=== PATIENT | male | born 1985 | race Two or more races ===

== ENCOUNTER 2018-03-04 17:28 | Emergency (ER) | payer MEDICAID ==
[~2018-03-04] VITALS: Ht 177.8 cm; Wt 138.4 kg
[2018-03-04] MEDS ORDERED: KETOROLAC 30 MG/1 ML IM ONE (18:00)
[2018-03-04 18:05] LABS: MICROSCOPIC INDICATED
[2018-03-04 18:06] LABS: BASOPHILS # (AUTO) 0.08 x10^3/uL (0-0.1); BASOPHILS % (AUTO) 1 % (0-1); EOSINOPHILS # (AUTO) 0.12 x10^3/uL (0-0.4); EOSINOPHILS % (AUTO) 1 % (1-7); LYMPHOCYTES # (AUTO) 1.66 x10^3/uL (1-3.4); LYMPHOCYTES % (AUTO) 15 % (22-44); MD NO; MEAN CORPUSCULAR HEMOGLOBIN 28.9 pg (27.5-34.5); MEAN CORPUSCULAR HGB CONC 33.9 g/dL (33.2-36.2); MEAN CORPUSCULAR VOLUME 85.1 fL (81-97); MEAN PLATELET VOLUME 7.5 fL (7.4-10.4); MONOCYTES # (AUTO) 0.55 x10^3/uL (0.2-0.8); MONOCYTES % (AUTO) 5 % (2-9); NEUTROPHILS # (AUTO) 8.38 x10^3/uL (1.8-6.8); NEUTROPHILS % (AUTO) 78 % (42-75); PLATELET COUNT 354 x10^3/uL (130-400); RED BLOOD COUNT 4.44 x10^6/uL (4.38-5.82); RED CELL DISTRIBUTION WIDTH 13.8 % (9.4-14.8)
[2018-03-04 18:14] LABS: CULTURE INDICATED? YES
[2018-03-04 18:16] LABS: ALANINE AMINOTRANSFERASE 24 U/L (12-78); ALBUMIN 4.1 g/dL (3.4-5.0); ANION GAP 11 mmol/L (5-15); CALCIUM 8.6 mg/dL (8.5-10.1); CHLORIDE 112 mmol/L (98-107); CREATININE 8.86 mg/dL (0.7-1.3)
[2018-03-04 18:18] LABS: ALKALINE PHOSPHATASE 85 U/L (45-117); BILIRUBIN,TOTAL 0.4 mg/dL (0.2-1.0); TOTAL PROTEIN 8.7 g/dL (6.4-8.2)
[2018-03-04] MEDS ORDERED: KETOROLAC 30 MG/1 ML ONE (18:31)
[2018-03-04 19:14] VITALS: BP 158/101
== END 2018-03-04 19:17 | disposition home or self-care (01) ==
LOC: ED 18:28
DX: Q61.3 Polycystic kidney, unspecified (principal); N18.9 Chronic kidney disease, unspecified
CPT/HCPCS: 36415; 71045; 74176; 80053; 81001; 83690; 85025; 87086; 96372; 99285; J1885

== ENCOUNTER 2018-05-05 01:21 | Inpatient (IN) | payer MEDICAID ==
[~2018-05-05] VITALS: Ht 179.1 cm; Wt 113.5 kg
--- NOTE | 2018-05-05 01:37 | NUR ---
pt presented with c/o lower abd cramping, nausea. provided pt with urine cup, monitor applied, call light within reach, erp at pt's bedside for eval.
[2018-05-05] MEDS ORDERED: KETOROLAC 30 MG/1 ML ONE (01:43)
[2018-05-05] MEDS ORDERED: ONDANSETRON ODT 4 MG ONE (01:44)
[2018-05-05] MEDS ORDERED: HYDROcodone/APAP 5/325 TABLET ONE (01:44)
[2018-05-05 01:50] LABS: BASOPHILS # (AUTO) 0.07 x10^3/uL (0-0.1); BASOPHILS % (AUTO) 0 % (0-1); EOSINOPHILS # (AUTO) 0.17 x10^3/uL (0-0.4); EOSINOPHILS % (AUTO) 1 % (1-7); LYMPHOCYTES # (AUTO) 1.63 x10^3/uL (1-3.4); LYMPHOCYTES % (AUTO) 9 % (22-44); MD NO; MEAN CORPUSCULAR HEMOGLOBIN 28.9 pg (27.5-34.5); MEAN PLATELET VOLUME 7.3 fL (7.4-10.4); MONOCYTES # (AUTO) 0.88 x10^3/uL (0.2-0.8); MONOCYTES % (AUTO) 5 % (2-9); NEUTROPHILS # (AUTO) 15.23 x10^3/uL (1.8-6.8); NEUTROPHILS % (AUTO) 85 % (42-75); PLATELET COUNT 404 x10^3/uL (130-400); RED BLOOD COUNT 4.13 x10^6/uL (4.38-5.82); RED CELL DISTRIBUTION WIDTH 14.4 % (9.4-14.8)
--- NOTE | 2018-05-05 01:54 | NUR ---
pt medicated per jul, awaiting xray and lab result
[2018-05-05] MEDS ORDERED: KETOROLAC 30 MG/1 ML IM ONE (02:00)
[2018-05-05] MEDS ORDERED: ONDANSETRON ODT 4 MG PO ONE (02:00)
[2018-05-05] MEDS ORDERED: HYDROcodone/APAP 5/325 TABLET PO ONE (02:00)
[2018-05-05 02:01] LABS: MICROSCOPIC AUTO
[2018-05-05 02:03] LABS: ALANINE AMINOTRANSFERASE 30 U/L (12-78); ALBUMIN 3.7 g/dL (3.4-5.0); ANION GAP 14 mmol/L (5-15); CALCIUM 8.4 mg/dL (8.5-10.1); CHLORIDE 112 mmol/L (98-107); CREATININE 8.82 mg/dL (0.7-1.3)
[2018-05-05 02:06] LABS: ALKALINE PHOSPHATASE 83 U/L (45-117); BILIRUBIN,TOTAL 0.2 mg/dL (0.2-1.0); TOTAL PROTEIN 8.4 g/dL (6.4-8.2)
[2018-05-05 02:10] LABS: CULTURE INDICATED? NO
--- NOTE | 2018-05-05 02:14 | NUR ---
PT TO XRAY
--- NOTE | 2018-05-05 02:26 | NUR ---
pt to ct
[2018-05-05] MEDS ORDERED: CEFTRIAXONE PMX 1GM/50ML 50 ML IV ONE (03:00)
[2018-05-05] MEDS ORDERED: METRONIDAZOLE PMX 500MG/100ML 100 ML IV ONE (03:00)
[2018-05-05] MEDS ORDERED: SODIUM CHLORIDE FLUSH 10ML SYR IVF ONE (03:00)
[2018-05-05] MEDS ORDERED: MORPHINE SULFATE 4 MG/ML, 1ML IVPush PRN (03:00)
[2018-05-05] MEDS ORDERED: SODIUM CHLORIDE 0.9% 1,000ML IVBOLUS ONE (03:00)
[2018-05-05] MEDS ORDERED: CEFTRIAXONE PMX 1GM/50ML 50 ML ONE (03:03)
[2018-05-05] MEDS ORDERED: METRONIDAZOLE PMX 500MG/100ML 100 ML ONE (03:03)
--- NOTE | 2018-05-05 03:06 | NUR ---
iv site started, iv fluids and abx infusing.
[2018-05-05 03:59] VITALS: BP 175/109
[2018-05-05] MEDS ORDERED: hydrALAzine 20 MG/ML, 1ML IV PRN (04:00)
[2018-05-05 04:13] VITALS: BP 175/109
[2018-05-05] MEDS ORDERED: SODIUM CHLORIDE 0.9% 1,000 ML IV SCH (04:34)
[2018-05-05] MEDS: morphine SULFATE 10 MG/ML, 1ML IVPush PRN ×6 (05:34→22:21)
[2018-05-05] MEDS: SODIUM BICARBONATE 8.4% 150 MEQ in DEXTROSE 5% 1,000 ML IV SCH ×3 (05:34→16:12)
[2018-05-05 07:33] VITALS: BP 161/78
[2018-05-05 08:14] LABS: CHLORIDE,URINE RANDOM 37 mmol/L; POTASSIUM,URINE RANDOM 18 mmol/L; SODIUM,URINE RANDOM 44 mmol/L
[2018-05-05] MEDS: HEPARIN 5,000 UNITS/ML, 1ML SQ SCH ×2 (09:00→19:21)
[2018-05-05 12:27] VITALS: BP 163/107
[2018-05-05] MEDS: METRONIDAZOLE PMX 500MG/100ML 100 ML IV SCH ×2 (12:55→19:18)
[2018-05-05 19:17] VITALS: BP 151/89
[2018-05-06 01:02] VITALS: BP 157/116
[2018-05-06] MEDS: hydrALAzine 20 MG/ML, 1ML IV PRN (01:09)
[2018-05-06] MEDS: morphine SULFATE 10 MG/ML, 1ML IVPush PRN ×6 (01:24→21:40)
[2018-05-06] MEDS: ACETAMINOPHEN 325 MG TABLET PO PRN ×2 (01:29→09:08)
[2018-05-06] MEDS: SODIUM BICARBONATE 8.4% 150 MEQ in DEXTROSE 5% 1,000 ML IV SCH ×2 (01:29→14:20)
[2018-05-06 02:07] VITALS: BP 138/89
[2018-05-06] MEDS: CEFTRIAXONE PMX 1GM/50ML 50 ML IV SCH (02:53)
[2018-05-06] MEDS: METRONIDAZOLE PMX 500MG/100ML 100 ML IV SCH ×3 (03:31→17:47)
[2018-05-06 05:58] LABS: BASOPHILS # (AUTO) 0.01 x10^3/uL (0-0.1); BASOPHILS % (AUTO) 0 % (0-1); EOSINOPHILS # (AUTO) 0.07 x10^3/uL (0-0.4); EOSINOPHILS % (AUTO) 0 % (1-7); LYMPHOCYTES % (AUTO) 6 % (22-44); MD NO; MEAN CORPUSCULAR HGB CONC 34.1 g/dL (33.2-36.2); MEAN CORPUSCULAR VOLUME 85.2 fL (81-97); MEAN PLATELET VOLUME 7.9 fL (7.4-10.4); MONOCYTES # (AUTO) 0.76 x10^3/uL (0.2-0.8); MONOCYTES % (AUTO) 5 % (2-9); NEUTROPHILS # (AUTO) 14.11 x10^3/uL (1.8-6.8); NEUTROPHILS % (AUTO) 89 % (42-75); PLATELET COUNT 260 x10^3/uL (130-400); RED CELL DISTRIBUTION WIDTH 14.1 % (9.4-14.8)
[2018-05-06 06:15] LABS: CHLORIDE 110 mmol/L (98-107)
[2018-05-06 06:22] LABS: ALANINE AMINOTRANSFERASE 17 U/L (12-78); ALBUMIN 2.9 g/dL (3.4-5.0); ALKALINE PHOSPHATASE 66 U/L (45-117); ANION GAP 12 mmol/L (5-15); BILIRUBIN,TOTAL 0.5 mg/dL (0.2-1.0); CALCIUM 7.7 mg/dL (8.5-10.1); CREATININE 9.11 mg/dL (0.7-1.3); TOTAL PROTEIN 6.9 g/dL (6.4-8.2)
[2018-05-06 06:46] VITALS: BP 139/87
[2018-05-06] MEDS: HEPARIN 5,000 UNITS/ML, 1ML SQ SCH ×2 (09:00→21:00)
[2018-05-06 12:31] VITALS: BP 148/99
[2018-05-06] MEDS ORDERED: MORPHINE SULFATE 4 MG/ML, 1ML ONE (14:16)
[2018-05-06 19:20] VITALS: BP 137/85
[2018-05-07] MEDS: morphine SULFATE 10 MG/ML, 1ML IVPush PRN ×7 (01:06→23:19)
[2018-05-07 01:11] VITALS: BP 146/98
[2018-05-07] MEDS: ACETAMINOPHEN 325 MG TABLET PO PRN (01:16)
[2018-05-07] MEDS: METRONIDAZOLE PMX 500MG/100ML 100 ML IV SCH ×3 (03:06→20:00)
[2018-05-07] MEDS: CEFTRIAXONE PMX 1GM/50ML 50 ML IV SCH (04:12)
[2018-05-07] MEDS: SODIUM BICARBONATE 8.4% 150 MEQ in DEXTROSE 5% 1,000 ML IV SCH (04:41)
[2018-05-07 06:59] VITALS: BP 157/92
[2018-05-07] MEDS: HEPARIN 5,000 UNITS/ML, 1ML SQ SCH ×2 (08:01→20:01)
[2018-05-07 08:38] LABS: MEAN CORPUSCULAR HGB CONC 33.1 g/dL (33.2-36.2); MEAN CORPUSCULAR VOLUME 84.6 fL (81-97); MEAN PLATELET VOLUME 7.7 fL (7.4-10.4); PLATELET COUNT 251 x10^3/uL (130-400); RED BLOOD COUNT 3.56 x10^6/uL (4.38-5.82); RED CELL DISTRIBUTION WIDTH 14.3 % (9.4-14.8)
[2018-05-07 08:39] LABS: ALBUMIN 2.8 g/dL (3.4-5.0); ANION GAP 11 mmol/L (5-15); CALCIUM 8.6 mg/dL (8.5-10.1); CHLORIDE 104 mmol/L (98-107); CREATININE 9.59 mg/dL (0.7-1.3)
[2018-05-07 09:25] LABS: BASOPHILS # (AUTO) 0.06 x10^3/uL (0-0.1); BASOPHILS % (AUTO) 0 % (0-1); EOSINOPHILS # (AUTO) 0.04 x10^3/uL (0-0.4); EOSINOPHILS % (AUTO) 0 % (1-7); LYMPHOCYTES # (AUTO) 0.65 x10^3/uL (1-3.4); LYMPHOCYTES % (AUTO) 4 % (22-44); MD SCAN; MONOCYTES # (AUTO) 0.57 x10^3/uL (0.2-0.8); MONOCYTES % (AUTO) 4 % (2-9); NEUTROPHILS # (AUTO) 14.98 x10^3/uL (1.8-6.8); NEUTROPHILS % (AUTO) 92 % (42-75)
[2018-05-07] MEDS: SIMETHICONE 125 MG CHEW TAB PO SCH ×3 (11:00→20:00)
[2018-05-07 12:39] VITALS: BP 152/102
[2018-05-07 16:25] LABS: MICROSCOPIC AUTO
[2018-05-07 16:28] LABS: CULTURE INDICATED? NO
[2018-05-07 18:46] VITALS: BP 140/89
[2018-05-08 00:34] VITALS: BP 150/93
[2018-05-08] MEDS: morphine SULFATE 10 MG/ML, 1ML IVPush PRN ×5 (02:28→22:39)
[2018-05-08] MEDS: METRONIDAZOLE PMX 500MG/100ML 100 ML IV SCH ×3 (03:13→21:10)
[2018-05-08] MEDS: CEFTRIAXONE PMX 1GM/50ML 50 ML IV SCH (04:18)
[2018-05-08 05:47] LABS: BASOPHILS # (AUTO) 0.01 x10^3/uL (0-0.1); BASOPHILS % (AUTO) 0 % (0-1); EOSINOPHILS % (AUTO) 2 % (1-7); LYMPHOCYTES # (AUTO) 1.19 x10^3/uL (1-3.4); LYMPHOCYTES % (AUTO) 9 % (22-44); MD NO; MEAN CORPUSCULAR HEMOGLOBIN 29.8 pg (27.5-34.5); MEAN CORPUSCULAR HGB CONC 34.9 g/dL (33.2-36.2); MEAN CORPUSCULAR VOLUME 85.2 fL (81-97); MEAN PLATELET VOLUME 7.9 fL (7.4-10.4); MONOCYTES # (AUTO) 0.73 x10^3/uL (0.2-0.8); MONOCYTES % (AUTO) 6 % (2-9); NEUTROPHILS % (AUTO) 84 % (42-75); PLATELET COUNT 241 x10^3/uL (130-400); RED BLOOD COUNT 3.26 x10^6/uL (4.38-5.82); RED CELL DISTRIBUTION WIDTH 14.7 % (9.4-14.8)
[2018-05-08 05:51] LABS: CHLORIDE 103 mmol/L (98-107)
[2018-05-08 05:58] LABS: ALANINE AMINOTRANSFERASE 14 U/L (12-78); ALBUMIN 2.8 g/dL (3.4-5.0); ALKALINE PHOSPHATASE 82 U/L (45-117); ANION GAP 14 mmol/L (5-15); BILIRUBIN,TOTAL 0.3 mg/dL (0.2-1.0); CALCIUM 8.8 mg/dL (8.5-10.1); CREATININE 9.47 mg/dL (0.7-1.3); TOTAL PROTEIN 7.4 g/dL (6.4-8.2)
[2018-05-08 07:42] VITALS: BP 144/97
[2018-05-08] MEDS: ACETAMINOPHEN 325 MG TABLET PO PRN (09:13)
[2018-05-08] MEDS: SIMETHICONE 125 MG CHEW TAB PO SCH ×4 (09:13→21:10)
[2018-05-08] MEDS: HEPARIN 5,000 UNITS/ML, 1ML SQ SCH ×2 (09:13→21:10)
[2018-05-08] MEDS ORDERED: MAGNESIUM SULFATE PMX 2GM/50ML 50 ML IV ONE (11:00)
[2018-05-08 12:35] VITALS: BP 164/111
[2018-05-08] MEDS: POTASSIUM CHLORIDE 20 MEQ TAB.ER.PRT PO SCH ×2 (12:48→17:02)
[2018-05-08] MEDS: hydrALAzine 20 MG/ML, 1ML IV PRN (13:12)
[2018-05-08] MEDS: CARVEDILOL 3.125 MG TABLET PO SCH (17:57)
[2018-05-08] MEDS: POLYETHYLENE GLYCOL 17 GM PACKET PO PRN (18:01)
[2018-05-08 18:07] VITALS: BP 142/92
[2018-05-08 19:54] VITALS: BP 146/91
[2018-05-09 01:46] VITALS: BP 146/96
[2018-05-09] MEDS: morphine SULFATE 10 MG/ML, 1ML IVPush PRN ×6 (02:49→22:55)
[2018-05-09] MEDS: CEFTRIAXONE PMX 1GM/50ML 50 ML IV SCH (04:06)
[2018-05-09] MEDS: CARVEDILOL 3.125 MG TABLET PO SCH ×2 (05:21→17:00)
[2018-05-09] MEDS: METRONIDAZOLE PMX 500MG/100ML 100 ML IV SCH ×3 (05:21→20:36)
[2018-05-09] MEDS: ACETAMINOPHEN 325 MG TABLET PO PRN (05:24)
[2018-05-09 06:17] LABS: BASOPHILS # (AUTO) 0.03 x10^3/uL (0-0.1); BASOPHILS % (AUTO) 0 % (0-1); EOSINOPHILS % (AUTO) 3 % (1-7); LYMPHOCYTES # (AUTO) 1.19 x10^3/uL (1-3.4); LYMPHOCYTES % (AUTO) 12 % (22-44); MD NO; MEAN CORPUSCULAR HEMOGLOBIN 28.5 pg (27.5-34.5); MEAN CORPUSCULAR HGB CONC 33.4 g/dL (33.2-36.2); MEAN CORPUSCULAR VOLUME 85.4 fL (81-97); MEAN PLATELET VOLUME 7.6 fL (7.4-10.4); MONOCYTES # (AUTO) 0.64 x10^3/uL (0.2-0.8); MONOCYTES % (AUTO) 7 % (2-9); NEUTROPHILS # (AUTO) 7.64 x10^3/uL (1.8-6.8); NEUTROPHILS % (AUTO) 78 % (42-75); PLATELET COUNT 318 x10^3/uL (130-400); RED BLOOD COUNT 3.43 x10^6/uL (4.38-5.82); RED CELL DISTRIBUTION WIDTH 14.3 % (9.4-14.8)
[2018-05-09 06:29] LABS: % IRON SATURATION 20 % (20-55); ANION GAP 12 mmol/L (5-15); CALCIUM 8.9 mg/dL (8.5-10.1); CHLORIDE 104 mmol/L (98-107); CREATININE 9.11 mg/dL (0.7-1.3); IRON LEVEL 28 mcg/dL (65-175); TOTAL IRON BINDING CAPACITY 139 mcg/dL (250-450)
[2018-05-09 06:52] VITALS: BP 149/99
[2018-05-09] MEDS: POTASSIUM CHLORIDE 20 MEQ TAB.ER.PRT PO SCH (08:36)
[2018-05-09] MEDS: SIMETHICONE 125 MG CHEW TAB PO SCH ×5 (08:37→21:00)
[2018-05-09] MEDS: HEPARIN 5,000 UNITS/ML, 1ML SQ SCH ×2 (08:37→20:36)
[2018-05-09] MEDS: ONDANSETRON ODT 4 MG PO PRN (08:46)
[2018-05-09 12:50] VITALS: BP 165/119
[2018-05-09] MEDS ORDERED: DARBEPOETIN 40 MCG/ML SQ SCH (14:30)
[2018-05-09 16:53] VITALS: BP 167/98
[2018-05-09 20:00] VITALS: BP 144/85
[2018-05-09] MEDS ORDERED: PINK BISMUTH 87.33 MG/5 ML ORAL SUSP PO SCH (20:30)
[2018-05-10 01:57] VITALS: BP 152/89
[2018-05-10] MEDS: ACETAMINOPHEN 325 MG TABLET PO PRN ×2 (02:12→22:11)
[2018-05-10] MEDS: morphine SULFATE 10 MG/ML, 1ML IVPush PRN ×4 (02:15→21:52)
[2018-05-10] MEDS: CEFTRIAXONE PMX 1GM/50ML 50 ML IV SCH (02:16)
[2018-05-10 05:10] VITALS: BP 151/92
[2018-05-10] MEDS: METRONIDAZOLE PMX 500MG/100ML 100 ML IV SCH ×3 (05:11→21:51)
[2018-05-10] MEDS: CARVEDILOL 3.125 MG TABLET PO SCH ×2 (05:11→17:14)
[2018-05-10 05:25] LABS: BASOPHILS # (AUTO) 0.01 x10^3/uL (0-0.1); BASOPHILS % (AUTO) 0 % (0-1); EOSINOPHILS % (AUTO) 2 % (1-7); LYMPHOCYTES # (AUTO) 1.15 x10^3/uL (1-3.4); LYMPHOCYTES % (AUTO) 9 % (22-44); MD NO; MEAN CORPUSCULAR HEMOGLOBIN 28.7 pg (27.5-34.5); MEAN CORPUSCULAR HGB CONC 33.5 g/dL (33.2-36.2); MEAN CORPUSCULAR VOLUME 85.6 fL (81-97); MEAN PLATELET VOLUME 7.6 fL (7.4-10.4); MONOCYTES # (AUTO) 1.05 x10^3/uL (0.2-0.8); MONOCYTES % (AUTO) 8 % (2-9); NEUTROPHILS # (AUTO) 11.16 x10^3/uL (1.8-6.8); NEUTROPHILS % (AUTO) 82 % (42-75); PLATELET COUNT 296 x10^3/uL (130-400); RED BLOOD COUNT 3.47 x10^6/uL (4.38-5.82)
[2018-05-10 05:33] LABS: INTERNATIONAL NORMALIZED RATIO 1.09 (0.93-1.1); PROTHROMBIN TIME 11.5 Seconds (9.6-11.5)
[2018-05-10 05:40] LABS: ALBUMIN 2.8 g/dL (3.4-5.0); ANION GAP 12 mmol/L (5-15); CALCIUM 8.7 mg/dL (8.5-10.1); CHLORIDE 104 mmol/L (98-107)
[2018-05-10] MEDS: SIMETHICONE 125 MG CHEW TAB PO SCH ×4 (07:00→21:51)
[2018-05-10] MEDS: ONDANSETRON 2MG/ML, 2ML IVPush PRN (07:49)
[2018-05-10] MEDS ORDERED: POTASSIUM CHLORIDE 20 MEQ TAB.ER.PRT PO SCH (08:00)
[2018-05-10 08:02] VITALS: BP 148/93
[2018-05-10] MEDS: HEPARIN 5,000 UNITS/ML, 1ML SQ SCH ×2 (09:00→21:52)
[2018-05-10] MEDS ORDERED: LIDOCAINE/PF 1%, 30ML ONE (12:27)
[2018-05-10] MEDS ORDERED: FENTANYL PF 100 MCG/2ML ONE (12:45)
[2018-05-10] MEDS ORDERED: FLUMAZENIL 0.1 MG/1 ML, 5ML ONE (12:46)
[2018-05-10] MEDS ORDERED: NALOXONE 1 MG/ML, 2ML ONE (12:46)
[2018-05-10] MEDS ORDERED: MIDAZOLAM 1 MG/ML, 5ML ONE (12:46)
[2018-05-10 14:10] VITALS: BP 138/87
[2018-05-10] MEDS: FERROUS SULFATE 325 MG TABLET PO SCH (15:43)
[2018-05-10] MEDS: MULTIVITS,STRESS FORMULA 1 TABLET PO SCH (15:43)
[2018-05-10] MEDS: ERGOCALCIFEROL 50,000 UNIT CAPSULE PO SCH (15:44)
[2018-05-10] MEDS: CALCITRIOL 0.25 MCG CAPSULE PO SCH (15:44)
[2018-05-10 21:52] VITALS: BP 135/96
[2018-05-10] MEDS: LISINOPRIL 10 MG TABLET PO SCH (21:52)
[2018-05-10 22:57] VITALS: BP 133/78
[2018-05-11] VITALS (7 sets, daily range): BP systolic 111–126; BP diastolic 66–85
[2018-05-11] MEDS: morphine SULFATE 10 MG/ML, 1ML IVPush PRN ×5 (03:24→21:52)
[2018-05-11] MEDS: CEFTRIAXONE PMX 1GM/50ML 50 ML IV SCH (04:54)
[2018-05-11 05:09] LABS: BASOPHILS # (AUTO) 0.03 x10^3/uL (0-0.1); BASOPHILS % (AUTO) 0 % (0-1); EOSINOPHILS # (AUTO) 0.27 x10^3/uL (0-0.4); EOSINOPHILS % (AUTO) 2 % (1-7); LYMPHOCYTES # (AUTO) 1.15 x10^3/uL (1-3.4); LYMPHOCYTES % (AUTO) 9 % (22-44); MD NO; MEAN CORPUSCULAR HEMOGLOBIN 28.4 pg (27.5-34.5); MEAN CORPUSCULAR HGB CONC 33.3 g/dL (33.2-36.2); MEAN CORPUSCULAR VOLUME 85.1 fL (81-97); MEAN PLATELET VOLUME 7.6 fL (7.4-10.4); MONOCYTES % (AUTO) 9 % (2-9); NEUTROPHILS # (AUTO) 10.63 x10^3/uL (1.8-6.8); NEUTROPHILS % (AUTO) 80 % (42-75); PLATELET COUNT 301 x10^3/uL (130-400); RED BLOOD COUNT 3.44 x10^6/uL (4.38-5.82); RED CELL DISTRIBUTION WIDTH 14.1 % (9.4-14.8)
[2018-05-11 05:20] LABS: ALBUMIN 2.8 g/dL (3.4-5.0); ANION GAP 13 mmol/L (5-15); CALCIUM 8.4 mg/dL (8.5-10.1); CHLORIDE 102 mmol/L (98-107); CREATININE 8.06 mg/dL (0.7-1.3)
[2018-05-11] MEDS: CARVEDILOL 3.125 MG TABLET PO SCH ×2 (06:00→16:28)
[2018-05-11] MEDS: METRONIDAZOLE PMX 500MG/100ML 100 ML IV SCH ×3 (06:00→21:51)
[2018-05-11] MEDS: CALCITRIOL 0.25 MCG CAPSULE PO SCH (07:49)
[2018-05-11] MEDS: MULTIVITS,STRESS FORMULA 1 TABLET PO SCH (07:49)
[2018-05-11] MEDS: LISINOPRIL 10 MG TABLET PO SCH ×2 (07:49→21:53)
[2018-05-11] MEDS: FERROUS SULFATE 325 MG TABLET PO SCH (07:49)
[2018-05-11] MEDS: SIMETHICONE 125 MG CHEW TAB PO SCH ×4 (07:49→21:52)
[2018-05-11] MEDS: PANTOPROZOLE 40MG TABLET PO SCH (09:18)
[2018-05-11] MEDS: POTASSIUM CHLORIDE 20 MEQ TAB.ER.PRT PO SCH ×2 (09:18→16:28)
[2018-05-11] MEDS: HEPARIN 5,000 UNITS/ML, 1ML SQ SCH ×2 (12:20→21:52)
[2018-05-12 02:43] VITALS: BP 138/81
[2018-05-12] MEDS: ACETAMINOPHEN 325 MG TABLET PO PRN ×2 (02:47→12:07)
[2018-05-12] MEDS: ONDANSETRON 2MG/ML, 2ML IVPush PRN (02:47)
[2018-05-12] MEDS: POLYETHYLENE GLYCOL 17 GM PACKET PO PRN (02:54)
[2018-05-12] MEDS: morphine SULFATE 10 MG/ML, 1ML IVPush PRN ×2 (03:01→12:54)
[2018-05-12] MEDS: CEFTRIAXONE PMX 1GM/50ML 50 ML IV SCH (03:03)
[2018-05-12] MEDS: METRONIDAZOLE PMX 500MG/100ML 100 ML IV SCH ×2 (05:19→13:18)
[2018-05-12] MEDS: CARVEDILOL 3.125 MG TABLET PO SCH ×2 (05:19→17:15)
[2018-05-12 05:23] VITALS: BP 107/74
[2018-05-12 05:25] LABS: CHLORIDE 101 mmol/L (98-107)
[2018-05-12 05:30] LABS: ALBUMIN 2.7 g/dL (3.4-5.0); ANION GAP 11 mmol/L (5-15); CALCIUM 8.8 mg/dL (8.5-10.1); CREATININE 7.45 mg/dL (0.7-1.3)
[2018-05-12 05:32] LABS: BASOPHILS # (AUTO) 0.01 x10^3/uL (0-0.1); BASOPHILS % (AUTO) 0 % (0-1); EOSINOPHILS # (AUTO) 0.15 x10^3/uL (0-0.4); EOSINOPHILS % (AUTO) 1 % (1-7); LYMPHOCYTES # (AUTO) 0.87 x10^3/uL (1-3.4); LYMPHOCYTES % (AUTO) 5 % (22-44); MD NO; MEAN CORPUSCULAR HEMOGLOBIN 28.4 pg (27.5-34.5); MEAN CORPUSCULAR HGB CONC 33.3 g/dL (33.2-36.2); MEAN CORPUSCULAR VOLUME 85.2 fL (81-97); MEAN PLATELET VOLUME 7.6 fL (7.4-10.4); MONOCYTES # (AUTO) 1.05 x10^3/uL (0.2-0.8); MONOCYTES % (AUTO) 7 % (2-9); NEUTROPHILS # (AUTO) 13.91 x10^3/uL (1.8-6.8); NEUTROPHILS % (AUTO) 87 % (42-75); PLATELET COUNT 317 x10^3/uL (130-400); RED BLOOD COUNT 3.58 x10^6/uL (4.38-5.82); RED CELL DISTRIBUTION WIDTH 14.2 % (9.4-14.8)
[2018-05-12 07:40] VITALS: BP 112/78
[2018-05-12] MEDS: ALBUTEROL/IPRATROPIUM 2.5MG/0.5MG, 3 ML NPPB SCH ×2 (07:40→23:00)
[2018-05-12] MEDS: MULTIVITS,STRESS FORMULA 1 TABLET PO SCH (08:36)
[2018-05-12] MEDS: SIMETHICONE 125 MG CHEW TAB PO SCH ×4 (08:37→22:42)
[2018-05-12] MEDS: PANTOPROZOLE 40MG TABLET PO SCH (08:37)
[2018-05-12] MEDS: CALCITRIOL 0.25 MCG CAPSULE PO SCH (08:37)
[2018-05-12] MEDS: LISINOPRIL 10 MG TABLET PO SCH ×2 (08:37→22:42)
[2018-05-12] MEDS: POTASSIUM CHLORIDE 20 MEQ TAB.ER.PRT PO SCH (08:37)
[2018-05-12] MEDS: FERROUS SULFATE 325 MG TABLET PO SCH (08:37)
[2018-05-12] MEDS: HEPARIN 5,000 UNITS/ML, 1ML SQ SCH ×2 (12:00→22:42)
[2018-05-12] MEDS ORDERED: BISACODYL 10 MG SUPP ONE (13:16)
[2018-05-12] MEDS: LORazepam 0.5MG TABLET PO PRN (13:19)
[2018-05-12 13:20] VITALS: BP 91/61
[2018-05-12] MEDS ORDERED: BISACODYL 10 MG SUPP PR ONE (13:30)
[2018-05-12 14:54] VITALS: BP 117/77
[2018-05-12] MEDS ORDERED: HYDROmorphone 2 MG/ML, 1ML ONE ×2 (15:54→16:39)
[2018-05-12] MEDS: HYDROmorphone 1 MG/ML, 1ML IV PRN ×2 (16:07→16:45)
[2018-05-12] MEDS: PIPERACILLIN/TAZO/PMX 2.25GM 50 ML IV SCH (17:09)
[2018-05-12 17:20] VITALS: BP 136/71
[2018-05-12] MEDS ORDERED: FENTANYL PF 250 MCG/5ML ONE (18:16)
[2018-05-12] MEDS ORDERED: PROPOFOL 10 MG/ML, 50ML ONE (18:27)
[2018-05-12] MEDS ORDERED: ROCURONIUM 10 MG/ML,10ML ONE (18:27)
[2018-05-12] MEDS ORDERED: EPINEPHRINE 1 MG/ML, 1ML ONE (18:27)
[2018-05-12] MEDS ORDERED: CEFAZOLIN 1,000 MG ONE (18:27)
[2018-05-12] MEDS ORDERED: SUCCINYLCHOLINE 20 MG/ML, 10ML ONE (18:27)
[2018-05-12] MEDS ORDERED: PHENYLEPHRINE 10 MG/ML ONE (18:27)
[2018-05-12] MEDS ORDERED: MIDAZOLAM 1 MG/ML, 2ML ONE ×2 (18:54)
[2018-05-12] MEDS ORDERED: ALBUMIN HUMAN 5% 500 ML ONE (19:41)
[2018-05-12] MEDS ORDERED: PROPOFOL 50 ML ONE (20:21)
[2018-05-12] MEDS: PROPOFOL 100 ML IV PRN (21:10)
[2018-05-12] MEDS ORDERED: PROPOFOL 100 ML IV ONE (21:13)
[2018-05-13] MEDS: PIPERACILLIN/TAZO/PMX 2.25GM 50 ML IV SCH ×3 (01:04→17:11)
[2018-05-13] MEDS: FENTANYL PF 100 MCG/2ML IVPush PRN ×7 (01:15→21:30)
[2018-05-13] MEDS: PROPOFOL 100 ML IV PRN (01:19)
[2018-05-13] MEDS: SODIUM CHLORIDE 0.9% 1,000 ML IV SCH ×3 (01:41→22:19)
[2018-05-13] MEDS: ACETAMINOPHEN 325 MG TABLET PO PRN (01:42)
[2018-05-13] MEDS ORDERED: SODIUM CHLORIDE 0.9%, 500ML IVBOLUS ONE ×2 (02:00→02:30)
[2018-05-13] MEDS: ALBUTEROL/IPRATROPIUM 2.5MG/0.5MG, 3 ML NPPB SCH ×5 (02:33→19:46)
[2018-05-13 04:00] VITALS: BP 102/63
[2018-05-13 04:33] LABS: MEAN CORPUSCULAR HEMOGLOBIN 28.6 pg (27.5-34.5); MEAN CORPUSCULAR HGB CONC 33.5 g/dL (33.2-36.2); MEAN CORPUSCULAR VOLUME 85.4 fL (81-97); MEAN PLATELET VOLUME 7.3 fL (7.4-10.4); PLATELET COUNT 249 x10^3/uL (130-400); RED BLOOD COUNT 3.67 x10^6/uL (4.38-5.82); RED CELL DISTRIBUTION WIDTH 14.6 % (9.4-14.8)
[2018-05-13 04:39] LABS: ALBUMIN 2.1 g/dL (3.4-5.0); ANION GAP 11 mmol/L (5-15); CALCIUM 7.1 mg/dL (8.5-10.1); CHLORIDE 108 mmol/L (98-107); CREATININE 7.29 mg/dL (0.7-1.3)
[2018-05-13 05:10] LABS: MD YES
[2018-05-13 05:12] LABS: BAND#(MANUAL) 2.64 x10^3/uL; BANDS%(MANUAL) 29 % (0-7); LYMPH#(MANUAL) 0.55 x10^3/uL (1-3.4); LYMPHS% (MANUAL) 6 % (22-44); SEG#(MANUAL) 5.92 x10^3/uL (1.8-6.8); SEGS% (MANUAL) 65 % (42-75)
[2018-05-13 05:14] LABS: <PLATELET ESTIMATE> ADEQUATE; ANISOCYTOSIS 1+; LARGE PLATELETS 1+; MICROCYTOSIS 1+; PMNS WITH VACUOLES 1+; TOXIC GRAN 1+
[2018-05-13] MEDS ORDERED: FENTANYL PF 2,500 MCG in SODIUM CHLORIDE 0.9% 200 ML IV PRN (05:30)
[2018-05-13] MEDS: CARVEDILOL 3.125 MG TABLET PO SCH ×2 (06:34→18:30)
[2018-05-13] MEDS: SIMETHICONE 125 MG CHEW TAB PO SCH ×4 (07:00→21:33)
[2018-05-13] MEDS: FERROUS SULFATE 325 MG TABLET PO SCH (08:00)
[2018-05-13] MEDS: PANTOPROZOLE 40MG TABLET PO SCH (09:00)
[2018-05-13] MEDS: CALCITRIOL 0.25 MCG CAPSULE PO SCH (09:00)
[2018-05-13] MEDS: LISINOPRIL 10 MG TABLET PO SCH ×2 (09:00→21:33)
[2018-05-13] MEDS: MULTIVITS,STRESS FORMULA 1 TABLET PO SCH (09:00)
[2018-05-13] MEDS ORDERED: MAGNESIUM SULFATE PMX 2GM/50ML 50 ML IV ONE (09:30)
[2018-05-13] MEDS: HYDROmorphone 2 MG/ML, 1ML IVPush PRN ×4 (09:56→22:36)
[2018-05-13] MEDS: HEPARIN 5,000 UNITS/ML, 1ML SQ SCH ×2 (09:57→21:30)
[2018-05-13] MEDS ORDERED: ALBUMIN HUMAN 25% 100 ML IV PRN (12:30)
[2018-05-14] MEDS: PIPERACILLIN/TAZO/PMX 2.25GM 50 ML IV SCH ×3 (00:13→20:40)
[2018-05-14] MEDS: HYDROmorphone 2 MG/ML, 1ML IVPush PRN ×7 (00:23→23:28)
[2018-05-14] MEDS ORDERED: SODIUM CHLORIDE 0.9%, 500ML IVBOLUS ONE (02:00)
[2018-05-14 04:00] VITALS: BP 95/47
[2018-05-14] MEDS ORDERED: ALBUTEROL SULFATE 2.5 MG/3 ML ONE (04:18)
[2018-05-14] MEDS: ALBUTEROL/IPRATROPIUM 2.5MG/0.5MG, 3 ML NPPB PRN (04:22)
[2018-05-14 04:36] LABS: MEAN CORPUSCULAR HEMOGLOBIN 28.4 pg (27.5-34.5); MEAN CORPUSCULAR HGB CONC 33.4 g/dL (33.2-36.2); MEAN CORPUSCULAR VOLUME 85.2 fL (81-97); MEAN PLATELET VOLUME 7.8 fL (7.4-10.4); PLATELET COUNT 245 x10^3/uL (130-400); RED BLOOD COUNT 3.14 x10^6/uL (4.38-5.82); RED CELL DISTRIBUTION WIDTH 14.4 % (9.4-14.8)
[2018-05-14 04:47] LABS: ALANINE AMINOTRANSFERASE 11 U/L (12-78); ALBUMIN 1.9 g/dL (3.4-5.0); ANION GAP 12 mmol/L (5-15); CALCIUM 8.2 mg/dL (8.5-10.1); CHLORIDE 102 mmol/L (98-107)
[2018-05-14 04:50] LABS: ALKALINE PHOSPHATASE 56 U/L (45-117); BILIRUBIN,TOTAL 0.5 mg/dL (0.2-1.0); TOTAL PROTEIN 5.8 g/dL (6.4-8.2)
[2018-05-14 04:51] LABS: MD YES
[2018-05-14 04:53] LABS: <PLATELET ESTIMATE> ADEQUATE; ANISOCYTOSIS 1+; BAND#(MANUAL) 1.51 x10^3/uL; BANDS%(MANUAL) 14 % (0-7); LYMPH#(MANUAL) 0.32 x10^3/uL (1-3.4); LYMPHS% (MANUAL) 3 % (22-44); MICROCYTOSIS 1+; MONOS#(MANUAL) 0.43 x10^3/uL (0.3-2.7); MONOS% (MANUAL) 4 % (2-9); PMNS WITH VACUOLES 1+; SEG#(MANUAL) 8.53 x10^3/uL (1.8-6.8); SEGS% (MANUAL) 79 % (42-75); TOXIC GRAN 1+
[2018-05-14 04:54] LABS: <PLT MORPHOLOGY> NORMAL PLT MORPH
[2018-05-14] MEDS: CARVEDILOL 3.125 MG TABLET PO SCH ×2 (06:18→17:17)
[2018-05-14] MEDS: ALBUTEROL/IPRATROPIUM 2.5MG/0.5MG, 3 ML NPPB SCH ×4 (07:00→20:00)
[2018-05-14] MEDS: SIMETHICONE 125 MG CHEW TAB PO SCH ×4 (07:00→21:00)
[2018-05-14] MEDS: FERROUS SULFATE 325 MG TABLET PO SCH (08:00)
[2018-05-14] MEDS: MULTIVITS,STRESS FORMULA 1 TABLET PO SCH (09:00)
[2018-05-14] MEDS: CALCITRIOL 0.25 MCG CAPSULE PO SCH (09:00)
[2018-05-14] MEDS: LISINOPRIL 10 MG TABLET PO SCH ×2 (09:00→21:00)
[2018-05-14] MEDS: PANTOPRAZOLE 40 MG IV IVPush SCH (11:56)
[2018-05-14] MEDS: HEPARIN 5,000 UNITS/ML, 1ML SQ SCH ×2 (11:57→20:40)
[2018-05-14] MEDS ORDERED: ALBUMIN HUMAN 25% 100 ML IV SCH (15:30)
[2018-05-14] MEDS: SODIUM CHLORIDE 0.9% 1,000 ML IV SCH (23:43)
[2018-05-15] MEDS: HYDROmorphone 2 MG/ML, 1ML IVPush PRN ×3 (03:10→09:50)
[2018-05-15] MEDS: PIPERACILLIN/TAZO/PMX 2.25GM 50 ML IV SCH ×3 (03:54→21:19)
[2018-05-15 04:00] VITALS: BP 102/52
[2018-05-15] MEDS: CARVEDILOL 3.125 MG TABLET PO SCH ×2 (06:00→15:49)
[2018-05-15] MEDS: SIMETHICONE 125 MG CHEW TAB PO SCH ×4 (07:00→21:20)
[2018-05-15] MEDS: FERROUS SULFATE 325 MG TABLET PO SCH (08:00)
[2018-05-15] MEDS: CALCITRIOL 0.25 MCG CAPSULE PO SCH (08:44)
[2018-05-15] MEDS: LISINOPRIL 10 MG TABLET PO SCH ×2 (08:44→21:20)
[2018-05-15] MEDS: MULTIVITS,STRESS FORMULA 1 TABLET PO SCH (08:45)
[2018-05-15] MEDS: HEPARIN 5,000 UNITS/ML, 1ML SQ SCH ×2 (09:00→21:20)
[2018-05-15] MEDS: PANTOPRAZOLE 40 MG IV IVPush SCH (09:50)
[2018-05-15] MEDS ORDERED: HYDROmorphone 2 MG/ML, 1ML IVPush PRN (10:30)
[2018-05-15] MEDS: ALBUTEROL/IPRATROPIUM 2.5MG/0.5MG, 3 ML NPPB SCH (11:05)
[2018-05-15 14:00] VITALS: BP 132/82
[2018-05-15 20:00] VITALS: BP 154/85
[2018-05-15] MEDS ORDERED: HYDROmorphone 1 MG/ML, 1ML IV PRN (21:00)
[2018-05-15 21:18] VITALS: BP 138/84
[2018-05-15] MEDS ORDERED: HYDROmorphone 2 MG/ML, 1ML ONE (21:32)
[2018-05-16] MEDS: HYDROmorphone 2 MG/ML, 1ML IV PRN ×8 (00:31→21:32)
[2018-05-16 02:00] VITALS: BP 125/74
[2018-05-16] MEDS: ALBUTEROL/IPRATROPIUM 2.5MG/0.5MG, 3 ML NPPB PRN ×2 (02:53→09:40)
[2018-05-16 05:53] LABS: ALBUMIN 2.2 g/dL (3.4-5.0); ANION GAP 15 mmol/L (5-15); CALCIUM 7.9 mg/dL (8.5-10.1); CHLORIDE 100 mmol/L (98-107)
[2018-05-16] MEDS: PIPERACILLIN/TAZO/PMX 2.25GM 50 ML IV SCH ×3 (05:55→21:25)
[2018-05-16] MEDS: CARVEDILOL 3.125 MG TABLET PO SCH ×2 (05:55→18:00)
[2018-05-16 05:56] LABS: ALANINE AMINOTRANSFERASE 14 U/L (12-78); ALKALINE PHOSPHATASE 82 U/L (45-117); BILIRUBIN,TOTAL 0.7 mg/dL (0.2-1.0); CREATININE 8.69 mg/dL (0.7-1.3); TOTAL PROTEIN 6.6 g/dL (6.4-8.2)
[2018-05-16] MEDS: SIMETHICONE 125 MG CHEW TAB PO SCH ×4 (07:00→21:30)
[2018-05-16 08:00] VITALS: BP 166/69
[2018-05-16] MEDS: FERROUS SULFATE 325 MG TABLET PO SCH (08:00)
[2018-05-16] MEDS: PANTOPRAZOLE 40 MG IV IVPush SCH (08:16)
[2018-05-16] MEDS: MULTIVITS,STRESS FORMULA 1 TABLET PO SCH (08:17)
[2018-05-16] MEDS: CALCITRIOL 0.25 MCG CAPSULE PO SCH (08:17)
[2018-05-16] MEDS: LISINOPRIL 10 MG TABLET PO SCH ×2 (08:17→21:32)
[2018-05-16] MEDS: HEPARIN 5,000 UNITS/ML, 1ML SQ SCH ×2 (08:17→21:29)
[2018-05-16 14:00] VITALS: BP 157/96
[2018-05-16] MEDS ORDERED: DARBEPOETIN 40 MCG/ML SQ SCH (14:30)
[2018-05-16] MEDS ORDERED: DARBEPOETIN 60 MCG/ML SQ SCH (15:30)
[2018-05-16 19:30] VITALS: BP 154/88
[2018-05-17] MEDS: HYDROmorphone 2 MG/ML, 1ML IV PRN ×9 (00:07→22:56)
[2018-05-17 01:18] VITALS: BP 144/89
[2018-05-17] MEDS: PIPERACILLIN/TAZO/PMX 2.25GM 50 ML IV SCH ×3 (04:26→19:48)
[2018-05-17] MEDS: CARVEDILOL 3.125 MG TABLET PO SCH ×2 (05:57→20:33)
[2018-05-17 05:59] LABS: CHLORIDE 99 mmol/L (98-107); MEAN CORPUSCULAR HEMOGLOBIN 28.4 pg (27.5-34.5); MEAN CORPUSCULAR HGB CONC 33.4 g/dL (33.2-36.2); MEAN CORPUSCULAR VOLUME 84.8 fL (81-97); MEAN PLATELET VOLUME 7.5 fL (7.4-10.4); PLATELET COUNT 344 x10^3/uL (130-400); RED CELL DISTRIBUTION WIDTH 14.8 % (9.4-14.8)
[2018-05-17 06:22] LABS: ALANINE AMINOTRANSFERASE 15 U/L (12-78); ALBUMIN 2.1 g/dL (3.4-5.0); ALKALINE PHOSPHATASE 105 U/L (45-117); ANION GAP 17 mmol/L (5-15); BILIRUBIN,TOTAL 0.6 mg/dL (0.2-1.0); CALCIUM 7.6 mg/dL (8.5-10.1); TOTAL PROTEIN 6.4 g/dL (6.4-8.2)
[2018-05-17 06:28] LABS: MD YES
[2018-05-17 06:29] LABS: BAND#(MANUAL) 0.46 x10^3/uL; BANDS%(MANUAL) 3 % (0-7); EOS#(MANUAL) 0.15 x10^3/uL (0.0-0.4); EOS% (MANUAL) 1 % (1-7); LYMPH#(MANUAL) 1.23 x10^3/uL (1-3.4); LYMPHS% (MANUAL) 8 % (22-44); MONOS#(MANUAL) 1.69 x10^3/uL (0.3-2.7); MONOS% (MANUAL) 11 % (2-9); SEG#(MANUAL) 11.86 x10^3/uL (1.8-6.8); SEGS% (MANUAL) 77 % (42-75)
[2018-05-17 06:31] LABS: <PLATELET ESTIMATE> ADEQUATE; <PLT MORPHOLOGY> NORMAL PLT MORPH; ANISOCYTOSIS 1+; MICROCYTOSIS 1+; TOXIC GRAN 1+
[2018-05-17] MEDS: SIMETHICONE 125 MG CHEW TAB PO SCH ×4 (06:31→20:33)
[2018-05-17] MEDS: FERROUS SULFATE 325 MG TABLET PO SCH (08:00)
[2018-05-17 08:26] VITALS: BP 135/87
[2018-05-17] MEDS: MULTIVITS,STRESS FORMULA 1 TABLET PO SCH (09:00)
[2018-05-17] MEDS: HEPARIN 5,000 UNITS/ML, 1ML SQ SCH ×2 (09:00→20:34)
[2018-05-17] MEDS: ERGOCALCIFEROL 50,000 UNIT CAPSULE PO SCH (09:00)
[2018-05-17] MEDS: LISINOPRIL 10 MG TABLET PO SCH ×2 (09:00→20:33)
[2018-05-17] MEDS: CALCITRIOL 0.25 MCG CAPSULE PO SCH (09:00)
[2018-05-17] MEDS ORDERED: LIDOCAINE-MPF 1%, 5ML ONE ×2 (09:43→10:31)
[2018-05-17] MEDS ORDERED: FENTANYL PF 100 MCG/2ML ONE (09:49)
[2018-05-17] MEDS ORDERED: MIDAZOLAM 1 MG/ML, 5ML ONE (09:49)
[2018-05-17] MEDS ORDERED: FLUMAZENIL 0.1 MG/1 ML, 5ML ONE (09:49)
[2018-05-17] MEDS ORDERED: NALOXONE 1 MG/ML, 2ML ONE (09:49)
[2018-05-17] MEDS ORDERED: VISIPAQUE 270 MG/ML, 50ML BOTTLE ONE (10:00)
[2018-05-17] MEDS ORDERED: SODIUM CHLORIDE FLUSH 10ML SYR IVF PRN (12:30)
[2018-05-17] MEDS: HEPARIN 5,000 UNITS/ML*10ML IVF SCH (12:30)
[2018-05-17 14:00] VITALS: BP 147/92
[2018-05-17] MEDS ORDERED: CATHFLO-ALTEPLASE 2 MG/2 ML CATHFLUSH ONE ×2 (16:30)
[2018-05-17 20:07] VITALS: BP 154/90
[2018-05-18 00:56] VITALS: BP 124/75
[2018-05-18] MEDS: HYDROmorphone 2 MG/ML, 1ML IV PRN ×10 (01:05→22:37)
[2018-05-18] MEDS: PIPERACILLIN/TAZO/PMX 2.25GM 50 ML IV SCH ×3 (03:36→20:23)
[2018-05-18 05:59] VITALS: BP 136/89
[2018-05-18] MEDS: CARVEDILOL 3.125 MG TABLET PO SCH ×2 (06:04→17:34)
[2018-05-18 06:36] LABS: BASOPHILS % (AUTO) 0 % (0-1); EOSINOPHILS # (AUTO) 0.47 x10^3/uL (0-0.4); EOSINOPHILS % (AUTO) 4 % (1-7); LYMPHOCYTES # (AUTO) 1.01 x10^3/uL (1-3.4); LYMPHOCYTES % (AUTO) 8 % (22-44); MD NO; MEAN CORPUSCULAR HEMOGLOBIN 28.4 pg (27.5-34.5); MEAN CORPUSCULAR HGB CONC 33.3 g/dL (33.2-36.2); MEAN CORPUSCULAR VOLUME 85.3 fL (81-97); MEAN PLATELET VOLUME 7.5 fL (7.4-10.4); MONOCYTES # (AUTO) 1.27 x10^3/uL (0.2-0.8); MONOCYTES % (AUTO) 10 % (2-9); NEUTROPHILS # (AUTO) 10.42 x10^3/uL (1.8-6.8); NEUTROPHILS % (AUTO) 79 % (42-75); PLATELET COUNT 408 x10^3/uL (130-400); RED BLOOD COUNT 2.76 x10^6/uL (4.38-5.82); RED CELL DISTRIBUTION WIDTH 14.5 % (9.4-14.8)
[2018-05-18 06:44] LABS: ANION GAP 16 mmol/L (5-15); CALCIUM 7.9 mg/dL (8.5-10.1); CHLORIDE 96 mmol/L (98-107)
[2018-05-18 06:58] VITALS: BP 117/77
[2018-05-18] MEDS: SIMETHICONE 125 MG CHEW TAB PO SCH ×4 (07:00→20:24)
[2018-05-18] MEDS: FERROUS SULFATE 325 MG TABLET PO SCH (08:00)
[2018-05-18] MEDS: LISINOPRIL 10 MG TABLET PO SCH ×2 (09:00→20:24)
[2018-05-18] MEDS: CALCITRIOL 0.25 MCG CAPSULE PO SCH (09:00)
[2018-05-18] MEDS: MULTIVITS,STRESS FORMULA 1 TABLET PO SCH (09:00)
[2018-05-18] MEDS: HEPARIN 5,000 UNITS/ML, 1ML SQ SCH ×2 (09:13→20:23)
[2018-05-18] MEDS ORDERED: FENTANYL PF 100 MCG/2ML ONE (13:27)
[2018-05-18] MEDS ORDERED: FLUMAZENIL 0.1 MG/1 ML, 5ML ONE (13:27)
[2018-05-18] MEDS ORDERED: MIDAZOLAM 1 MG/ML, 5ML ONE (13:27)
[2018-05-18] MEDS ORDERED: NALOXONE 1 MG/ML, 2ML ONE (13:28)
[2018-05-18] MEDS ORDERED: LIDOCAINE-MPF 1%, 5ML ONE (13:35)
[2018-05-18 14:55] VITALS: BP 134/93
[2018-05-18 19:22] VITALS: BP 123/80
[2018-05-19] MEDS: HYDROmorphone 2 MG/ML, 1ML IV PRN ×9 (00:45→22:45)
[2018-05-19] MEDS: ACETAMINOPHEN 325 MG TABLET PO PRN (00:45)
[2018-05-19 01:37] VITALS: BP 121/79
[2018-05-19] MEDS: PIPERACILLIN/TAZO/PMX 2.25GM 50 ML IV SCH ×3 (04:39→20:28)
[2018-05-19] MEDS: CARVEDILOL 3.125 MG TABLET PO SCH ×2 (04:53→17:33)
[2018-05-19 06:05] LABS: ANION GAP 18 mmol/L (5-15); CALCIUM 7.9 mg/dL (8.5-10.1); CHLORIDE 95 mmol/L (98-107); MEAN CORPUSCULAR HEMOGLOBIN 28.5 pg (27.5-34.5); MEAN CORPUSCULAR HGB CONC 33.7 g/dL (33.2-36.2); MEAN CORPUSCULAR VOLUME 84.6 fL (81-97); MEAN PLATELET VOLUME 7.5 fL (7.4-10.4); PLATELET COUNT 479 x10^3/uL (130-400); RED BLOOD COUNT 2.64 x10^6/uL (4.38-5.82); RED CELL DISTRIBUTION WIDTH 14.1 % (9.4-14.8)
[2018-05-19 06:29] LABS: BASOPHILS # (AUTO) 0.04 x10^3/uL (0-0.1); BASOPHILS % (AUTO) 0 % (0-1); EOSINOPHILS # (AUTO) 0.42 x10^3/uL (0-0.4); EOSINOPHILS % (AUTO) 3 % (1-7); LYMPHOCYTES # (AUTO) 1.02 x10^3/uL (1-3.4); LYMPHOCYTES % (AUTO) 7 % (22-44); MD SCAN; MONOCYTES # (AUTO) 1.34 x10^3/uL (0.2-0.8); MONOCYTES % (AUTO) 10 % (2-9); NEUTROPHILS # (AUTO) 11.15 x10^3/uL (1.8-6.8); NEUTROPHILS % (AUTO) 80 % (42-75)
[2018-05-19] MEDS: SIMETHICONE 125 MG CHEW TAB PO SCH ×4 (07:00→20:28)
[2018-05-19 07:49] VITALS: BP 145/89
[2018-05-19] MEDS ORDERED: OMNIPAQUE 350 MG/ML, 100ML BOTTLE ONE (09:31)
[2018-05-19] MEDS ORDERED: LIDOCAINE-MPF 1%, 5ML ONE (09:49)
[2018-05-19] MEDS ORDERED: MIDAZOLAM 1 MG/ML, 5ML ONE (09:52)
[2018-05-19] MEDS ORDERED: NALOXONE 1 MG/ML, 2ML ONE (09:52)
[2018-05-19] MEDS ORDERED: FLUMAZENIL 0.1 MG/1 ML, 5ML ONE (09:52)
[2018-05-19] MEDS ORDERED: FENTANYL PF 100 MCG/2ML ONE (09:52)
[2018-05-19] MEDS ORDERED: VISIPAQUE 320MG/ML, 50ML BOTTLE ONE (10:16)
[2018-05-19] MEDS: HEPARIN 5,000 UNITS/ML, 1ML SQ SCH ×2 (11:32→20:29)
[2018-05-19] MEDS: MULTIVITS,STRESS FORMULA 1 TABLET PO SCH (11:32)
[2018-05-19] MEDS: FERROUS SULFATE 325 MG TABLET PO SCH (11:32)
[2018-05-19] MEDS: CALCITRIOL 0.25 MCG CAPSULE PO SCH (11:32)
[2018-05-19] MEDS: LISINOPRIL 10 MG TABLET PO SCH ×2 (11:33→20:29)
[2018-05-19] MEDS: ALBUTEROL/IPRATROPIUM 2.5MG/0.5MG, 3 ML NPPB PRN (11:44)
[2018-05-19 20:04] VITALS: BP 139/93
[2018-05-20] MEDS: HYDROmorphone 2 MG/ML, 1ML IV PRN ×9 (01:26→22:39)
[2018-05-20 01:27] VITALS: BP 128/82
[2018-05-20] MEDS: PIPERACILLIN/TAZO/PMX 2.25GM 50 ML IV SCH ×3 (03:58→22:39)
[2018-05-20 05:30] VITALS: BP 145/90
[2018-05-20] MEDS: CARVEDILOL 3.125 MG TABLET PO SCH ×3 (05:33→17:30)
[2018-05-20 05:57] LABS: BASOPHILS # (AUTO) 0.01 x10^3/uL (0-0.1); BASOPHILS % (AUTO) 0 % (0-1); EOSINOPHILS # (AUTO) 0.47 x10^3/uL (0-0.4); EOSINOPHILS % (AUTO) 3 % (1-7); LYMPHOCYTES # (AUTO) 0.94 x10^3/uL (1-3.4); LYMPHOCYTES % (AUTO) 6 % (22-44); MD NO; MEAN CORPUSCULAR HEMOGLOBIN 28.3 pg (27.5-34.5); MEAN CORPUSCULAR HGB CONC 33.9 g/dL (33.2-36.2); MEAN CORPUSCULAR VOLUME 83.5 fL (81-97); MEAN PLATELET VOLUME 7.5 fL (7.4-10.4); MONOCYTES # (AUTO) 1.03 x10^3/uL (0.2-0.8); MONOCYTES % (AUTO) 6 % (2-9); NEUTROPHILS # (AUTO) 13.92 x10^3/uL (1.8-6.8); NEUTROPHILS % (AUTO) 85 % (42-75); PLATELET COUNT 646 x10^3/uL (130-400); RED BLOOD COUNT 2.81 x10^6/uL (4.38-5.82); RED CELL DISTRIBUTION WIDTH 14.3 % (9.4-14.8)
[2018-05-20 06:07] LABS: CHLORIDE 96 mmol/L (98-107)
[2018-05-20 06:31] LABS: ANION GAP 17 mmol/L (5-15); CALCIUM 8.5 mg/dL (8.5-10.1); CREATININE 8.77 mg/dL (0.7-1.3)
[2018-05-20 08:11] VITALS: BP 130/81
[2018-05-20] MEDS: HEPARIN 5,000 UNITS/ML, 1ML SQ SCH ×2 (08:19→22:39)
[2018-05-20] MEDS: CALCITRIOL 0.25 MCG CAPSULE PO SCH (08:19)
[2018-05-20] MEDS: SIMETHICONE 125 MG CHEW TAB PO SCH ×4 (08:19→22:39)
[2018-05-20] MEDS: MULTIVITS,STRESS FORMULA 1 TABLET PO SCH (08:19)
[2018-05-20] MEDS: FERROUS SULFATE 325 MG TABLET PO SCH (08:20)
[2018-05-20] MEDS: LISINOPRIL 10 MG TABLET PO SCH ×2 (08:20→22:40)
[2018-05-20] MEDS: HEPARIN 5,000 UNITS/ML*10ML IVF SCH (12:30)
[2018-05-20 14:40] VITALS: BP 123/79
[2018-05-20] MEDS: LORazepam 0.5MG TABLET PO PRN (18:36)
[2018-05-20 18:59] VITALS: BP 132/83
[2018-05-21 00:29] VITALS: BP 124/83
[2018-05-21] MEDS: HYDROmorphone 2 MG/ML, 1ML IV PRN ×11 (01:10→23:02)
[2018-05-21] MEDS: PIPERACILLIN/TAZO/PMX 2.25GM 50 ML IV SCH ×3 (05:21→23:01)
[2018-05-21] MEDS: CARVEDILOL 3.125 MG TABLET PO SCH ×2 (05:24→18:42)
[2018-05-21 06:22] LABS: MEAN CORPUSCULAR HEMOGLOBIN 27.5 pg (27.5-34.5); MEAN CORPUSCULAR HGB CONC 32.6 g/dL (33.2-36.2); MEAN CORPUSCULAR VOLUME 84.5 fL (81-97); MEAN PLATELET VOLUME 7.5 fL (7.4-10.4); PLATELET COUNT 679 x10^3/uL (130-400); RED BLOOD COUNT 2.79 x10^6/uL (4.38-5.82); RED CELL DISTRIBUTION WIDTH 14.3 % (9.4-14.8)
[2018-05-21 06:32] LABS: CHLORIDE 97 mmol/L (98-107)
[2018-05-21 06:36] LABS: ALBUMIN 2.2 g/dL (3.4-5.0); ANION GAP 14 mmol/L (5-15); CALCIUM 8.7 mg/dL (8.5-10.1); CREATININE 7.47 mg/dL (0.7-1.3)
[2018-05-21 06:44] LABS: BASOPHILS # (AUTO) 0.24 x10^3/uL (0-0.1); BASOPHILS % (AUTO) 1 % (0-1); EOSINOPHILS # (AUTO) 0.09 x10^3/uL (0-0.4); EOSINOPHILS % (AUTO) 1 % (1-7); LYMPHOCYTES # (AUTO) 1.18 x10^3/uL (1-3.4); LYMPHOCYTES % (AUTO) 6 % (22-44); MD SCAN; MONOCYTES # (AUTO) 1.25 x10^3/uL (0.2-0.8); MONOCYTES % (AUTO) 7 % (2-9); NEUTROPHILS # (AUTO) 16.36 x10^3/uL (1.8-6.8); NEUTROPHILS % (AUTO) 86 % (42-75)
[2018-05-21] MEDS: CALCITRIOL 0.25 MCG CAPSULE PO SCH (09:36)
[2018-05-21] MEDS: HEPARIN 5,000 UNITS/ML, 1ML SQ SCH ×2 (09:36→20:54)
[2018-05-21] MEDS: LISINOPRIL 10 MG TABLET PO SCH ×2 (09:36→20:53)
[2018-05-21] MEDS: SIMETHICONE 125 MG CHEW TAB PO SCH ×4 (09:36→20:53)
[2018-05-21] MEDS: MULTIVITS,STRESS FORMULA 1 TABLET PO SCH (09:36)
[2018-05-21] MEDS: FERROUS SULFATE 325 MG TABLET PO SCH (09:36)
[2018-05-21 09:40] VITALS: BP 117/78
[2018-05-21 13:10] VITALS: BP 137/85
[2018-05-21 14:56] LABS: HCT (SEDRATE) 24.4 % (39.2-51.8)
[2018-05-21 15:51] LABS: MICROSCOPIC AUTO
[2018-05-21 16:00] LABS: CULTURE INDICATED? YES
[2018-05-21 18:43] VITALS: BP 132/86
[2018-05-21 19:51] VITALS: BP 137/85
[2018-05-22] MEDS: HYDROmorphone 2 MG/ML, 1ML IV PRN ×8 (01:04→22:03)
[2018-05-22 01:05] VITALS: BP 138/87
[2018-05-22 05:46] LABS: BASOPHILS # (AUTO) 0.01 x10^3/uL (0-0.1); BASOPHILS % (AUTO) 0 % (0-1); EOSINOPHILS # (AUTO) 0.42 x10^3/uL (0-0.4); EOSINOPHILS % (AUTO) 2 % (1-7); LYMPHOCYTES # (AUTO) 0.95 x10^3/uL (1-3.4); LYMPHOCYTES % (AUTO) 5 % (22-44); MD NO; MEAN CORPUSCULAR HEMOGLOBIN 28.5 pg (27.5-34.5); MEAN CORPUSCULAR HGB CONC 33.9 g/dL (33.2-36.2); MEAN CORPUSCULAR VOLUME 84.3 fL (81-97); MEAN PLATELET VOLUME 6.9 fL (7.4-10.4); MONOCYTES # (AUTO) 1.03 x10^3/uL (0.2-0.8); MONOCYTES % (AUTO) 6 % (2-9); NEUTROPHILS # (AUTO) 15.52 x10^3/uL (1.8-6.8); NEUTROPHILS % (AUTO) 87 % (42-75); PLATELET COUNT 728 x10^3/uL (130-400); RED BLOOD COUNT 2.76 x10^6/uL (4.38-5.82); RED CELL DISTRIBUTION WIDTH 14.2 % (9.4-14.8)
[2018-05-22 05:51] LABS: ALBUMIN 2.2 g/dL (3.4-5.0); ANION GAP 17 mmol/L (5-15); CALCIUM 8.6 mg/dL (8.5-10.1); CHLORIDE 97 mmol/L (98-107); CREATININE 9.48 mg/dL (0.7-1.3)
[2018-05-22] MEDS: PIPERACILLIN/TAZO/PMX 2.25GM 50 ML IV SCH ×3 (05:55→19:30)
[2018-05-22] MEDS: CARVEDILOL 3.125 MG TABLET PO SCH ×2 (05:56→18:00)
[2018-05-22 07:38] VITALS: BP 123/75
[2018-05-22] MEDS: CALCITRIOL 0.25 MCG CAPSULE PO SCH (08:03)
[2018-05-22] MEDS: LISINOPRIL 10 MG TABLET PO SCH ×2 (08:04→21:00)
[2018-05-22] MEDS: MULTIVITS,STRESS FORMULA 1 TABLET PO SCH (08:04)
[2018-05-22] MEDS: SIMETHICONE 125 MG CHEW TAB PO SCH ×5 (08:04→22:01)
[2018-05-22] MEDS: FERROUS SULFATE 325 MG TABLET PO SCH (08:06)
[2018-05-22] MEDS: HEPARIN 5,000 UNITS/ML, 1ML SQ SCH ×2 (08:06→21:00)
[2018-05-22] MEDS ORDERED: MIDAZOLAM 1 MG/ML, 2ML ONE (10:09)
[2018-05-22] MEDS ORDERED: FENTANYL PF 250 MCG/5ML ONE ×2 (10:10→11:28)
[2018-05-22] MEDS ORDERED: OXYcodone 5 MG/5 ML ORAL.SOL UDC PO PRN (10:30)
[2018-05-22] MEDS ORDERED: hydrALAzine 20 MG/ML, 1ML IV PRN (10:30)
[2018-05-22] MEDS ORDERED: PROMETHAZINE 25 MG/ML, 1ML IV PRN (10:30)
[2018-05-22] MEDS ORDERED: ALBUTEROL SULFATE 2.5 MG/3 ML NPPB PRN (10:30)
[2018-05-22] MEDS ORDERED: LABETALOL 5MG/ML, 20ML IV PRN (10:30)
[2018-05-22] MEDS ORDERED: HALOPERIDOL 5 MG/ML IV PRN (10:30)
[2018-05-22] MEDS ORDERED: SUCCINYLCHOLINE 20 MG/ML, 10ML ONE (10:31)
[2018-05-22] MEDS ORDERED: PROPOFOL 10 MG/ML, 20ML ONE (10:31)
[2018-05-22] MEDS ORDERED: ONDANSETRON 2MG/ML, 2ML ONE (10:31)
[2018-05-22] MEDS ORDERED: NEOSTIGMINE 1 MG/ML, 10ML ONE (10:31)
[2018-05-22] MEDS ORDERED: GLYCOPYRROLATE 0.2MG/1ML, 5ML ONE (10:31)
[2018-05-22] MEDS ORDERED: ROCURONIUM 10 MG/ML,10ML ONE (10:31)
[2018-05-22] MEDS ORDERED: CEFOTETAN 2 GM ONE (10:31)
[2018-05-22] MEDS ORDERED: FENTANYL PF 100 MCG/2ML ONE ×2 (13:19→13:40)
[2018-05-22] MEDS ORDERED: HYDROmorphone 2 MG/ML, 1ML ONE ×2 (13:27→13:58)
[2018-05-22] MEDS: HYDROmorphone 2 MG/ML, 1ML IVPush PRN ×4 (13:31→14:05)
[2018-05-22] MEDS ORDERED: OXYcodone 5 MG/5 ML ORAL.SOL UDC ONE (13:40)
[2018-05-22] MEDS: FENTANYL PF 100 MCG/2ML IV PRN ×2 (13:46→13:57)
[2018-05-22 14:17] VITALS: BP 117/84
[2018-05-22] MEDS: DARBEPOETIN 60 MCG/ML SQ SCH (17:24)
[2018-05-22] MEDS ORDERED: CATHFLO-ALTEPLASE 2 MG/2 ML CATHFLUSH ONE (19:00)
[2018-05-22 19:32] VITALS: BP 105/71
[2018-05-22] MEDS: LACTATED RINGERS 1,000 ML IV SCH (19:48)
[2018-05-23] MEDS: HYDROmorphone 2 MG/ML, 1ML IV PRN ×6 (00:19→10:53)
[2018-05-23] MEDS: LACTATED RINGERS 1,000 ML IV SCH ×3 (02:08→20:08)
[2018-05-23 02:10] VITALS: BP 95/56
[2018-05-23] MEDS: PIPERACILLIN/TAZO/PMX 2.25GM 50 ML IV SCH ×3 (03:17→20:08)
[2018-05-23 04:37] VITALS: BP 114/83
[2018-05-23] MEDS: CARVEDILOL 3.125 MG TABLET PO SCH ×2 (05:41→17:19)
[2018-05-23 05:49] LABS: ANION GAP 15 mmol/L (5-15); CHLORIDE 101 mmol/L (98-107); CREATININE 8.99 mg/dL (0.7-1.3)
[2018-05-23 06:02] LABS: MEAN CORPUSCULAR HEMOGLOBIN 28.7 pg (27.5-34.5); MEAN CORPUSCULAR HGB CONC 33.8 g/dL (33.2-36.2); MEAN CORPUSCULAR VOLUME 84.9 fL (81-97); MEAN PLATELET VOLUME 6.9 fL (7.4-10.4); PLATELET COUNT 708 x10^3/uL (130-400); RED BLOOD COUNT 2.45 x10^6/uL (4.38-5.82); RED CELL DISTRIBUTION WIDTH 14.2 % (9.4-14.8)
[2018-05-23 06:36] LABS: MD YES
[2018-05-23 06:48] LABS: <PLATELET ESTIMATE> INCREASED; <PLT MORPHOLOGY> NORMAL PLT MORPH; LYMPH#(MANUAL) 0.52 x10^3/uL (1-3.4); LYMPHS% (MANUAL) 2 % (22-44); SEG#(MANUAL) 25.68 x10^3/uL (1.8-6.8); SEGS% (MANUAL) 98 % (42-75)
[2018-05-23 06:49] LABS: MICROCYTOSIS 1+
[2018-05-23 06:54] VITALS: BP 111/73
[2018-05-23] MEDS: CALCITRIOL 0.25 MCG CAPSULE PO SCH (08:43)
[2018-05-23] MEDS: SIMETHICONE 125 MG CHEW TAB PO SCH ×4 (08:43→20:08)
[2018-05-23] MEDS: FERROUS SULFATE 325 MG TABLET PO SCH (08:43)
[2018-05-23] MEDS: SEVELAMER CARBONATE 800MG TAB PO SCH ×3 (08:43→17:18)
[2018-05-23] MEDS: MULTIVITS,STRESS FORMULA 1 TABLET PO SCH (08:43)
[2018-05-23] MEDS: HEPARIN 5,000 UNITS/ML, 1ML SQ SCH ×2 (08:44→20:09)
[2018-05-23] MEDS: LISINOPRIL 10 MG TABLET PO SCH ×2 (09:00→20:09)
[2018-05-23] MEDS: HEPARIN 5,000 UNITS/ML*10ML IVF SCH (12:30)
[2018-05-23] MEDS: HYDROmorphone PCA 30 MG/30 ML IV PRN (12:32)
[2018-05-23 14:55] VITALS: BP 109/56
[2018-05-23] MEDS: PIPERACILLIN/TAZO 0.75 GM in SODIUM CHLORIDE 0.9% 50 ML IV SCH (17:18)
[2018-05-23] MEDS ORDERED: HYDROmorphone 2 MG/ML, 1ML IV PRN (18:30)
[2018-05-23 19:28] VITALS: BP 93/62
[2018-05-23 20:00] VITALS: BP 108/60
[2018-05-24] VITALS (8 sets, daily range): BP systolic 99–132; BP diastolic 64–87
[2018-05-24] MEDS: PIPERACILLIN/TAZO/PMX 2.25GM 50 ML IV SCH ×3 (03:48→19:41)
[2018-05-24] MEDS: LACTATED RINGERS 1,000 ML IV SCH ×2 (03:48→12:08)
[2018-05-24] MEDS: CARVEDILOL 3.125 MG TABLET PO SCH ×2 (04:59→16:42)
[2018-05-24 05:52] LABS: MEAN CORPUSCULAR HEMOGLOBIN 28.7 pg (27.5-34.5); MEAN CORPUSCULAR HGB CONC 33.6 g/dL (33.2-36.2); MEAN CORPUSCULAR VOLUME 85.4 fL (81-97); MEAN PLATELET VOLUME 7.2 fL (7.4-10.4); PLATELET COUNT 561 x10^3/uL (130-400); RED BLOOD COUNT 2.07 x10^6/uL (4.38-5.82); RED CELL DISTRIBUTION WIDTH 14.6 % (9.4-14.8)
[2018-05-24 05:58] LABS: ANION GAP 9 mmol/L (5-15); CALCIUM 7.9 mg/dL (8.5-10.1); CHLORIDE 100 mmol/L (98-107); CREATININE 8.35 mg/dL (0.7-1.3)
[2018-05-24 06:16] LABS: BASOPHILS # (AUTO) 0.02 x10^3/uL (0-0.1); BASOPHILS % (AUTO) 0 % (0-1); EOSINOPHILS # (AUTO) 0.78 x10^3/uL (0-0.4); EOSINOPHILS % (AUTO) 3 % (1-7); LYMPHOCYTES # (AUTO) 1.02 x10^3/uL (1-3.4); LYMPHOCYTES % (AUTO) 4 % (22-44); MD SCAN; MONOCYTES # (AUTO) 1.45 x10^3/uL (0.2-0.8); MONOCYTES % (AUTO) 6 % (2-9); NEUTROPHILS # (AUTO) 21.06 x10^3/uL (1.8-6.8); NEUTROPHILS % (AUTO) 87 % (42-75)
[2018-05-24] MEDS: CALCITRIOL 0.25 MCG CAPSULE PO SCH (07:50)
[2018-05-24] MEDS: FERROUS SULFATE 325 MG TABLET PO SCH (07:50)
[2018-05-24] MEDS: MULTIVITS,STRESS FORMULA 1 TABLET PO SCH (07:50)
[2018-05-24] MEDS: SIMETHICONE 125 MG CHEW TAB PO SCH ×4 (07:50→20:12)
[2018-05-24] MEDS: SEVELAMER CARBONATE 800MG TAB PO SCH ×3 (07:50→16:43)
[2018-05-24] MEDS: LISINOPRIL 10 MG TABLET PO SCH ×2 (07:51→21:27)
[2018-05-24] MEDS: HEPARIN 5,000 UNITS/ML, 1ML SQ SCH ×2 (09:00→20:12)
[2018-05-24] MEDS: PANTOPRAZOLE 40 MG IV IVPush SCH (09:09)
[2018-05-24] MEDS: ERGOCALCIFEROL 50,000 UNIT CAPSULE PO SCH (09:09)
[2018-05-24] MEDS: ACETAMINOPHEN 325 MG TABLET PO PRN (09:21)
[2018-05-25] VITALS (11 sets, daily range): BP systolic 113–130; BP diastolic 77–86
[2018-05-25] MEDS: LACTATED RINGERS 1,000 ML IV SCH ×4 (02:09→23:37)
[2018-05-25] MEDS: PIPERACILLIN/TAZO/PMX 2.25GM 50 ML IV SCH ×3 (03:49→19:55)
[2018-05-25 05:48] LABS: CHLORIDE 101 mmol/L (98-107)
[2018-05-25 05:56] LABS: MEAN CORPUSCULAR HEMOGLOBIN 28.6 pg (27.5-34.5); MEAN CORPUSCULAR HGB CONC 33.4 g/dL (33.2-36.2); MEAN CORPUSCULAR VOLUME 85.5 fL (81-97); MEAN PLATELET VOLUME 7.2 fL (7.4-10.4); PLATELET COUNT 496 x10^3/uL (130-400); RED BLOOD COUNT 2.35 x10^6/uL (4.38-5.82); RED CELL DISTRIBUTION WIDTH 14.7 % (9.4-14.8)
[2018-05-25 05:57] LABS: ALANINE AMINOTRANSFERASE 13 U/L (12-78); ALBUMIN 1.6 g/dL (3.4-5.0); ALKALINE PHOSPHATASE 67 U/L (45-117); ANION GAP 11 mmol/L (5-15); BILIRUBIN,TOTAL 0.4 mg/dL (0.2-1.0); CALCIUM 8.2 mg/dL (8.5-10.1); CREATININE 7.23 mg/dL (0.7-1.3); TOTAL PROTEIN 6.1 g/dL (6.4-8.2)
[2018-05-25 06:15] LABS: BASOPHILS # (AUTO) 0.14 x10^3/uL (0-0.1); BASOPHILS % (AUTO) 1 % (0-1); EOSINOPHILS # (AUTO) 0.17 x10^3/uL (0-0.4); EOSINOPHILS % (AUTO) 1 % (1-7); LYMPHOCYTES # (AUTO) 0.95 x10^3/uL (1-3.4); LYMPHOCYTES % (AUTO) 6 % (22-44); MD SCAN; MONOCYTES # (AUTO) 1.05 x10^3/uL (0.2-0.8); MONOCYTES % (AUTO) 7 % (2-9); NEUTROPHILS # (AUTO) 13.69 x10^3/uL (1.8-6.8); NEUTROPHILS % (AUTO) 86 % (42-75)
[2018-05-25] MEDS: SIMETHICONE 125 MG CHEW TAB PO SCH ×4 (06:24→21:49)
[2018-05-25] MEDS: CARVEDILOL 3.125 MG TABLET PO SCH ×2 (06:24→19:53)
[2018-05-25] MEDS: LISINOPRIL 10 MG TABLET PO SCH ×2 (08:27→21:00)
[2018-05-25] MEDS: MULTIVITS,STRESS FORMULA 1 TABLET PO SCH (08:34)
[2018-05-25] MEDS: PANTOPRAZOLE 40 MG IV IVPush SCH (08:34)
[2018-05-25] MEDS: HEPARIN 5,000 UNITS/ML, 1ML SQ SCH ×2 (08:34→21:49)
[2018-05-25] MEDS: SEVELAMER CARBONATE 800MG TAB PO SCH ×3 (08:35→16:57)
[2018-05-25] MEDS: FERROUS SULFATE 325 MG TABLET PO SCH (08:38)
[2018-05-25] MEDS: CALCITRIOL 0.25 MCG CAPSULE PO SCH (08:38)
[2018-05-25] MEDS: HYDROmorphone PCA 30 MG/30 ML IV PRN (09:43)
[2018-05-25] MEDS ORDERED: OMNIPAQUE 350 MG/ML, 150 ML BOTTLE ONE (12:07)
[2018-05-25] MEDS: LORazepam 0.5MG TABLET PO PRN (21:50)
[2018-05-26] MEDS: PIPERACILLIN/TAZO/PMX 2.25GM 50 ML IV SCH ×3 (03:26→20:03)
[2018-05-26 03:56] VITALS: BP 151/94
[2018-05-26 05:42] LABS: BASOPHILS # (AUTO) 0.02 x10^3/uL (0-0.1); BASOPHILS % (AUTO) 0 % (0-1); EOSINOPHILS # (AUTO) 0.24 x10^3/uL (0-0.4); EOSINOPHILS % (AUTO) 2 % (1-7); LYMPHOCYTES # (AUTO) 0.61 x10^3/uL (1-3.4); LYMPHOCYTES % (AUTO) 5 % (22-44); MD NO; MEAN CORPUSCULAR HEMOGLOBIN 29.4 pg (27.5-34.5); MEAN CORPUSCULAR HGB CONC 33.7 g/dL (33.2-36.2); MEAN CORPUSCULAR VOLUME 87.2 fL (81-97); MEAN PLATELET VOLUME 6.6 fL (7.4-10.4); MONOCYTES # (AUTO) 0.93 x10^3/uL (0.2-0.8); MONOCYTES % (AUTO) 8 % (2-9); NEUTROPHILS # (AUTO) 10.12 x10^3/uL (1.8-6.8); NEUTROPHILS % (AUTO) 85 % (42-75); PLATELET COUNT 528 x10^3/uL (130-400); RED BLOOD COUNT 2.88 x10^6/uL (4.38-5.82); RED CELL DISTRIBUTION WIDTH 14.6 % (9.4-14.8)
[2018-05-26] MEDS: CARVEDILOL 3.125 MG TABLET PO SCH ×2 (05:46→18:02)
[2018-05-26] MEDS: SIMETHICONE 125 MG CHEW TAB PO SCH ×4 (05:46→20:05)
[2018-05-26 05:54] LABS: ALBUMIN 1.7 g/dL (3.4-5.0); ANION GAP 11 mmol/L (5-15); CALCIUM 8.3 mg/dL (8.5-10.1); CHLORIDE 101 mmol/L (98-107)
[2018-05-26 05:56] LABS: CREATININE 5.75 mg/dL (0.7-1.3)
[2018-05-26] MEDS: LACTATED RINGERS 1,000 ML IV SCH ×3 (07:45→20:05)
[2018-05-26 07:50] VITALS: BP 155/100
[2018-05-26] MEDS: FERROUS SULFATE 325 MG TABLET PO SCH (10:18)
[2018-05-26] MEDS: SEVELAMER CARBONATE 800MG TAB PO SCH ×3 (10:19→17:02)
[2018-05-26] MEDS: PANTOPRAZOLE 40 MG IV IVPush SCH (10:19)
[2018-05-26] MEDS: LISINOPRIL 10 MG TABLET PO SCH ×2 (10:19→20:09)
[2018-05-26] MEDS: CALCITRIOL 0.25 MCG CAPSULE PO SCH (10:23)
[2018-05-26] MEDS: MULTIVITS,STRESS FORMULA 1 TABLET PO SCH (10:23)
[2018-05-26] MEDS: HEPARIN 5,000 UNITS/ML, 1ML SQ SCH ×2 (10:23→22:47)
[2018-05-26] MEDS: HEPARIN 5,000 UNITS/ML*10ML IVF SCH (12:30)
[2018-05-26 14:09] VITALS: BP 134/89
[2018-05-26] MEDS ORDERED: FENTANYL PF 100 MCG/2ML ONE (15:32)
[2018-05-26] MEDS ORDERED: NALOXONE 1 MG/ML, 2ML ONE (15:32)
[2018-05-26] MEDS ORDERED: LIDOCAINE-MPF 1%, 5ML ONE (16:04)
[2018-05-26] MEDS: OXYcodone IR 5MG TABLET PO PRN ×2 (17:02→22:47)
[2018-05-26 19:52] VITALS: BP 149/104
[2018-05-27 01:52] VITALS: BP 145/98
[2018-05-27] MEDS: LACTATED RINGERS 1,000 ML IV SCH ×2 (03:21→15:56)
[2018-05-27] MEDS: OXYcodone IR 5MG TABLET PO PRN ×5 (03:24→21:30)
[2018-05-27] MEDS: PIPERACILLIN/TAZO/PMX 2.25GM 50 ML IV SCH ×4 (03:52→23:35)
[2018-05-27 04:59] LABS: MEAN CORPUSCULAR HEMOGLOBIN 30.1 pg (27.5-34.5); MEAN CORPUSCULAR HGB CONC 34.7 g/dL (33.2-36.2); MEAN CORPUSCULAR VOLUME 86.7 fL (81-97); PLATELET COUNT 523 x10^3/uL (130-400); RED BLOOD COUNT 2.72 x10^6/uL (4.38-5.82); RED CELL DISTRIBUTION WIDTH 14.7 % (9.4-14.8)
[2018-05-27 05:04] VITALS: BP 147/94
[2018-05-27] MEDS: CARVEDILOL 3.125 MG TABLET PO SCH ×2 (05:05→17:18)
[2018-05-27 05:19] LABS: ALBUMIN 1.5 g/dL (3.4-5.0); ANION GAP 11 mmol/L (5-15); CALCIUM 8.1 mg/dL (8.5-10.1); CHLORIDE 102 mmol/L (98-107)
[2018-05-27 05:22] LABS: ALANINE AMINOTRANSFERASE 17 U/L (12-78); ALKALINE PHOSPHATASE 70 U/L (45-117); BILIRUBIN,TOTAL 0.5 mg/dL (0.2-1.0); CREATININE 7.86 mg/dL (0.7-1.3); TOTAL PROTEIN 6.3 g/dL (6.4-8.2)
[2018-05-27 05:45] LABS: BASOPHILS # (AUTO) 0.09 x10^3/uL (0-0.1); BASOPHILS % (AUTO) 1 % (0-1); EOSINOPHILS # (AUTO) 0.29 x10^3/uL (0-0.4); EOSINOPHILS % (AUTO) 3 % (1-7); LYMPHOCYTES # (AUTO) 0.92 x10^3/uL (1-3.4); LYMPHOCYTES % (AUTO) 9 % (22-44); MONOCYTES # (AUTO) 0.67 x10^3/uL (0.2-0.8); MONOCYTES % (AUTO) 6 % (2-9); NEUTROPHILS # (AUTO) 8.69 x10^3/uL (1.8-6.8); NEUTROPHILS % (AUTO) 82 % (42-75)
[2018-05-27 05:46] LABS: MD SCAN
[2018-05-27 07:00] VITALS: BP 158/95
[2018-05-27 07:36] VITALS: BP 145/93
[2018-05-27] MEDS: PANTOPRAZOLE 40 MG IV IVPush SCH (08:02)
[2018-05-27] MEDS: FERROUS SULFATE 325 MG TABLET PO SCH (08:02)
[2018-05-27] MEDS: MULTIVITS,STRESS FORMULA 1 TABLET PO SCH (08:02)
[2018-05-27] MEDS: SIMETHICONE 125 MG CHEW TAB PO SCH ×4 (08:02→20:56)
[2018-05-27] MEDS: CALCITRIOL 0.25 MCG CAPSULE PO SCH (08:02)
[2018-05-27] MEDS: HEPARIN 5,000 UNITS/ML, 1ML SQ SCH ×2 (08:02→20:58)
[2018-05-27] MEDS: SEVELAMER CARBONATE 800MG TAB PO SCH ×3 (08:17→17:18)
[2018-05-27] MEDS: LISINOPRIL 10 MG TABLET PO SCH ×2 (13:05→20:58)
[2018-05-27 14:00] VITALS: BP 118/81
[2018-05-27 19:47] VITALS: BP 148/94
[2018-05-28] MEDS: HYDROmorphone PCA 30 MG/30 ML IV PRN (00:18)
[2018-05-28] MEDS: OXYcodone IR 5MG TABLET PO PRN ×6 (01:31→23:17)
[2018-05-28] MEDS: LACTATED RINGERS 1,000 ML IV SCH ×4 (01:32→20:56)
[2018-05-28 01:36] VITALS: BP 154/96
[2018-05-28 05:37] VITALS: BP 148/96
[2018-05-28] MEDS: CARVEDILOL 3.125 MG TABLET PO SCH ×2 (05:38→16:24)
[2018-05-28 06:19] LABS: MEAN CORPUSCULAR HEMOGLOBIN 29.1 pg (27.5-34.5); MEAN CORPUSCULAR HGB CONC 33.4 g/dL (33.2-36.2); MEAN CORPUSCULAR VOLUME 87.2 fL (81-97); MEAN PLATELET VOLUME 7.1 fL (7.4-10.4); PLATELET COUNT 486 x10^3/uL (130-400); RED BLOOD COUNT 2.89 x10^6/uL (4.38-5.82); RED CELL DISTRIBUTION WIDTH 14.6 % (9.4-14.8)
[2018-05-28 06:35] LABS: ALBUMIN 1.7 g/dL (3.4-5.0); CALCIUM 8.2 mg/dL (8.5-10.1); CHLORIDE 100 mmol/L (98-107)
[2018-05-28 06:42] LABS: ALANINE AMINOTRANSFERASE 19 U/L (12-78); ALKALINE PHOSPHATASE 74 U/L (45-117); ANION GAP 11 mmol/L (5-15); BILIRUBIN,TOTAL 0.4 mg/dL (0.2-1.0); CREATININE 6.58 mg/dL (0.7-1.3); TOTAL PROTEIN 6.5 g/dL (6.4-8.2)
[2018-05-28 07:19] LABS: BASOPHILS # (AUTO) 0.04 x10^3/uL (0-0.1); BASOPHILS % (AUTO) 0 % (0-1); EOSINOPHILS # (AUTO) 0.36 x10^3/uL (0-0.4); EOSINOPHILS % (AUTO) 4 % (1-7); LYMPHOCYTES # (AUTO) 0.92 x10^3/uL (1-3.4); LYMPHOCYTES % (AUTO) 9 % (22-44); MD SCAN; MONOCYTES # (AUTO) 0.83 x10^3/uL (0.2-0.8); MONOCYTES % (AUTO) 8 % (2-9); NEUTROPHILS # (AUTO) 7.78 x10^3/uL (1.8-6.8); NEUTROPHILS % (AUTO) 78 % (42-75)
[2018-05-28 07:27] VITALS: BP 144/90
[2018-05-28] MEDS: PIPERACILLIN/TAZO/PMX 2.25GM 50 ML IV SCH ×3 (08:31→23:46)
[2018-05-28] MEDS: HEPARIN 5,000 UNITS/ML, 1ML SQ SCH ×2 (08:49→19:59)
[2018-05-28] MEDS: LISINOPRIL 10 MG TABLET PO SCH ×2 (08:49→19:58)
[2018-05-28] MEDS: FERROUS SULFATE 325 MG TABLET PO SCH (08:50)
[2018-05-28] MEDS: MULTIVITS,STRESS FORMULA 1 TABLET PO SCH (08:50)
[2018-05-28] MEDS: SIMETHICONE 125 MG CHEW TAB PO SCH ×4 (08:50→19:58)
[2018-05-28] MEDS: SEVELAMER CARBONATE 800MG TAB PO SCH ×3 (08:50→16:23)
[2018-05-28] MEDS: PANTOPROZOLE 40MG TABLET PO SCH (08:50)
[2018-05-28] MEDS: CALCITRIOL 0.25 MCG CAPSULE PO SCH (08:50)
[2018-05-28 12:33] VITALS: BP 157/101
[2018-05-28 18:48] VITALS: BP 151/94
[2018-05-29 00:59] VITALS: BP 139/93
[2018-05-29] MEDS: OXYcodone IR 5MG TABLET PO PRN ×5 (03:34→22:02)
[2018-05-29] MEDS: LACTATED RINGERS 1,000 ML IV SCH ×3 (04:02→17:47)
[2018-05-29 06:04] LABS: ANION GAP 11 mmol/L (5-15); CALCIUM 8.6 mg/dL (8.5-10.1); CHLORIDE 100 mmol/L (98-107)
[2018-05-29 06:06] LABS: CREATININE 7.83 mg/dL (0.7-1.3)
[2018-05-29 06:07] LABS: BASOPHILS # (AUTO) 0.05 x10^3/uL (0-0.1); BASOPHILS % (AUTO) 0 % (0-1); EOSINOPHILS # (AUTO) 0.62 x10^3/uL (0-0.4); EOSINOPHILS % (AUTO) 6 % (1-7); LYMPHOCYTES # (AUTO) 0.72 x10^3/uL (1-3.4); LYMPHOCYTES % (AUTO) 7 % (22-44); MD NO; MEAN CORPUSCULAR HGB CONC 34.7 g/dL (33.2-36.2); MEAN CORPUSCULAR VOLUME 86.5 fL (81-97); MEAN PLATELET VOLUME 7.1 fL (7.4-10.4); MONOCYTES # (AUTO) 0.97 x10^3/uL (0.2-0.8); MONOCYTES % (AUTO) 9 % (2-9); NEUTROPHILS # (AUTO) 8.09 x10^3/uL (1.8-6.8); NEUTROPHILS % (AUTO) 78 % (42-75); PLATELET COUNT 438 x10^3/uL (130-400); RED CELL DISTRIBUTION WIDTH 14.6 % (9.4-14.8)
[2018-05-29 06:08] VITALS: BP 146/96
[2018-05-29] MEDS: CARVEDILOL 3.125 MG TABLET PO SCH ×2 (06:09→17:44)
[2018-05-29 07:20] VITALS: BP 156/106
[2018-05-29] MEDS: MULTIVITS,STRESS FORMULA 1 TABLET PO SCH (07:41)
[2018-05-29] MEDS: CALCITRIOL 0.25 MCG CAPSULE PO SCH (07:41)
[2018-05-29] MEDS: PANTOPROZOLE 40MG TABLET PO SCH (07:42)
[2018-05-29] MEDS: FERROUS SULFATE 325 MG TABLET PO SCH (07:42)
[2018-05-29] MEDS: SEVELAMER CARBONATE 800MG TAB PO SCH ×3 (07:42→17:43)
[2018-05-29] MEDS: SIMETHICONE 125 MG CHEW TAB PO SCH ×4 (07:42→20:32)
[2018-05-29] MEDS: HEPARIN 5,000 UNITS/ML, 1ML SQ SCH ×2 (07:42→20:32)
[2018-05-29] MEDS: PIPERACILLIN/TAZO/PMX 2.25GM 50 ML IV SCH ×3 (07:43→23:43)
[2018-05-29] MEDS: HEPARIN 5,000 UNITS/ML*10ML IVF SCH (12:30)
[2018-05-29] MEDS: LISINOPRIL 10 MG TABLET PO SCH ×2 (13:38→20:32)
[2018-05-29 13:52] VITALS: BP 152/98
[2018-05-29] MEDS: DARBEPOETIN 60 MCG/ML SQ SCH (18:28)
[2018-05-29 19:29] VITALS: BP 145/98
[2018-05-30] MEDS: LACTATED RINGERS 1,000 ML IV SCH ×4 (00:26→23:53)
[2018-05-30 01:53] VITALS: BP 155/105
[2018-05-30] MEDS: OXYcodone IR 5MG TABLET PO PRN ×5 (02:05→21:47)
[2018-05-30 06:18] LABS: BASOPHILS # (AUTO) 0.03 x10^3/uL (0-0.1); BASOPHILS % (AUTO) 0 % (0-1); EOSINOPHILS # (AUTO) 0.43 x10^3/uL (0-0.4); EOSINOPHILS % (AUTO) 5 % (1-7); LYMPHOCYTES # (AUTO) 0.89 x10^3/uL (1-3.4); LYMPHOCYTES % (AUTO) 9 % (22-44); MD NO; MEAN CORPUSCULAR HEMOGLOBIN 29.8 pg (27.5-34.5); MEAN CORPUSCULAR HGB CONC 34.3 g/dL (33.2-36.2); MEAN CORPUSCULAR VOLUME 86.8 fL (81-97); MEAN PLATELET VOLUME 6.8 fL (7.4-10.4); MONOCYTES # (AUTO) 0.95 x10^3/uL (0.2-0.8); MONOCYTES % (AUTO) 10 % (2-9); NEUTROPHILS # (AUTO) 7.26 x10^3/uL (1.8-6.8); NEUTROPHILS % (AUTO) 76 % (42-75); PLATELET COUNT 425 x10^3/uL (130-400); RED BLOOD COUNT 2.79 x10^6/uL (4.38-5.82); RED CELL DISTRIBUTION WIDTH 14.3 % (9.4-14.8)
[2018-05-30 06:19] VITALS: BP 154/93
[2018-05-30] MEDS: CARVEDILOL 3.125 MG TABLET PO SCH ×2 (06:22→17:34)
[2018-05-30 06:28] LABS: ANION GAP 10 mmol/L (5-15); CALCIUM 8.4 mg/dL (8.5-10.1); CHLORIDE 101 mmol/L (98-107)
[2018-05-30 06:29] LABS: CREATININE 5.72 mg/dL (0.7-1.3)
[2018-05-30 08:16] VITALS: BP 158/95
[2018-05-30] MEDS: PIPERACILLIN/TAZO/PMX 2.25GM 50 ML IV SCH (08:18)
[2018-05-30] MEDS: SEVELAMER CARBONATE 800MG TAB PO SCH ×3 (08:18→17:33)
[2018-05-30] MEDS: FERROUS SULFATE 325 MG TABLET PO SCH (08:18)
[2018-05-30] MEDS: CALCITRIOL 0.25 MCG CAPSULE PO SCH (08:18)
[2018-05-30] MEDS: SIMETHICONE 125 MG CHEW TAB PO SCH ×4 (08:18→21:47)
[2018-05-30] MEDS: MULTIVITS,STRESS FORMULA 1 TABLET PO SCH (08:18)
[2018-05-30] MEDS: PANTOPROZOLE 40MG TABLET PO SCH (08:18)
[2018-05-30] MEDS: HEPARIN 5,000 UNITS/ML, 1ML SQ SCH ×2 (08:19→21:47)
[2018-05-30] MEDS: LISINOPRIL 10 MG TABLET PO SCH ×2 (08:19→21:48)
[2018-05-30 12:21] VITALS: BP 155/98
[2018-05-30] MEDS ORDERED: PIPERACILLIN/TAZO 2.25 GM in SODIUM CHLORIDE 0.9% 50 ML IV SCH (15:30)
[2018-05-30 20:00] VITALS: BP 158/96
[2018-05-30] MEDS: PIPERACILLIN/TAZO 2.25 GM in DEXTROSE 5% 50 ML IV SCH (23:53)
[2018-05-31 00:31] VITALS: BP 148/96
[2018-05-31] MEDS: OXYcodone IR 5MG TABLET PO PRN ×6 (01:56→23:02)
[2018-05-31] MEDS: CARVEDILOL 3.125 MG TABLET PO SCH ×2 (05:45→18:03)
[2018-05-31] MEDS: LACTATED RINGERS 1,000 ML IV SCH ×3 (06:23→23:02)
[2018-05-31 06:42] LABS: BASOPHILS # (AUTO) 0.05 x10^3/uL (0-0.1); BASOPHILS % (AUTO) 1 % (0-1); EOSINOPHILS # (AUTO) 0.29 x10^3/uL (0-0.4); EOSINOPHILS % (AUTO) 4 % (1-7); LYMPHOCYTES # (AUTO) 0.85 x10^3/uL (1-3.4); LYMPHOCYTES % (AUTO) 10 % (22-44); MD NO; MEAN CORPUSCULAR HEMOGLOBIN 29.1 pg (27.5-34.5); MEAN CORPUSCULAR HGB CONC 33.8 g/dL (33.2-36.2); MEAN CORPUSCULAR VOLUME 86.2 fL (81-97); MEAN PLATELET VOLUME 7.1 fL (7.4-10.4); MONOCYTES # (AUTO) 0.84 x10^3/uL (0.2-0.8); MONOCYTES % (AUTO) 10 % (2-9); NEUTROPHILS # (AUTO) 6.22 x10^3/uL (1.8-6.8); NEUTROPHILS % (AUTO) 75 % (42-75); PLATELET COUNT 376 x10^3/uL (130-400); RED BLOOD COUNT 2.72 x10^6/uL (4.38-5.82); RED CELL DISTRIBUTION WIDTH 14.4 % (9.4-14.8)
[2018-05-31 06:54] VITALS: BP 154/95
[2018-05-31 06:55] LABS: ANION GAP 11 mmol/L (5-15); CALCIUM 8.4 mg/dL (8.5-10.1); CHLORIDE 101 mmol/L (98-107); CREATININE 7.21 mg/dL (0.7-1.3)
[2018-05-31] MEDS: SEVELAMER CARBONATE 800MG TAB PO SCH ×3 (08:42→18:03)
[2018-05-31] MEDS: FERROUS SULFATE 325 MG TABLET PO SCH (08:42)
[2018-05-31] MEDS: SIMETHICONE 125 MG CHEW TAB PO SCH ×4 (08:42→20:34)
[2018-05-31] MEDS: CALCITRIOL 0.25 MCG CAPSULE PO SCH (08:42)
[2018-05-31] MEDS: PANTOPROZOLE 40MG TABLET PO SCH (08:42)
[2018-05-31] MEDS: MULTIVITS,STRESS FORMULA 1 TABLET PO SCH (08:42)
[2018-05-31] MEDS: PIPERACILLIN/TAZO 2.25 GM in DEXTROSE 5% 50 ML IV SCH ×3 (08:42→23:09)
[2018-05-31] MEDS: HEPARIN 5,000 UNITS/ML, 1ML SQ SCH ×2 (08:43→20:35)
[2018-05-31] MEDS: LISINOPRIL 10 MG TABLET PO SCH ×2 (08:44→20:34)
[2018-05-31] MEDS: ERGOCALCIFEROL 50,000 UNIT CAPSULE PO SCH (10:58)
[2018-05-31 13:11] VITALS: BP 158/99
[2018-05-31] MEDS: hydrALAzine 20 MG/ML, 1ML IV PRN (19:31)
[2018-05-31 20:55] VITALS: BP 163/103
[2018-05-31] MEDS: ALBUTEROL SULFATE 2.5 MG/3 ML NPPB SCH (21:00)
[2018-06-01] MEDS: OXYcodone IR 5MG TABLET PO PRN ×5 (03:16→22:08)
[2018-06-01 04:00] VITALS: BP 168/97
[2018-06-01] MEDS: HYDROmorphone PCA 30 MG/30 ML IV PRN (05:35)
[2018-06-01] MEDS: CARVEDILOL 3.125 MG TABLET PO SCH (05:37)
[2018-06-01] MEDS: LACTATED RINGERS 1,000 ML IV SCH ×2 (05:37→13:01)
[2018-06-01 06:58] LABS: BASOPHILS # (AUTO) 0.04 x10^3/uL (0-0.1); BASOPHILS % (AUTO) 1 % (0-1); EOSINOPHILS # (AUTO) 0.37 x10^3/uL (0-0.4); EOSINOPHILS % (AUTO) 5 % (1-7); LYMPHOCYTES # (AUTO) 0.89 x10^3/uL (1-3.4); LYMPHOCYTES % (AUTO) 11 % (22-44); MD NO; MEAN CORPUSCULAR HEMOGLOBIN 29.2 pg (27.5-34.5); MEAN CORPUSCULAR HGB CONC 33.7 g/dL (33.2-36.2); MEAN CORPUSCULAR VOLUME 86.8 fL (81-97); MEAN PLATELET VOLUME 7.1 fL (7.4-10.4); MONOCYTES % (AUTO) 10 % (2-9); NEUTROPHILS # (AUTO) 5.83 x10^3/uL (1.8-6.8); NEUTROPHILS % (AUTO) 74 % (42-75); PLATELET COUNT 351 x10^3/uL (130-400); RED BLOOD COUNT 2.78 x10^6/uL (4.38-5.82); RED CELL DISTRIBUTION WIDTH 14.5 % (9.4-14.8)
[2018-06-01 07:11] LABS: ALBUMIN 1.7 g/dL (3.4-5.0); ANION GAP 10 mmol/L (5-15); CALCIUM 8.6 mg/dL (8.5-10.1); CHLORIDE 103 mmol/L (98-107)
[2018-06-01 07:15] LABS: ALANINE AMINOTRANSFERASE 38 U/L (12-78); ALKALINE PHOSPHATASE 61 U/L (45-117); BILIRUBIN,TOTAL 0.5 mg/dL (0.2-1.0); CREATININE 8.05 mg/dL (0.7-1.3); TOTAL PROTEIN 6.5 g/dL (6.4-8.2)
[2018-06-01] MEDS: MULTIVITS,STRESS FORMULA 1 TABLET PO SCH (07:55)
[2018-06-01] MEDS: SEVELAMER CARBONATE 800MG TAB PO SCH ×3 (07:55→16:34)
[2018-06-01] MEDS: FERROUS SULFATE 325 MG TABLET PO SCH (07:55)
[2018-06-01] MEDS: SIMETHICONE 125 MG CHEW TAB PO SCH ×4 (07:55→22:07)
[2018-06-01] MEDS: LISINOPRIL 10 MG TABLET PO SCH ×2 (07:55→22:10)
[2018-06-01] MEDS: PIPERACILLIN/TAZO 2.25 GM in DEXTROSE 5% 50 ML IV SCH ×2 (07:55→15:53)
[2018-06-01] MEDS: CALCITRIOL 0.25 MCG CAPSULE PO SCH (07:56)
[2018-06-01] MEDS: HEPARIN 5,000 UNITS/ML, 1ML SQ SCH ×2 (07:56→22:07)
[2018-06-01] MEDS: PANTOPROZOLE 40MG TABLET PO SCH (07:56)
[2018-06-01 08:05] VITALS: BP 172/116
[2018-06-01] MEDS: ALBUTEROL SULFATE 2.5 MG/3 ML NPPB SCH ×3 (09:00→19:50)
[2018-06-01] MEDS: HEPARIN 5,000 UNITS/ML*10ML IVF SCH (12:30)
[2018-06-01 13:50] VITALS: BP 166/106
[2018-06-01] MEDS: hydrALAzine 20 MG/ML, 1ML IV PRN (13:51)
[2018-06-01 14:44] VITALS: BP 144/88
[2018-06-01] MEDS: PIPERACILLIN/TAZO 0.75 GM in SODIUM CHLORIDE 0.9% 50 ML IV SCH (16:34)
[2018-06-01] MEDS: CARVEDILOL 6.25 MG TABLET PO SCH (17:07)
[2018-06-01 19:24] VITALS: BP 156/106
[2018-06-02] VITALS (13 sets, daily range): BP systolic 141–174; BP diastolic 91–112
[2018-06-02] MEDS: PIPERACILLIN/TAZO 2.25 GM in DEXTROSE 5% 50 ML IV SCH ×3 (00:32→15:16)
[2018-06-02] MEDS: OXYcodone IR 5MG TABLET PO PRN ×5 (02:43→19:50)
[2018-06-02] MEDS: CARVEDILOL 6.25 MG TABLET PO SCH ×2 (05:37→17:03)
[2018-06-02 06:10] LABS: BASOPHILS # (AUTO) 0.05 x10^3/uL (0-0.1); BASOPHILS % (AUTO) 1 % (0-1); EOSINOPHILS # (AUTO) 0.41 x10^3/uL (0-0.4); EOSINOPHILS % (AUTO) 5 % (1-7); LYMPHOCYTES # (AUTO) 0.92 x10^3/uL (1-3.4); LYMPHOCYTES % (AUTO) 12 % (22-44); MD NO; MEAN CORPUSCULAR HEMOGLOBIN 29.3 pg (27.5-34.5); MEAN CORPUSCULAR HGB CONC 33.9 g/dL (33.2-36.2); MEAN CORPUSCULAR VOLUME 86.5 fL (81-97); MEAN PLATELET VOLUME 6.9 fL (7.4-10.4); MONOCYTES # (AUTO) 0.76 x10^3/uL (0.2-0.8); MONOCYTES % (AUTO) 10 % (2-9); NEUTROPHILS # (AUTO) 5.44 x10^3/uL (1.8-6.8); NEUTROPHILS % (AUTO) 72 % (42-75); PLATELET COUNT 347 x10^3/uL (130-400); RED CELL DISTRIBUTION WIDTH 14.4 % (9.4-14.8)
[2018-06-02 06:19] LABS: CHLORIDE 102 mmol/L (98-107)
[2018-06-02 06:25] LABS: ALANINE AMINOTRANSFERASE 44 U/L (12-78); ALBUMIN 1.9 g/dL (3.4-5.0); ALKALINE PHOSPHATASE 62 U/L (45-117); ANION GAP 8 mmol/L (5-15); BILIRUBIN,TOTAL 0.2 mg/dL (0.2-1.0); CALCIUM 8.5 mg/dL (8.5-10.1); CREATININE 6.27 mg/dL (0.7-1.3); TOTAL PROTEIN 6.9 g/dL (6.4-8.2)
[2018-06-02] MEDS: SIMETHICONE 125 MG CHEW TAB PO SCH ×4 (07:52→19:50)
[2018-06-02] MEDS: CALCITRIOL 0.25 MCG CAPSULE PO SCH (07:52)
[2018-06-02] MEDS: SEVELAMER CARBONATE 800MG TAB PO SCH ×3 (07:52→15:16)
[2018-06-02] MEDS: PANTOPROZOLE 40MG TABLET PO SCH (07:52)
[2018-06-02] MEDS: LISINOPRIL 10 MG TABLET PO SCH ×2 (07:53→19:50)
[2018-06-02] MEDS: FERROUS SULFATE 325 MG TABLET PO SCH (07:53)
[2018-06-02] MEDS: MULTIVITS,STRESS FORMULA 1 TABLET PO SCH (07:53)
[2018-06-02] MEDS: HEPARIN 5,000 UNITS/ML, 1ML SQ SCH ×2 (07:54→19:49)
[2018-06-02] MEDS: ALBUTEROL SULFATE 2.5 MG/3 ML NPPB SCH ×2 (09:00→19:33)
[2018-06-02] MEDS ORDERED: OMNIPAQUE 350 MG/ML, 150 ML BOTTLE ONE (09:43)
[2018-06-02] MEDS: hydrALAzine 20 MG/ML, 1ML IV PRN ×3 (14:04→21:55)
[2018-06-02] MEDS: LORazepam 0.5MG TABLET PO PRN (20:20)
[2018-06-03] MEDS: OXYcodone IR 5MG TABLET PO PRN ×6 (00:14→21:13)
[2018-06-03] MEDS: PIPERACILLIN/TAZO 2.25 GM in DEXTROSE 5% 50 ML IV SCH ×3 (00:15→16:13)
[2018-06-03 01:30] VITALS: BP 137/84
[2018-06-03] MEDS: CARVEDILOL 6.25 MG TABLET PO SCH ×2 (05:42→17:23)
[2018-06-03 06:15] LABS: ALBUMIN 1.9 g/dL (3.4-5.0); ANION GAP 11 mmol/L (5-15); CALCIUM 8.5 mg/dL (8.5-10.1); CHLORIDE 104 mmol/L (98-107)
[2018-06-03 06:18] LABS: ALANINE AMINOTRANSFERASE 49 U/L (12-78); ALKALINE PHOSPHATASE 63 U/L (45-117); BILIRUBIN,TOTAL 0.2 mg/dL (0.2-1.0); CREATININE 7.69 mg/dL (0.7-1.3)
[2018-06-03 06:42] LABS: BASOPHILS # (AUTO) 0.06 x10^3/uL (0-0.1); BASOPHILS % (AUTO) 1 % (0-1); EOSINOPHILS # (AUTO) 0.27 x10^3/uL (0-0.4); EOSINOPHILS % (AUTO) 3 % (1-7); LYMPHOCYTES # (AUTO) 0.94 x10^3/uL (1-3.4); LYMPHOCYTES % (AUTO) 12 % (22-44); MD NO; MEAN CORPUSCULAR HEMOGLOBIN 28.9 pg (27.5-34.5); MEAN CORPUSCULAR HGB CONC 33.8 g/dL (33.2-36.2); MEAN CORPUSCULAR VOLUME 85.3 fL (81-97); MEAN PLATELET VOLUME 5.9 fL (7.4-10.4); MONOCYTES # (AUTO) 0.69 x10^3/uL (0.2-0.8); MONOCYTES % (AUTO) 9 % (2-9); NEUTROPHILS # (AUTO) 6.08 x10^3/uL (1.8-6.8); NEUTROPHILS % (AUTO) 76 % (42-75); PLATELET COUNT 370 x10^3/uL (130-400); RED BLOOD COUNT 2.91 x10^6/uL (4.38-5.82); RED CELL DISTRIBUTION WIDTH 14.4 % (9.4-14.8)
[2018-06-03] MEDS: SIMETHICONE 125 MG CHEW TAB PO SCH ×5 (07:00→21:14)
[2018-06-03 07:40] VITALS: BP 172/105
[2018-06-03] MEDS: ALBUTEROL SULFATE 2.5 MG/3 ML NPPB SCH ×2 (07:56→21:25)
[2018-06-03] MEDS: PANTOPROZOLE 40MG TABLET PO SCH (08:28)
[2018-06-03] MEDS: SEVELAMER CARBONATE 800MG TAB PO SCH ×3 (08:28→17:00)
[2018-06-03] MEDS: CALCITRIOL 0.25 MCG CAPSULE PO SCH (08:28)
[2018-06-03] MEDS: MULTIVITS,STRESS FORMULA 1 TABLET PO SCH (08:29)
[2018-06-03] MEDS: HEPARIN 5,000 UNITS/ML, 1ML SQ SCH ×2 (08:29→21:12)
[2018-06-03] MEDS: LISINOPRIL 10 MG TABLET PO SCH ×2 (08:29→21:00)
[2018-06-03] MEDS: FERROUS SULFATE 325 MG TABLET PO SCH (08:45)
[2018-06-03 16:10] VITALS: BP 166/93
[2018-06-03] MEDS: hydrALAzine 20 MG/ML, 1ML IV PRN (16:12)
[2018-06-03] MEDS ORDERED: CATHFLO-ALTEPLASE 2 MG/2 ML CATHFLUSH ONE (16:30)
[2018-06-03 17:00] VITALS: BP 154/90
[2018-06-03 18:27] VITALS: BP 152/84
[2018-06-03 19:44] VITALS: BP 149/84
[2018-06-03] MEDS: ONDANSETRON 2MG/ML, 2ML IVPush PRN (21:12)
[2018-06-04 00:56] VITALS: BP 129/68
[2018-06-04] MEDS: OXYcodone IR 5MG TABLET PO PRN ×5 (01:04→19:02)
[2018-06-04] MEDS: PIPERACILLIN/TAZO 2.25 GM in DEXTROSE 5% 50 ML IV SCH ×3 (01:04→16:59)
[2018-06-04] MEDS: CARVEDILOL 6.25 MG TABLET PO SCH ×2 (05:44→16:59)
[2018-06-04 05:52] LABS: BASOPHILS # (AUTO) 0.09 x10^3/uL (0-0.1); BASOPHILS % (AUTO) 1 % (0-1); EOSINOPHILS # (AUTO) 0.28 x10^3/uL (0-0.4); EOSINOPHILS % (AUTO) 3 % (1-7); LYMPHOCYTES # (AUTO) 1.17 x10^3/uL (1-3.4); LYMPHOCYTES % (AUTO) 13 % (22-44); MD NO; MEAN CORPUSCULAR HEMOGLOBIN 28.9 pg (27.5-34.5); MEAN CORPUSCULAR HGB CONC 33.4 g/dL (33.2-36.2); MEAN CORPUSCULAR VOLUME 86.4 fL (81-97); MEAN PLATELET VOLUME 6.5 fL (7.4-10.4); MONOCYTES # (AUTO) 0.85 x10^3/uL (0.2-0.8); MONOCYTES % (AUTO) 9 % (2-9); NEUTROPHILS # (AUTO) 6.64 x10^3/uL (1.8-6.8); NEUTROPHILS % (AUTO) 74 % (42-75); PLATELET COUNT 333 x10^3/uL (130-400); RED BLOOD COUNT 2.92 x10^6/uL (4.38-5.82); RED CELL DISTRIBUTION WIDTH 14.1 % (9.4-14.8)
[2018-06-04 06:03] LABS: CHLORIDE 103 mmol/L (98-107)
[2018-06-04 06:10] LABS: ALANINE AMINOTRANSFERASE 49 U/L (12-78); ALKALINE PHOSPHATASE 68 U/L (45-117); ANION GAP 10 mmol/L (5-15); BILIRUBIN,TOTAL 0.3 mg/dL (0.2-1.0); CALCIUM 8.7 mg/dL (8.5-10.1); CREATININE 6.28 mg/dL (0.7-1.3); TOTAL PROTEIN 7.1 g/dL (6.4-8.2)
[2018-06-04 08:03] VITALS: BP 133/90
[2018-06-04] MEDS: PANTOPROZOLE 40MG TABLET PO SCH (08:32)
[2018-06-04] MEDS: FERROUS SULFATE 325 MG TABLET PO SCH (08:32)
[2018-06-04] MEDS: CALCITRIOL 0.25 MCG CAPSULE PO SCH (08:32)
[2018-06-04] MEDS: MULTIVITS,STRESS FORMULA 1 TABLET PO SCH (08:32)
[2018-06-04] MEDS: SEVELAMER CARBONATE 800MG TAB PO SCH ×3 (08:32→16:58)
[2018-06-04] MEDS: SIMETHICONE 125 MG CHEW TAB PO SCH ×4 (08:33→21:45)
[2018-06-04] MEDS: HEPARIN 5,000 UNITS/ML, 1ML SQ SCH ×2 (08:33→21:45)
[2018-06-04] MEDS: LISINOPRIL 10 MG TABLET PO SCH ×2 (08:34→21:00)
[2018-06-04] MEDS: ALBUTEROL SULFATE 2.5 MG/3 ML NPPB SCH ×2 (09:00→20:38)
[2018-06-04] MEDS: HEPARIN 5,000 UNITS/ML*10ML IVF SCH (12:17)
[2018-06-04 14:21] VITALS: BP 130/87
[2018-06-04 14:38] VITALS: BP 126/84
[2018-06-04 18:47] VITALS: BP 134/79
[2018-06-05] MEDS: OXYcodone IR 5MG TABLET PO PRN ×6 (00:19→22:35)
[2018-06-05] MEDS: PIPERACILLIN/TAZO 2.25 GM in DEXTROSE 5% 50 ML IV SCH ×3 (00:19→17:24)
[2018-06-05 01:47] VITALS: BP 127/78
[2018-06-05] MEDS: CARVEDILOL 6.25 MG TABLET PO SCH ×2 (05:17→17:25)
[2018-06-05 05:32] LABS: BASOPHILS # (AUTO) 0.07 x10^3/uL (0-0.1); BASOPHILS % (AUTO) 1 % (0-1); EOSINOPHILS % (AUTO) 6 % (1-7); LYMPHOCYTES # (AUTO) 1.08 x10^3/uL (1-3.4); LYMPHOCYTES % (AUTO) 14 % (22-44); MD NO; MEAN CORPUSCULAR HGB CONC 34.6 g/dL (33.2-36.2); MEAN CORPUSCULAR VOLUME 86.6 fL (81-97); MEAN PLATELET VOLUME 6.9 fL (7.4-10.4); MONOCYTES # (AUTO) 0.66 x10^3/uL (0.2-0.8); MONOCYTES % (AUTO) 9 % (2-9); NEUTROPHILS # (AUTO) 5.47 x10^3/uL (1.8-6.8); NEUTROPHILS % (AUTO) 70 % (42-75); PLATELET COUNT 332 x10^3/uL (130-400); RED CELL DISTRIBUTION WIDTH 14.5 % (9.4-14.8)
[2018-06-05 05:44] LABS: ANION GAP 11 mmol/L (5-15); CHLORIDE 103 mmol/L (98-107)
[2018-06-05 05:47] LABS: ALANINE AMINOTRANSFERASE 49 U/L (12-78); ALKALINE PHOSPHATASE 62 U/L (45-117); BILIRUBIN,TOTAL 0.5 mg/dL (0.2-1.0)
[2018-06-05 07:55] VITALS: BP 123/82
[2018-06-05] MEDS: SEVELAMER CARBONATE 800MG TAB PO SCH ×3 (08:00→17:24)
[2018-06-05] MEDS: LISINOPRIL 10 MG TABLET PO SCH ×2 (09:00→21:00)
[2018-06-05] MEDS: HEPARIN 5,000 UNITS/ML, 1ML SQ SCH ×2 (09:03→22:35)
[2018-06-05] MEDS: MULTIVITS,STRESS FORMULA 1 TABLET PO SCH (09:03)
[2018-06-05] MEDS: FERROUS SULFATE 325 MG TABLET PO SCH (09:04)
[2018-06-05] MEDS: SIMETHICONE 125 MG CHEW TAB PO SCH ×4 (09:04→22:35)
[2018-06-05] MEDS: CALCITRIOL 0.25 MCG CAPSULE PO SCH (09:04)
[2018-06-05] MEDS: PANTOPROZOLE 40MG TABLET PO SCH (09:04)
[2018-06-05] MEDS ORDERED: FENTANYL PF 100 MCG/2ML ONE (12:08)
[2018-06-05] MEDS ORDERED: MIDAZOLAM 1 MG/ML, 5ML ONE (12:53)
[2018-06-05 14:24] VITALS: BP 117/76
[2018-06-05] MEDS ORDERED: ALBUTEROL SULFATE 2.5 MG/3 ML NPPB PRN (15:30)
[2018-06-05] MEDS: PIPERACILLIN/TAZO 0.75 GM in SODIUM CHLORIDE 0.9% 50 ML IV SCH (17:24)
[2018-06-05] MEDS: DARBEPOETIN 60 MCG/ML SQ SCH (18:28)
[2018-06-05] MEDS ORDERED: ARANESP 60 MCG/ML **ESRD SQ ONE ×2 (18:30)
[2018-06-05 20:09] VITALS: BP 93/62
[2018-06-05 22:38] VITALS: BP 110/75
[2018-06-06] VITALS (7 sets, daily range): BP systolic 116–135; BP diastolic 76–92
[2018-06-06] MEDS: PIPERACILLIN/TAZO 2.25 GM in DEXTROSE 5% 50 ML IV SCH ×3 (02:00→17:52)
[2018-06-06] MEDS: OXYcodone IR 5MG TABLET PO PRN ×5 (03:00→22:01)
[2018-06-06 05:51] LABS: BASOPHILS # (AUTO) 0.13 x10^3/uL (0-0.1); BASOPHILS % (AUTO) 2 % (0-1); EOSINOPHILS # (AUTO) 0.51 x10^3/uL (0-0.4); EOSINOPHILS % (AUTO) 6 % (1-7); LYMPHOCYTES # (AUTO) 1.24 x10^3/uL (1-3.4); LYMPHOCYTES % (AUTO) 15 % (22-44); MD NO; MEAN CORPUSCULAR HEMOGLOBIN 29.2 pg (27.5-34.5); MEAN CORPUSCULAR VOLUME 85.7 fL (81-97); MEAN PLATELET VOLUME 6.6 fL (7.4-10.4); MONOCYTES # (AUTO) 0.76 x10^3/uL (0.2-0.8); MONOCYTES % (AUTO) 9 % (2-9); NEUTROPHILS # (AUTO) 5.47 x10^3/uL (1.8-6.8); NEUTROPHILS % (AUTO) 68 % (42-75); PLATELET COUNT 335 x10^3/uL (130-400); RED BLOOD COUNT 2.85 x10^6/uL (4.38-5.82); RED CELL DISTRIBUTION WIDTH 14.5 % (9.4-14.8)
[2018-06-06] MEDS: CARVEDILOL 6.25 MG TABLET PO SCH ×2 (05:53→17:52)
[2018-06-06 06:08] LABS: CHLORIDE 100 mmol/L (98-107)
[2018-06-06 06:26] LABS: CREATININE 6.28 mg/dL (0.7-1.3)
[2018-06-06 07:01] LABS: ANION GAP 9 mmol/L (5-15)
[2018-06-06] MEDS: MULTIVITS,STRESS FORMULA 1 TABLET PO SCH (08:32)
[2018-06-06] MEDS: SIMETHICONE 125 MG CHEW TAB PO SCH ×4 (08:32→21:20)
[2018-06-06] MEDS: FERROUS SULFATE 325 MG TABLET PO SCH (08:32)
[2018-06-06] MEDS: SEVELAMER CARBONATE 800MG TAB PO SCH ×3 (08:32→16:43)
[2018-06-06] MEDS: CALCITRIOL 0.25 MCG CAPSULE PO SCH (08:32)
[2018-06-06] MEDS: PANTOPROZOLE 40MG TABLET PO SCH (08:33)
[2018-06-06] MEDS: HEPARIN 5,000 UNITS/ML, 1ML SQ SCH ×2 (08:33→21:20)
[2018-06-06] MEDS: LISINOPRIL 10 MG TABLET PO SCH ×2 (08:33→21:20)
[2018-06-07] VITALS (7 sets, daily range): BP systolic 115–126; BP diastolic 75–88
[2018-06-07] MEDS: PIPERACILLIN/TAZO 2.25 GM in DEXTROSE 5% 50 ML IV SCH ×3 (01:36→17:54)
[2018-06-07] MEDS: OXYcodone IR 5MG TABLET PO PRN ×5 (02:05→23:17)
[2018-06-07 06:09] LABS: BASOPHILS # (AUTO) 0.12 x10^3/uL (0-0.1); BASOPHILS % (AUTO) 2 % (0-1); EOSINOPHILS # (AUTO) 0.48 x10^3/uL (0-0.4); EOSINOPHILS % (AUTO) 7 % (1-7); LYMPHOCYTES # (AUTO) 0.98 x10^3/uL (1-3.4); LYMPHOCYTES % (AUTO) 15 % (22-44); MD NO; MEAN CORPUSCULAR HEMOGLOBIN 29.4 pg (27.5-34.5); MEAN CORPUSCULAR HGB CONC 34.3 g/dL (33.2-36.2); MEAN CORPUSCULAR VOLUME 85.6 fL (81-97); MEAN PLATELET VOLUME 6.6 fL (7.4-10.4); MONOCYTES # (AUTO) 0.66 x10^3/uL (0.2-0.8); MONOCYTES % (AUTO) 10 % (2-9); NEUTROPHILS # (AUTO) 4.39 x10^3/uL (1.8-6.8); NEUTROPHILS % (AUTO) 66 % (42-75); PLATELET COUNT 328 x10^3/uL (130-400); RED BLOOD COUNT 2.87 x10^6/uL (4.38-5.82); RED CELL DISTRIBUTION WIDTH 14.7 % (9.4-14.8)
[2018-06-07] MEDS: CARVEDILOL 6.25 MG TABLET PO SCH ×2 (06:16→17:54)
[2018-06-07 06:27] LABS: ALANINE AMINOTRANSFERASE 63 U/L (12-78); ALBUMIN 2.2 g/dL (3.4-5.0); ANION GAP 10 mmol/L (5-15); CALCIUM 9.3 mg/dL (8.5-10.1); CHLORIDE 99 mmol/L (98-107); CREATININE 8.32 mg/dL (0.7-1.3)
[2018-06-07 06:49] LABS: ALKALINE PHOSPHATASE 79 U/L (45-117); BILIRUBIN,TOTAL 0.4 mg/dL (0.2-1.0); TOTAL PROTEIN 7.6 g/dL (6.4-8.2)
[2018-06-07] MEDS: CALCITRIOL 0.25 MCG CAPSULE PO SCH (08:12)
[2018-06-07] MEDS: SIMETHICONE 125 MG CHEW TAB PO SCH ×4 (08:13→21:11)
[2018-06-07] MEDS: SEVELAMER CARBONATE 800MG TAB PO SCH ×3 (08:13→16:51)
[2018-06-07] MEDS: HEPARIN 5,000 UNITS/ML, 1ML SQ SCH ×2 (08:13→21:11)
[2018-06-07] MEDS: MULTIVITS,STRESS FORMULA 1 TABLET PO SCH (08:13)
[2018-06-07] MEDS: LISINOPRIL 10 MG TABLET PO SCH ×2 (08:13→21:12)
[2018-06-07] MEDS: FERROUS SULFATE 325 MG TABLET PO SCH (08:13)
[2018-06-07] MEDS: ERGOCALCIFEROL 50,000 UNIT CAPSULE PO SCH (08:13)
[2018-06-07] MEDS: PANTOPROZOLE 40MG TABLET PO SCH (08:13)
[2018-06-07] MEDS: ONDANSETRON 2MG/ML, 2ML IVPush PRN ×2 (09:18→17:53)
[2018-06-07] MEDS: HEPARIN 5,000 UNITS/ML*10ML IVF SCH (14:17)
[2018-06-07] MEDS: POLYETHYLENE GLYCOL 17 GM PACKET PO PRN (16:51)
[2018-06-08] VITALS (7 sets, daily range): BP systolic 96–120; BP diastolic 61–79
[2018-06-08] MEDS: PIPERACILLIN/TAZO 2.25 GM in DEXTROSE 5% 50 ML IV SCH ×3 (01:33→16:54)
[2018-06-08] MEDS: OXYcodone IR 5MG TABLET PO PRN ×5 (03:18→23:22)
[2018-06-08] MEDS: CARVEDILOL 6.25 MG TABLET PO SCH ×2 (05:11→18:30)
[2018-06-08] MEDS: SEVELAMER CARBONATE 800MG TAB PO SCH ×3 (08:28→16:55)
[2018-06-08] MEDS: FERROUS SULFATE 325 MG TABLET PO SCH (08:28)
[2018-06-08] MEDS: PANTOPROZOLE 40MG TABLET PO SCH (08:28)
[2018-06-08] MEDS: SIMETHICONE 125 MG CHEW TAB PO SCH ×4 (08:28→21:37)
[2018-06-08] MEDS: LISINOPRIL 10 MG TABLET PO SCH ×2 (08:28→21:38)
[2018-06-08] MEDS: CALCITRIOL 0.25 MCG CAPSULE PO SCH (08:28)
[2018-06-08] MEDS: MULTIVITS,STRESS FORMULA 1 TABLET PO SCH (08:28)
[2018-06-08] MEDS: HEPARIN 5,000 UNITS/ML, 1ML SQ SCH ×2 (08:28→21:38)
[2018-06-08] MEDS: ONDANSETRON 2MG/ML, 2ML IVPush PRN ×2 (10:03→18:30)
[2018-06-09] VITALS (8 sets, daily range): BP systolic 87–120; BP diastolic 51–79
[2018-06-09] MEDS: PIPERACILLIN/TAZO 2.25 GM in DEXTROSE 5% 50 ML IV SCH ×3 (01:38→17:05)
[2018-06-09] MEDS: OXYcodone IR 5MG TABLET PO PRN ×5 (03:56→21:54)
[2018-06-09 05:01] LABS: BASOPHILS # (AUTO) 0.09 x10^3/uL (0-0.1); BASOPHILS % (AUTO) 1 % (0-1); EOSINOPHILS # (AUTO) 0.47 x10^3/uL (0-0.4); EOSINOPHILS % (AUTO) 7 % (1-7); HCT (SEDRATE) 26.4 % (39.2-51.8); LYMPHOCYTES # (AUTO) 1.26 x10^3/uL (1-3.4); LYMPHOCYTES % (AUTO) 18 % (22-44); MD NO; MEAN CORPUSCULAR HEMOGLOBIN 29.3 pg (27.5-34.5); MEAN CORPUSCULAR HGB CONC 34.1 g/dL (33.2-36.2); MEAN CORPUSCULAR VOLUME 85.8 fL (81-97); MEAN PLATELET VOLUME 6.3 fL (7.4-10.4); MONOCYTES # (AUTO) 0.66 x10^3/uL (0.2-0.8); MONOCYTES % (AUTO) 10 % (2-9); NEUTROPHILS # (AUTO) 4.44 x10^3/uL (1.8-6.8); NEUTROPHILS % (AUTO) 64 % (42-75); PLATELET COUNT 342 x10^3/uL (130-400); RED CELL DISTRIBUTION WIDTH 14.7 % (9.4-14.8)
[2018-06-09 05:13] LABS: ANION GAP 7 mmol/L (5-15); CALCIUM 9.3 mg/dL (8.5-10.1); CHLORIDE 93 mmol/L (98-107); CREATININE 6.95 mg/dL (0.7-1.3)
[2018-06-09] MEDS: CARVEDILOL 6.25 MG TABLET PO SCH ×2 (05:33→17:05)
[2018-06-09 06:01] LABS: SEDIMENTATION RATE > 120 mm/hr (0-10)
[2018-06-09] MEDS: MULTIVITS,STRESS FORMULA 1 TABLET PO SCH (08:40)
[2018-06-09] MEDS: SIMETHICONE 125 MG CHEW TAB PO SCH ×4 (08:40→19:49)
[2018-06-09] MEDS: LISINOPRIL 10 MG TABLET PO SCH ×2 (08:41→19:49)
[2018-06-09] MEDS: CALCITRIOL 0.25 MCG CAPSULE PO SCH (08:41)
[2018-06-09] MEDS: PANTOPROZOLE 40MG TABLET PO SCH (08:41)
[2018-06-09] MEDS: HEPARIN 5,000 UNITS/ML, 1ML SQ SCH ×2 (08:42→19:49)
[2018-06-09] MEDS: FERROUS SULFATE 325 MG TABLET PO SCH (08:49)
[2018-06-09] MEDS: SEVELAMER CARBONATE 800MG TAB PO SCH ×3 (08:49→17:05)
[2018-06-10] MEDS: PIPERACILLIN/TAZO 2.25 GM in DEXTROSE 5% 50 ML IV SCH ×3 (00:17→18:36)
[2018-06-10 01:48] VITALS: BP 108/73
[2018-06-10 05:12] VITALS: BP 115/78
[2018-06-10] MEDS: CARVEDILOL 6.25 MG TABLET PO SCH ×2 (05:16→18:36)
[2018-06-10] MEDS: OXYcodone IR 5MG TABLET PO PRN ×4 (05:16→20:02)
[2018-06-10 05:52] LABS: BASOPHILS % (AUTO) 2 % (0-1); EOSINOPHILS # (AUTO) 0.58 x10^3/uL (0-0.4); EOSINOPHILS % (AUTO) 9 % (1-7); LYMPHOCYTES # (AUTO) 1.19 x10^3/uL (1-3.4); LYMPHOCYTES % (AUTO) 18 % (22-44); MD NO; MEAN CORPUSCULAR HEMOGLOBIN 29.1 pg (27.5-34.5); MEAN CORPUSCULAR VOLUME 85.8 fL (81-97); MONOCYTES # (AUTO) 0.66 x10^3/uL (0.2-0.8); MONOCYTES % (AUTO) 10 % (2-9); NEUTROPHILS # (AUTO) 4.27 x10^3/uL (1.8-6.8); NEUTROPHILS % (AUTO) 63 % (42-75); PLATELET COUNT 335 x10^3/uL (130-400); RED BLOOD COUNT 3.08 x10^6/uL (4.38-5.82); RED CELL DISTRIBUTION WIDTH 14.9 % (9.4-14.8)
[2018-06-10 06:25] LABS: CALCIUM 9.5 mg/dL (8.5-10.1); CHLORIDE 92 mmol/L (98-107)
[2018-06-10 07:03] LABS: ALANINE AMINOTRANSFERASE 100 U/L (12-78); ALBUMIN 2.4 g/dL (3.4-5.0); ALKALINE PHOSPHATASE 80 U/L (45-117); ANION GAP 13 mmol/L (5-15); BILIRUBIN,TOTAL 0.5 mg/dL (0.2-1.0); CREATININE 9.05 mg/dL (0.7-1.3); TOTAL PROTEIN 7.8 g/dL (6.4-8.2)
[2018-06-10] MEDS: SEVELAMER CARBONATE 800MG TAB PO SCH ×4 (08:52→16:08)
[2018-06-10] MEDS: PANTOPROZOLE 40MG TABLET PO SCH (08:52)
[2018-06-10] MEDS: CALCITRIOL 0.25 MCG CAPSULE PO SCH (08:52)
[2018-06-10] MEDS: MULTIVITS,STRESS FORMULA 1 TABLET PO SCH (08:52)
[2018-06-10] MEDS: FERROUS SULFATE 325 MG TABLET PO SCH (08:52)
[2018-06-10] MEDS: HEPARIN 5,000 UNITS/ML, 1ML SQ SCH ×2 (08:52→20:02)
[2018-06-10] MEDS: SIMETHICONE 125 MG CHEW TAB PO SCH ×4 (08:52→20:02)
[2018-06-10] MEDS: LISINOPRIL 10 MG TABLET PO SCH ×2 (08:55→20:03)
[2018-06-10 08:56] VITALS: BP 108/75
[2018-06-10] MEDS: HEPARIN 5,000 UNITS/ML*10ML IVF SCH (12:30)
[2018-06-10 14:00] VITALS: BP 138/71
[2018-06-10] MEDS: ONDANSETRON 2MG/ML, 2ML IVPush PRN (16:08)
[2018-06-10 19:22] VITALS: BP 138/74
[2018-06-11] MEDS: OXYcodone IR 5MG TABLET PO PRN ×6 (00:03→22:41)
[2018-06-11] MEDS: ONDANSETRON ODT 4 MG PO PRN ×2 (00:03→13:00)
[2018-06-11] MEDS: PIPERACILLIN/TAZO 2.25 GM in DEXTROSE 5% 50 ML IV SCH ×3 (01:32→17:32)
[2018-06-11] MEDS: CARVEDILOL 6.25 MG TABLET PO SCH ×2 (04:53→17:33)
[2018-06-11 06:06] LABS: BASOPHILS % (AUTO) 2 % (0-1); EOSINOPHILS # (AUTO) 0.39 x10^3/uL (0-0.4); EOSINOPHILS % (AUTO) 6 % (1-7); LYMPHOCYTES # (AUTO) 1.24 x10^3/uL (1-3.4); LYMPHOCYTES % (AUTO) 20 % (22-44); MD NO; MEAN CORPUSCULAR HEMOGLOBIN 28.6 pg (27.5-34.5); MEAN CORPUSCULAR HGB CONC 33.3 g/dL (33.2-36.2); MEAN PLATELET VOLUME 6.4 fL (7.4-10.4); MONOCYTES # (AUTO) 0.66 x10^3/uL (0.2-0.8); MONOCYTES % (AUTO) 11 % (2-9); NEUTROPHILS # (AUTO) 3.83 x10^3/uL (1.8-6.8); NEUTROPHILS % (AUTO) 62 % (42-75); PLATELET COUNT 337 x10^3/uL (130-400); RED BLOOD COUNT 3.28 x10^6/uL (4.38-5.82); RED CELL DISTRIBUTION WIDTH 15.9 % (9.4-14.8)
[2018-06-11 06:28] LABS: CHLORIDE 98 mmol/L (98-107)
[2018-06-11 07:01] LABS: ALANINE AMINOTRANSFERASE 108 U/L (12-78); ALBUMIN 2.4 g/dL (3.4-5.0); ALKALINE PHOSPHATASE 90 U/L (45-117); ANION GAP 10 mmol/L (5-15); BILIRUBIN,TOTAL 0.4 mg/dL (0.2-1.0); CALCIUM 9.4 mg/dL (8.5-10.1); CREATININE 7.64 mg/dL (0.7-1.3); TOTAL PROTEIN 7.9 g/dL (6.4-8.2)
[2018-06-11 07:05] VITALS: BP 86/54
[2018-06-11] MEDS: SEVELAMER CARBONATE 800MG TAB PO SCH ×4 (08:00→17:32)
[2018-06-11] MEDS: CALCITRIOL 0.25 MCG CAPSULE PO SCH (08:35)
[2018-06-11] MEDS: SIMETHICONE 125 MG CHEW TAB PO SCH ×4 (08:35→22:40)
[2018-06-11] MEDS: LISINOPRIL 10 MG TABLET PO SCH (08:37)
[2018-06-11] MEDS: PANTOPROZOLE 40MG TABLET PO SCH (08:38)
[2018-06-11] MEDS: MULTIVITS,STRESS FORMULA 1 TABLET PO SCH (08:38)
[2018-06-11] MEDS: FERROUS SULFATE 325 MG TABLET PO SCH (08:38)
[2018-06-11] MEDS: HEPARIN 5,000 UNITS/ML, 1ML SQ SCH ×2 (08:39→22:40)
[2018-06-11 14:00] VITALS: BP 130/72
[2018-06-11 19:35] VITALS: BP 102/66
[2018-06-12 02:35] VITALS: BP 98/60
[2018-06-12] MEDS: PIPERACILLIN/TAZO 2.25 GM in DEXTROSE 5% 50 ML IV SCH ×2 (02:43→11:38)
[2018-06-12] MEDS: OXYcodone IR 5MG TABLET PO PRN ×5 (02:44→20:18)
[2018-06-12] MEDS: CARVEDILOL 6.25 MG TABLET PO SCH ×2 (06:00→17:44)
[2018-06-12 06:17] VITALS: BP 97/60
[2018-06-12] MEDS: SIMETHICONE 125 MG CHEW TAB PO SCH ×4 (07:00→20:18)
[2018-06-12 07:10] VITALS: BP 99/60
[2018-06-12] MEDS: SEVELAMER CARBONATE 800MG TAB PO SCH ×4 (08:00→17:53)
[2018-06-12] MEDS: FERROUS SULFATE 325 MG TABLET PO SCH (08:00)
[2018-06-12] MEDS: PANTOPROZOLE 40MG TABLET PO SCH (09:00)
[2018-06-12] MEDS: CALCITRIOL 0.25 MCG CAPSULE PO SCH (09:00)
[2018-06-12] MEDS: HEPARIN 5,000 UNITS/ML, 1ML SQ SCH ×2 (09:00→20:19)
[2018-06-12] MEDS: MULTIVITS,STRESS FORMULA 1 TABLET PO SCH (09:00)
[2018-06-12] MEDS: ONDANSETRON ODT 4 MG PO PRN (12:20)
[2018-06-12] MEDS: DARBEPOETIN 60 MCG/ML SQ SCH (16:13)
[2018-06-12] MEDS: PIPERACILLIN/TAZO/PMX 2.25GM 50 ML IV SCH (17:43)
[2018-06-12 18:49] VITALS: BP 91/58
[2018-06-13] VITALS (8 sets, daily range): BP systolic 87–112; BP diastolic 57–73
[2018-06-13] MEDS: ACETAMINOPHEN 325 MG TABLET PO PRN (01:55)
[2018-06-13] MEDS: PIPERACILLIN/TAZO/PMX 2.25GM 50 ML IV SCH ×3 (01:56→17:36)
[2018-06-13] MEDS: OXYcodone IR 5MG TABLET PO PRN ×5 (02:57→23:00)
[2018-06-13] MEDS: CARVEDILOL 6.25 MG TABLET PO SCH ×2 (05:37→17:36)
[2018-06-13 06:29] LABS: ALBUMIN 2.6 g/dL (3.4-5.0); ANION GAP 11 mmol/L (5-15); CALCIUM 9.6 mg/dL (8.5-10.1); CHLORIDE 94 mmol/L (98-107)
[2018-06-13] MEDS: SEVELAMER CARBONATE 800MG TAB PO SCH ×3 (08:54→17:36)
[2018-06-13] MEDS: MULTIVITS,STRESS FORMULA 1 TABLET PO SCH (08:54)
[2018-06-13] MEDS: FERROUS SULFATE 325 MG TABLET PO SCH (08:54)
[2018-06-13] MEDS: SIMETHICONE 125 MG CHEW TAB PO SCH ×4 (08:54→20:26)
[2018-06-13] MEDS: HEPARIN 5,000 UNITS/ML, 1ML SQ SCH ×2 (08:55→20:26)
[2018-06-13] MEDS: PANTOPROZOLE 40MG TABLET PO SCH (08:55)
[2018-06-13] MEDS: HEPARIN 5,000 UNITS/ML*10ML IVF SCH (12:30)
[2018-06-14] MEDS: PIPERACILLIN/TAZO/PMX 2.25GM 50 ML IV SCH ×3 (01:10→18:00)
[2018-06-14 01:31] VITALS: BP 98/65
[2018-06-14 04:11] VITALS: BP 107/72
[2018-06-14] MEDS: OXYcodone IR 5MG TABLET PO PRN ×4 (04:12→20:22)
[2018-06-14] MEDS: CARVEDILOL 6.25 MG TABLET PO SCH ×3 (05:19→18:00)
[2018-06-14 05:52] LABS: INTERNATIONAL NORMALIZED RATIO 1.17 (0.93-1.1); PROTHROMBIN TIME 12.3 Seconds (9.6-11.5)
[2018-06-14 05:54] LABS: ALBUMIN 2.6 g/dL (3.4-5.0); CHLORIDE 92 mmol/L (98-107)
[2018-06-14 06:06] LABS: ANION GAP 12 mmol/L (5-15); CALCIUM 10.1 mg/dL (8.5-10.1)
[2018-06-14 06:41] LABS: BASOPHILS # (AUTO) 0.06 x10^3/uL (0-0.1); BASOPHILS % (AUTO) 1 % (0-1); EOSINOPHILS # (AUTO) 0.58 x10^3/uL (0-0.4); EOSINOPHILS % (AUTO) 10 % (1-7); LYMPHOCYTES % (AUTO) 19 % (22-44); MD NO; MEAN CORPUSCULAR HEMOGLOBIN 28.8 pg (27.5-34.5); MEAN CORPUSCULAR HGB CONC 33.3 g/dL (33.2-36.2); MEAN CORPUSCULAR VOLUME 86.4 fL (81-97); MEAN PLATELET VOLUME 7.2 fL (7.4-10.4); MONOCYTES # (AUTO) 0.63 x10^3/uL (0.2-0.8); MONOCYTES % (AUTO) 11 % (2-9); NEUTROPHILS # (AUTO) 3.36 x10^3/uL (1.8-6.8); NEUTROPHILS % (AUTO) 59 % (42-75); PLATELET COUNT 271 x10^3/uL (130-400); RED BLOOD COUNT 3.24 x10^6/uL (4.38-5.82)
[2018-06-14 06:43] VITALS: BP 122/81
[2018-06-14 06:46] LABS: HCT (SEDRATE) 27.9 % (39.2-51.8)
[2018-06-14] MEDS ORDERED: THROMBIN 5,000 UNIT VIAL TP ONE (06:50)
[2018-06-14] MEDS ORDERED: BUPIVACAINE/PF 0.5% ONE (06:50)
[2018-06-14] MEDS ORDERED: PROTAMINE SULFATE 10 MG/ML, 5ML ONE (06:50)
[2018-06-14] MEDS ORDERED: HEPARIN 1,000 UNITS/ML, 10ML ONE (06:50)
[2018-06-14] MEDS ORDERED: LABETALOL 5MG/ML, 20ML IV PRN (07:00)
[2018-06-14] MEDS ORDERED: MIDAZOLAM 1 MG/ML, 2ML IV PRN (07:00)
[2018-06-14] MEDS ORDERED: PROMETHAZINE 25 MG SUPP PR PRN (07:00)
[2018-06-14] MEDS ORDERED: EPHEDRINE 50 MG/ML, 1ML IM PRN (07:00)
[2018-06-14] MEDS ORDERED: ALBUTEROL SULFATE 2.5 MG/3 ML NPPB PRN (07:00)
[2018-06-14] MEDS ORDERED: HYDROcodone/APAP 7.5-325MG/15ML UDC PO PRN (07:00)
[2018-06-14] MEDS ORDERED: OXYcodone 5 MG/5 ML ORAL.SOL UDC PO PRN (07:00)
[2018-06-14] MEDS: SIMETHICONE 125 MG CHEW TAB PO SCH ×4 (07:00→20:22)
[2018-06-14] MEDS ORDERED: FENTANYL PF 100 MCG/2ML IV PRN ×2 (07:00→09:30)
[2018-06-14] MEDS ORDERED: HYDROmorphone 2 MG/ML, 1ML IVPush PRN (07:00)
[2018-06-14] MEDS ORDERED: DEXAMETHASONE 4 MG/ML, 1ML IV PRN (07:00)
[2018-06-14] MEDS ORDERED: hydrALAzine 20 MG/ML, 1ML IV PRN (07:00)
[2018-06-14] MEDS ORDERED: FENTANYL PF 250 MCG/5ML ONE (07:15)
[2018-06-14] MEDS ORDERED: MIDAZOLAM 1 MG/ML, 2ML ONE (07:17)
[2018-06-14] MEDS ORDERED: LIDOCAINE 2% 100MG/5ML SYRINGE ONE (07:17)
[2018-06-14] MEDS ORDERED: PROPOFOL 10 MG/ML, 20ML ONE (07:17)
[2018-06-14] MEDS ORDERED: LIDOCAINE-MPF 2% ,5ML ONE (07:17)
[2018-06-14] MEDS ORDERED: DEXAMETHASONE 4 MG/ML, 1ML ONE (07:17)
[2018-06-14] MEDS ORDERED: ROCURONIUM 10MG/ML,5ML ONE (07:17)
[2018-06-14] MEDS ORDERED: GLYCOPYRROLATE 0.2MG/1ML, 5ML ONE (07:17)
[2018-06-14] MEDS ORDERED: LABETALOL 5MG/ML, 20ML ONE (07:38)
[2018-06-14] MEDS ORDERED: CEFAZOLIN 1,000 MG ONE (07:38)
[2018-06-14] MEDS: SEVELAMER CARBONATE 800MG TAB PO SCH ×3 (08:00→17:00)
[2018-06-14] MEDS ORDERED: FENTANYL PF 100 MCG/2ML ONE (08:40)
[2018-06-14] MEDS ORDERED: OXYcodone 5 MG/5 ML ORAL.SOL UDC ONE (08:40)
[2018-06-14] MEDS: HEPARIN 5,000 UNITS/ML, 1ML SQ SCH ×2 (09:00→20:22)
[2018-06-14] MEDS: ONDANSETRON 2MG/ML, 2ML IVPush PRN (09:33)
[2018-06-14 09:40] VITALS: BP 127/85
[2018-06-14] MEDS: PANTOPROZOLE 40MG TABLET PO SCH (12:09)
[2018-06-14] MEDS: MULTIVITS,STRESS FORMULA 1 TABLET PO SCH (12:09)
[2018-06-14] MEDS: ACETAMINOPHEN 325 MG TABLET PO PRN (12:09)
[2018-06-14] MEDS: FERROUS SULFATE 325 MG TABLET PO SCH (12:10)
[2018-06-14] MEDS: ERGOCALCIFEROL 50,000 UNIT CAPSULE PO SCH (12:13)
[2018-06-14 12:30] VITALS: BP 122/84
[2018-06-14 20:06] VITALS: BP 110/69
[2018-06-15 01:25] VITALS: BP 129/77
[2018-06-15] MEDS: PIPERACILLIN/TAZO/PMX 2.25GM 50 ML IV SCH ×3 (01:26→20:52)
[2018-06-15] MEDS: OXYcodone IR 5MG TABLET PO PRN ×5 (01:26→23:55)
[2018-06-15 05:39] VITALS: BP 146/86
[2018-06-15] MEDS: CARVEDILOL 6.25 MG TABLET PO SCH ×2 (05:42→17:50)
[2018-06-15] MEDS: SEVELAMER CARBONATE 800MG TAB PO SCH ×3 (08:33→17:50)
[2018-06-15] MEDS: PANTOPROZOLE 40MG TABLET PO SCH (08:33)
[2018-06-15] MEDS: HEPARIN 5,000 UNITS/ML, 1ML SQ SCH ×2 (08:33→20:51)
[2018-06-15] MEDS: SIMETHICONE 125 MG CHEW TAB PO SCH ×4 (08:33→20:51)
[2018-06-15] MEDS: FERROUS SULFATE 325 MG TABLET PO SCH (08:33)
[2018-06-15] MEDS: MULTIVITS,STRESS FORMULA 1 TABLET PO SCH (08:33)
[2018-06-15 09:32] VITALS: BP 119/76
[2018-06-15] MEDS ORDERED: OMNIPAQUE 350 MG/ML, 100ML BOTTLE ONE (17:29)
[2018-06-15 17:37] VITALS: BP 100/68
[2018-06-15 19:02] VITALS: BP 119/79
[2018-06-16 02:37] VITALS: BP 109/71
[2018-06-16 05:14] VITALS: BP 106/72
[2018-06-16] MEDS: OXYcodone IR 5MG TABLET PO PRN ×4 (05:17→21:33)
[2018-06-16] MEDS: PIPERACILLIN/TAZO/PMX 2.25GM 50 ML IV SCH ×3 (05:17→21:33)
[2018-06-16] MEDS: CARVEDILOL 6.25 MG TABLET PO SCH (05:18)
[2018-06-16 07:04] LABS: ALANINE AMINOTRANSFERASE 35 U/L (12-78); ALBUMIN 2.5 g/dL (3.4-5.0); ANION GAP 10 mmol/L (5-15); CALCIUM 9.2 mg/dL (8.5-10.1); CHLORIDE 93 mmol/L (98-107); CREATININE 8.36 mg/dL (0.7-1.3)
[2018-06-16 07:06] LABS: ALKALINE PHOSPHATASE 86 U/L (45-117); BILIRUBIN,TOTAL 0.3 mg/dL (0.2-1.0); TOTAL PROTEIN 7.7 g/dL (6.4-8.2)
[2018-06-16] MEDS: SIMETHICONE 125 MG CHEW TAB PO SCH ×4 (07:58→21:33)
[2018-06-16] MEDS: MULTIVITS,STRESS FORMULA 1 TABLET PO SCH (07:58)
[2018-06-16] MEDS: HEPARIN 5,000 UNITS/ML, 1ML SQ SCH ×2 (07:59→21:33)
[2018-06-16] MEDS: PANTOPROZOLE 40MG TABLET PO SCH (07:59)
[2018-06-16] MEDS: FERROUS SULFATE 325 MG TABLET PO SCH (07:59)
[2018-06-16] MEDS: SEVELAMER CARBONATE 800MG TAB PO SCH ×3 (07:59→17:00)
[2018-06-16 08:36] VITALS: BP 98/63
[2018-06-16 12:30] VITALS: BP 95/61
[2018-06-16] MEDS: HEPARIN 5,000 UNITS/ML*10ML IVF SCH (12:30)
[2018-06-16] MEDS: CARVEDILOL 3.125 MG TABLET PO SCH (17:20)
[2018-06-16 17:25] VITALS: BP 107/72
[2018-06-16 19:23] VITALS: BP 107/71
[2018-06-16] MEDS: ONDANSETRON ODT 4 MG PO PRN (22:37)
[2018-06-17] MEDS: OXYcodone IR 5MG TABLET PO PRN ×5 (01:30→23:31)
[2018-06-17 01:31] VITALS: BP 123/78
[2018-06-17] MEDS: PIPERACILLIN/TAZO/PMX 2.25GM 50 ML IV SCH ×3 (06:15→21:30)
[2018-06-17] MEDS: CARVEDILOL 3.125 MG TABLET PO SCH ×2 (06:15→16:32)
[2018-06-17 07:10] VITALS: BP 127/84
[2018-06-17 08:00] VITALS: BP 112/77
[2018-06-17] MEDS: SIMETHICONE 125 MG CHEW TAB PO SCH ×5 (09:11→21:30)
[2018-06-17] MEDS: MULTIVITS,STRESS FORMULA 1 TABLET PO SCH (09:12)
[2018-06-17] MEDS: HEPARIN 5,000 UNITS/ML, 1ML SQ SCH ×2 (09:12→21:30)
[2018-06-17] MEDS: PANTOPROZOLE 40MG TABLET PO SCH (09:12)
[2018-06-17] MEDS: FERROUS SULFATE 325 MG TABLET PO SCH (09:12)
[2018-06-17] MEDS: SEVELAMER CARBONATE 800MG TAB PO SCH ×4 (09:12→16:38)
[2018-06-17 12:02] LABS: BASOPHILS # (AUTO) 0.06 x10^3/uL (0-0.1); BASOPHILS % (AUTO) 1 % (0-1); EOSINOPHILS # (AUTO) 0.39 x10^3/uL (0-0.4); EOSINOPHILS % (AUTO) 7 % (1-7); LYMPHOCYTES # (AUTO) 0.83 x10^3/uL (1-3.4); LYMPHOCYTES % (AUTO) 15 % (22-44); MD NO; MEAN CORPUSCULAR HEMOGLOBIN 29.8 pg (27.5-34.5); MEAN CORPUSCULAR HGB CONC 34.2 g/dL (33.2-36.2); MEAN CORPUSCULAR VOLUME 86.9 fL (81-97); MEAN PLATELET VOLUME 6.6 fL (7.4-10.4); MONOCYTES # (AUTO) 0.57 x10^3/uL (0.2-0.8); MONOCYTES % (AUTO) 11 % (2-9); NEUTROPHILS # (AUTO) 3.63 x10^3/uL (1.8-6.8); NEUTROPHILS % (AUTO) 66 % (42-75); PLATELET COUNT 296 x10^3/uL (130-400); RED BLOOD COUNT 3.44 x10^6/uL (4.38-5.82); RED CELL DISTRIBUTION WIDTH 16.5 % (9.4-14.8)
[2018-06-17 13:57] VITALS: BP 108/67
[2018-06-17 18:54] VITALS: BP 94/65
[2018-06-18 02:28] VITALS: BP 104/69
[2018-06-18] MEDS: OXYcodone IR 5MG TABLET PO PRN ×4 (05:32→21:14)
[2018-06-18] MEDS: PIPERACILLIN/TAZO/PMX 2.25GM 50 ML IV SCH ×3 (05:33→21:11)
[2018-06-18] MEDS: CARVEDILOL 3.125 MG TABLET PO SCH ×2 (05:33→17:11)
[2018-06-18 06:24] LABS: CHLORIDE 97 mmol/L (98-107)
[2018-06-18 06:40] LABS: ANION GAP 8 mmol/L (5-15); CALCIUM 9.5 mg/dL (8.5-10.1); CREATININE 7.51 mg/dL (0.7-1.3)
[2018-06-18 08:00] VITALS: BP 106/68
[2018-06-18] MEDS: PANTOPROZOLE 40MG TABLET PO SCH (10:23)
[2018-06-18] MEDS: SEVELAMER CARBONATE 800MG TAB PO SCH ×3 (10:23→17:11)
[2018-06-18] MEDS: SIMETHICONE 125 MG CHEW TAB PO SCH ×4 (10:23→21:10)
[2018-06-18] MEDS: HEPARIN 5,000 UNITS/ML, 1ML SQ SCH ×2 (10:24→21:11)
[2018-06-18] MEDS: MULTIVITS,STRESS FORMULA 1 TABLET PO SCH (10:24)
[2018-06-18] MEDS: FERROUS SULFATE 325 MG TABLET PO SCH (10:24)
[2018-06-18 12:50] VITALS: BP 109/72
[2018-06-18 17:10] VITALS: BP 105/79
[2018-06-18 20:00] VITALS: BP 102/70
[2018-06-19 02:00] VITALS: BP 90/61
[2018-06-19] MEDS: PIPERACILLIN/TAZO/PMX 2.25GM 50 ML IV SCH ×3 (05:25→21:28)
[2018-06-19] MEDS: OXYcodone IR 5MG TABLET PO PRN ×4 (05:25→21:28)
[2018-06-19] MEDS: CARVEDILOL 3.125 MG TABLET PO SCH ×2 (05:25→18:00)
[2018-06-19 05:51] LABS: BASOPHILS # (AUTO) 0.07 x10^3/uL (0-0.1); BASOPHILS % (AUTO) 1 % (0-1); EOSINOPHILS # (AUTO) 0.37 x10^3/uL (0-0.4); EOSINOPHILS % (AUTO) 7 % (1-7); LYMPHOCYTES # (AUTO) 1.18 x10^3/uL (1-3.4); LYMPHOCYTES % (AUTO) 22 % (22-44); MD NO; MEAN CORPUSCULAR HEMOGLOBIN 29.7 pg (27.5-34.5); MEAN CORPUSCULAR VOLUME 87.3 fL (81-97); MEAN PLATELET VOLUME 6.7 fL (7.4-10.4); MONOCYTES # (AUTO) 0.55 x10^3/uL (0.2-0.8); MONOCYTES % (AUTO) 11 % (2-9); NEUTROPHILS # (AUTO) 3.11 x10^3/uL (1.8-6.8); NEUTROPHILS % (AUTO) 59 % (42-75); PLATELET COUNT 268 x10^3/uL (130-400); RED BLOOD COUNT 3.37 x10^6/uL (4.38-5.82); RED CELL DISTRIBUTION WIDTH 16.1 % (9.4-14.8)
[2018-06-19 05:59] LABS: ANION GAP 9 mmol/L (5-15); CALCIUM 10.3 mg/dL (8.5-10.1); CHLORIDE 94 mmol/L (98-107)
[2018-06-19 07:51] VITALS: BP 122/77
[2018-06-19] MEDS: SEVELAMER CARBONATE 800MG TAB PO SCH ×3 (08:00→16:53)
[2018-06-19] MEDS: SIMETHICONE 125 MG CHEW TAB PO SCH ×4 (08:05→21:28)
[2018-06-19] MEDS: HEPARIN 5,000 UNITS/ML, 1ML SQ SCH ×2 (08:07→21:28)
[2018-06-19] MEDS: MULTIVITS,STRESS FORMULA 1 TABLET PO SCH (08:07)
[2018-06-19] MEDS: PANTOPROZOLE 40MG TABLET PO SCH (08:07)
[2018-06-19] MEDS: FERROUS SULFATE 325 MG TABLET PO SCH (08:07)
[2018-06-19] MEDS: HEPARIN 5,000 UNITS/ML*10ML IVF SCH (12:30)
[2018-06-19 14:34] VITALS: BP 100/67
[2018-06-19] MEDS: DARBEPOETIN 60 MCG/ML SQ SCH (16:03)
[2018-06-19 18:56] VITALS: BP 96/63
[2018-06-20 00:45] VITALS: BP 96/63
[2018-06-20] MEDS: OXYcodone IR 5MG TABLET PO PRN ×5 (01:39→21:23)
[2018-06-20] MEDS: PIPERACILLIN/TAZO/PMX 2.25GM 50 ML IV SCH ×3 (05:44→21:22)
[2018-06-20] MEDS: CARVEDILOL 3.125 MG TABLET PO SCH (05:50)
[2018-06-20 06:16] LABS: BASOPHILS # (AUTO) 0.06 x10^3/uL (0-0.1); BASOPHILS % (AUTO) 1 % (0-1); EOSINOPHILS # (AUTO) 0.26 x10^3/uL (0-0.4); EOSINOPHILS % (AUTO) 5 % (1-7); LYMPHOCYTES % (AUTO) 24 % (22-44); MD NO; MEAN CORPUSCULAR HEMOGLOBIN 29.6 pg (27.5-34.5); MEAN CORPUSCULAR HGB CONC 33.9 g/dL (33.2-36.2); MEAN CORPUSCULAR VOLUME 87.3 fL (81-97); MEAN PLATELET VOLUME 6.6 fL (7.4-10.4); MONOCYTES # (AUTO) 0.58 x10^3/uL (0.2-0.8); MONOCYTES % (AUTO) 11 % (2-9); NEUTROPHILS # (AUTO) 2.97 x10^3/uL (1.8-6.8); NEUTROPHILS % (AUTO) 59 % (42-75); PLATELET COUNT 247 x10^3/uL (130-400); RED BLOOD COUNT 3.27 x10^6/uL (4.38-5.82); RED CELL DISTRIBUTION WIDTH 16.2 % (9.4-14.8)
[2018-06-20 06:27] LABS: ANION GAP 9 mmol/L (5-15); CALCIUM 9.8 mg/dL (8.5-10.1); CHLORIDE 93 mmol/L (98-107); CREATININE 6.92 mg/dL (0.7-1.3)
[2018-06-20 07:12] VITALS: BP 97/65
[2018-06-20] MEDS: PANTOPROZOLE 40MG TABLET PO SCH (07:39)
[2018-06-20] MEDS: SIMETHICONE 125 MG CHEW TAB PO SCH ×4 (07:39→21:22)
[2018-06-20] MEDS: FERROUS SULFATE 325 MG TABLET PO SCH (07:39)
[2018-06-20] MEDS: MULTIVITS,STRESS FORMULA 1 TABLET PO SCH (07:39)
[2018-06-20] MEDS: HEPARIN 5,000 UNITS/ML, 1ML SQ SCH ×2 (07:40→21:22)
[2018-06-20] MEDS: SEVELAMER CARBONATE 800MG TAB PO SCH ×3 (07:40→17:00)
[2018-06-20 16:08] VITALS: BP 99/67
[2018-06-20 16:09] VITALS: BP 99/67
[2018-06-20 21:08] VITALS: BP 115/76
[2018-06-21 01:25] VITALS: BP 100/72
[2018-06-21] MEDS: ACETAMINOPHEN 325 MG TABLET PO PRN ×2 (01:36→18:39)
[2018-06-21 05:13] LABS: BASOPHILS # (AUTO) 0.05 x10^3/uL (0-0.1); BASOPHILS % (AUTO) 1 % (0-1); EOSINOPHILS # (AUTO) 0.24 x10^3/uL (0-0.4); EOSINOPHILS % (AUTO) 6 % (1-7); LYMPHOCYTES # (AUTO) 1.09 x10^3/uL (1-3.4); LYMPHOCYTES % (AUTO) 25 % (22-44); MD NO; MEAN CORPUSCULAR HEMOGLOBIN 28.9 pg (27.5-34.5); MEAN CORPUSCULAR HGB CONC 32.9 g/dL (33.2-36.2); MEAN CORPUSCULAR VOLUME 87.6 fL (81-97); MEAN PLATELET VOLUME 6.6 fL (7.4-10.4); MONOCYTES # (AUTO) 0.51 x10^3/uL (0.2-0.8); MONOCYTES % (AUTO) 12 % (2-9); NEUTROPHILS # (AUTO) 2.48 x10^3/uL (1.8-6.8); NEUTROPHILS % (AUTO) 57 % (42-75); PLATELET COUNT 243 x10^3/uL (130-400); RED BLOOD COUNT 3.38 x10^6/uL (4.38-5.82); RED CELL DISTRIBUTION WIDTH 16.3 % (9.4-14.8)
[2018-06-21] MEDS: PIPERACILLIN/TAZO/PMX 2.25GM 50 ML IV SCH ×3 (05:15→21:41)
[2018-06-21 05:28] LABS: ANION GAP 9 mmol/L (5-15); CALCIUM 10.2 mg/dL (8.5-10.1); CHLORIDE 94 mmol/L (98-107)
[2018-06-21 05:37] LABS: CREATININE 8.88 mg/dL (0.7-1.3)
[2018-06-21 06:53] VITALS: BP 110/76
[2018-06-21] MEDS: SEVELAMER CARBONATE 800MG TAB PO SCH ×3 (08:00→17:00)
[2018-06-21] MEDS: SIMETHICONE 125 MG CHEW TAB PO SCH ×4 (09:10→20:32)
[2018-06-21] MEDS: FERROUS SULFATE 325 MG TABLET PO SCH (09:11)
[2018-06-21] MEDS: HEPARIN 5,000 UNITS/ML, 1ML SQ SCH ×2 (09:11→20:32)
[2018-06-21] MEDS: PANTOPROZOLE 40MG TABLET PO SCH (09:11)
[2018-06-21] MEDS: ERGOCALCIFEROL 50,000 UNIT CAPSULE PO SCH (09:22)
[2018-06-21] MEDS: MULTIVITS,STRESS FORMULA 1 TABLET PO SCH (09:22)
[2018-06-21] MEDS: OXYcodone IR 5MG TABLET PO PRN ×3 (09:22→20:32)
[2018-06-21 13:22] VITALS: BP 116/78
[2018-06-21 19:07] VITALS: BP 98/67
[2018-06-21 20:31] VITALS: BP 105/69
[2018-06-22 03:03] VITALS: BP 111/70
[2018-06-22] MEDS: PIPERACILLIN/TAZO/PMX 2.25GM 50 ML IV SCH ×3 (05:14→21:50)
[2018-06-22 05:52] LABS: BASOPHILS # (AUTO) 0.03 x10^3/uL (0-0.1); BASOPHILS % (AUTO) 1 % (0-1); EOSINOPHILS # (AUTO) 0.25 x10^3/uL (0-0.4); EOSINOPHILS % (AUTO) 6 % (1-7); LYMPHOCYTES # (AUTO) 1.02 x10^3/uL (1-3.4); LYMPHOCYTES % (AUTO) 24 % (22-44); MD NO; MEAN CORPUSCULAR HEMOGLOBIN 30.9 pg (27.5-34.5); MEAN CORPUSCULAR HGB CONC 35.1 g/dL (33.2-36.2); MEAN CORPUSCULAR VOLUME 88.1 fL (81-97); MEAN PLATELET VOLUME 6.1 fL (7.4-10.4); MONOCYTES # (AUTO) 0.49 x10^3/uL (0.2-0.8); MONOCYTES % (AUTO) 12 % (2-9); NEUTROPHILS # (AUTO) 2.47 x10^3/uL (1.8-6.8); NEUTROPHILS % (AUTO) 58 % (42-75); PLATELET COUNT 246 x10^3/uL (130-400); RED BLOOD COUNT 3.18 x10^6/uL (4.38-5.82); RED CELL DISTRIBUTION WIDTH 16.3 % (9.4-14.8)
[2018-06-22 06:06] LABS: ALBUMIN 2.5 g/dL (3.4-5.0); ANION GAP 8 mmol/L (5-15); CALCIUM 9.4 mg/dL (8.5-10.1); CHLORIDE 98 mmol/L (98-107)
[2018-06-22] MEDS: SIMETHICONE 125 MG CHEW TAB PO SCH ×4 (07:00→21:51)
[2018-06-22 07:11] VITALS: BP 102/69
[2018-06-22] MEDS: SEVELAMER CARBONATE 800MG TAB PO SCH ×3 (08:00→17:00)
[2018-06-22] MEDS: OXYcodone IR 5MG TABLET PO PRN ×4 (08:03→21:53)
[2018-06-22] MEDS: HEPARIN 5,000 UNITS/ML, 1ML SQ SCH ×2 (09:00→21:51)
[2018-06-22] MEDS: HEPARIN 5,000 UNITS/ML*10ML IVF SCH (12:08)
[2018-06-22] MEDS: MULTIVITS,STRESS FORMULA 1 TABLET PO SCH (12:09)
[2018-06-22] MEDS: PANTOPROZOLE 40MG TABLET PO SCH (12:10)
[2018-06-22 13:05] VITALS: BP 104/70
[2018-06-22 20:22] VITALS: BP 98/63
[2018-06-22 21:50] VITALS: BP 105/68
[2018-06-23 01:21] VITALS: BP 103/66
[2018-06-23] MEDS: PIPERACILLIN/TAZO/PMX 2.25GM 50 ML IV SCH ×3 (05:31→20:54)
[2018-06-23 06:40] LABS: BASOPHILS # (AUTO) 0.04 x10^3/uL (0-0.1); BASOPHILS % (AUTO) 1 % (0-1); EOSINOPHILS % (AUTO) 5 % (1-7); LYMPHOCYTES # (AUTO) 1.05 x10^3/uL (1-3.4); LYMPHOCYTES % (AUTO) 24 % (22-44); MD NO; MEAN CORPUSCULAR HEMOGLOBIN 29.7 pg (27.5-34.5); MEAN CORPUSCULAR HGB CONC 33.5 g/dL (33.2-36.2); MEAN CORPUSCULAR VOLUME 88.7 fL (81-97); MEAN PLATELET VOLUME 6.4 fL (7.4-10.4); MONOCYTES % (AUTO) 11 % (2-9); NEUTROPHILS # (AUTO) 2.67 x10^3/uL (1.8-6.8); NEUTROPHILS % (AUTO) 60 % (42-75); PLATELET COUNT 253 x10^3/uL (130-400); RED BLOOD COUNT 3.24 x10^6/uL (4.38-5.82); RED CELL DISTRIBUTION WIDTH 16.9 % (9.4-14.8)
[2018-06-23 06:52] LABS: ANION GAP 7 mmol/L (5-15); CALCIUM 9.4 mg/dL (8.5-10.1); CHLORIDE 95 mmol/L (98-107); CREATININE 7.65 mg/dL (0.7-1.3)
[2018-06-23 07:20] VITALS: BP 120/80
[2018-06-23] MEDS: SEVELAMER CARBONATE 800MG TAB PO SCH ×3 (08:00→17:00)
[2018-06-23] MEDS: MULTIVITS,STRESS FORMULA 1 TABLET PO SCH (09:33)
[2018-06-23] MEDS: SIMETHICONE 125 MG CHEW TAB PO SCH ×4 (09:33→20:54)
[2018-06-23] MEDS: PANTOPROZOLE 40MG TABLET PO SCH (09:34)
[2018-06-23] MEDS: HEPARIN 5,000 UNITS/ML, 1ML SQ SCH ×2 (09:34→20:54)
[2018-06-23] MEDS: OXYcodone IR 5MG TABLET PO PRN ×3 (10:59→22:14)
[2018-06-23 12:22] VITALS: BP 91/51
[2018-06-23 19:41] VITALS: BP 113/75
[2018-06-24 00:55] VITALS: BP 107/68
[2018-06-24] MEDS: OXYcodone IR 5MG TABLET PO PRN ×4 (03:23→21:37)
[2018-06-24] MEDS: PIPERACILLIN/TAZO/PMX 2.25GM 50 ML IV SCH ×3 (05:46→21:38)
[2018-06-24 06:09] LABS: BASOPHILS # (AUTO) 0.06 x10^3/uL (0-0.1); BASOPHILS % (AUTO) 1 % (0-1); EOSINOPHILS # (AUTO) 0.22 x10^3/uL (0-0.4); EOSINOPHILS % (AUTO) 5 % (1-7); LYMPHOCYTES # (AUTO) 1.11 x10^3/uL (1-3.4); LYMPHOCYTES % (AUTO) 24 % (22-44); MD NO; MEAN CORPUSCULAR HEMOGLOBIN 30.2 pg (27.5-34.5); MEAN CORPUSCULAR HGB CONC 34.4 g/dL (33.2-36.2); MEAN PLATELET VOLUME 6.1 fL (7.4-10.4); MONOCYTES # (AUTO) 0.56 x10^3/uL (0.2-0.8); MONOCYTES % (AUTO) 12 % (2-9); NEUTROPHILS # (AUTO) 2.61 x10^3/uL (1.8-6.8); NEUTROPHILS % (AUTO) 57 % (42-75); PLATELET COUNT 241 x10^3/uL (130-400); RED BLOOD COUNT 3.28 x10^6/uL (4.38-5.82); RED CELL DISTRIBUTION WIDTH 16.4 % (9.4-14.8)
[2018-06-24 06:13] LABS: ANION GAP 8 mmol/L (5-15); CALCIUM 9.4 mg/dL (8.5-10.1); CHLORIDE 99 mmol/L (98-107)
[2018-06-24 06:15] LABS: CREATININE 9.08 mg/dL (0.7-1.3)
[2018-06-24] MEDS: SIMETHICONE 125 MG CHEW TAB PO SCH ×4 (07:00→21:37)
[2018-06-24 07:43] VITALS: BP 108/72
[2018-06-24] MEDS: SEVELAMER CARBONATE 800MG TAB PO SCH ×3 (08:00→17:00)
[2018-06-24] MEDS: MULTIVITS,STRESS FORMULA 1 TABLET PO SCH (09:00)
[2018-06-24] MEDS: PANTOPROZOLE 40MG TABLET PO SCH (09:00)
[2018-06-24] MEDS: HEPARIN 5,000 UNITS/ML, 1ML SQ SCH ×2 (10:29→21:37)
[2018-06-24] MEDS: ONDANSETRON 2MG/ML, 2ML IVPush PRN ×2 (13:16→21:44)
[2018-06-24] MEDS: HEPARIN 5,000 UNITS/ML*10ML IVF SCH (14:34)
[2018-06-24 15:06] VITALS: BP 117/81
[2018-06-24 19:29] VITALS: BP 112/78
[2018-06-25 01:06] VITALS: BP 99/58
[2018-06-25] MEDS: OXYcodone IR 5MG TABLET PO PRN ×6 (01:40→22:18)
[2018-06-25 05:39] LABS: CHLORIDE 99 mmol/L (98-107)
[2018-06-25 05:41] LABS: BASOPHILS # (AUTO) 0.04 x10^3/uL (0-0.1); BASOPHILS % (AUTO) 1 % (0-1); EOSINOPHILS # (AUTO) 0.14 x10^3/uL (0-0.4); EOSINOPHILS % (AUTO) 3 % (1-7); LYMPHOCYTES # (AUTO) 1.36 x10^3/uL (1-3.4); LYMPHOCYTES % (AUTO) 25 % (22-44); MD NO; MEAN CORPUSCULAR HEMOGLOBIN 29.4 pg (27.5-34.5); MEAN CORPUSCULAR HGB CONC 33.4 g/dL (33.2-36.2); MEAN PLATELET VOLUME 6.7 fL (7.4-10.4); MONOCYTES # (AUTO) 0.61 x10^3/uL (0.2-0.8); MONOCYTES % (AUTO) 11 % (2-9); NEUTROPHILS # (AUTO) 3.31 x10^3/uL (1.8-6.8); NEUTROPHILS % (AUTO) 61 % (42-75); PLATELET COUNT 194 x10^3/uL (130-400); RED BLOOD COUNT 3.31 x10^6/uL (4.38-5.82); RED CELL DISTRIBUTION WIDTH 16.5 % (9.4-14.8)
[2018-06-25 05:42] LABS: ANION GAP 7 mmol/L (5-15); CALCIUM 9.8 mg/dL (8.5-10.1); CREATININE 6.87 mg/dL (0.7-1.3)
[2018-06-25] MEDS: PIPERACILLIN/TAZO/PMX 2.25GM 50 ML IV SCH ×3 (05:47→22:17)
[2018-06-25 08:00] VITALS: BP 106/69
[2018-06-25] MEDS: SEVELAMER CARBONATE 800MG TAB PO SCH ×3 (08:00→17:00)
[2018-06-25] MEDS: HEPARIN 5,000 UNITS/ML, 1ML SQ SCH ×2 (09:00→22:18)
[2018-06-25] MEDS: SIMETHICONE 125 MG CHEW TAB PO SCH ×4 (09:21→22:18)
[2018-06-25] MEDS: PANTOPROZOLE 40MG TABLET PO SCH (09:22)
[2018-06-25] MEDS: MULTIVITS,STRESS FORMULA 1 TABLET PO SCH (09:22)
[2018-06-25 13:19] VITALS: BP 111/73
[2018-06-25 20:00] VITALS: BP 107/63
[2018-06-26 01:05] VITALS: BP 104/66
[2018-06-26] MEDS: OXYcodone IR 5MG TABLET PO PRN ×5 (05:28→22:03)
[2018-06-26] MEDS: PIPERACILLIN/TAZO/PMX 2.25GM 50 ML IV SCH ×2 (05:28→16:48)
[2018-06-26] MEDS: SIMETHICONE 125 MG CHEW TAB PO SCH ×4 (05:28→22:03)
[2018-06-26 05:54] LABS: BASOPHILS # (AUTO) 0.04 x10^3/uL (0-0.1); BASOPHILS % (AUTO) 1 % (0-1); EOSINOPHILS # (AUTO) 0.24 x10^3/uL (0-0.4); EOSINOPHILS % (AUTO) 5 % (1-7); LYMPHOCYTES # (AUTO) 1.22 x10^3/uL (1-3.4); LYMPHOCYTES % (AUTO) 27 % (22-44); MD NO; MEAN CORPUSCULAR HEMOGLOBIN 30.3 pg (27.5-34.5); MEAN CORPUSCULAR HGB CONC 34.3 g/dL (33.2-36.2); MEAN CORPUSCULAR VOLUME 88.4 fL (81-97); MEAN PLATELET VOLUME 6.2 fL (7.4-10.4); MONOCYTES # (AUTO) 0.43 x10^3/uL (0.2-0.8); MONOCYTES % (AUTO) 10 % (2-9); NEUTROPHILS # (AUTO) 2.56 x10^3/uL (1.8-6.8); NEUTROPHILS % (AUTO) 57 % (42-75); PLATELET COUNT 205 x10^3/uL (130-400); RED BLOOD COUNT 3.19 x10^6/uL (4.38-5.82); RED CELL DISTRIBUTION WIDTH 16.3 % (9.4-14.8)
[2018-06-26 06:13] LABS: ANION GAP 9 mmol/L (5-15); CALCIUM 9.5 mg/dL (8.5-10.1); CHLORIDE 101 mmol/L (98-107)
[2018-06-26 06:16] LABS: CREATININE 8.54 mg/dL (0.7-1.3)
[2018-06-26 07:35] VITALS: BP 110/75
[2018-06-26] MEDS: HEPARIN 5,000 UNITS/ML, 1ML SQ SCH ×2 (09:24→22:04)
[2018-06-26] MEDS: MULTIVITS,STRESS FORMULA 1 TABLET PO SCH (09:24)
[2018-06-26] MEDS: SEVELAMER CARBONATE 800MG TAB PO SCH ×3 (09:25→16:48)
[2018-06-26] MEDS: PANTOPROZOLE 40MG TABLET PO SCH (09:25)
[2018-06-26] MEDS: ONDANSETRON 2MG/ML, 2ML IVPush PRN (11:16)
[2018-06-26] MEDS: ACETAMINOPHEN 325 MG TABLET PO PRN (16:48)
[2018-06-26] MEDS ORDERED: DARBEPOETIN 60 MCG/ML SQ SCH (16:54)
[2018-06-26 19:25] VITALS: BP 112/78
[2018-06-27 00:25] VITALS: BP 107/75
[2018-06-27] MEDS: PIPERACILLIN/TAZO/PMX 2.25GM 50 ML IV SCH ×3 (01:15→16:04)
[2018-06-27] MEDS: SIMETHICONE 125 MG CHEW TAB PO SCH ×4 (06:04→22:22)
[2018-06-27 06:06] LABS: BASOPHILS # (AUTO) 0.06 x10^3/uL (0-0.1); BASOPHILS % (AUTO) 1 % (0-1); EOSINOPHILS # (AUTO) 0.13 x10^3/uL (0-0.4); EOSINOPHILS % (AUTO) 3 % (1-7); LYMPHOCYTES # (AUTO) 1.41 x10^3/uL (1-3.4); LYMPHOCYTES % (AUTO) 31 % (22-44); MD NO; MEAN CORPUSCULAR HEMOGLOBIN 29.3 pg (27.5-34.5); MEAN CORPUSCULAR HGB CONC 32.9 g/dL (33.2-36.2); MEAN PLATELET VOLUME 6.6 fL (7.4-10.4); MONOCYTES # (AUTO) 0.52 x10^3/uL (0.2-0.8); MONOCYTES % (AUTO) 12 % (2-9); NEUTROPHILS # (AUTO) 2.39 x10^3/uL (1.8-6.8); NEUTROPHILS % (AUTO) 53 % (42-75); PLATELET COUNT 195 x10^3/uL (130-400); RED BLOOD COUNT 3.32 x10^6/uL (4.38-5.82); RED CELL DISTRIBUTION WIDTH 17.1 % (9.4-14.8)
[2018-06-27 06:18] LABS: ANION GAP 7 mmol/L (5-15); CALCIUM 9.7 mg/dL (8.5-10.1); CHLORIDE 103 mmol/L (98-107)
[2018-06-27 06:20] LABS: CREATININE 6.78 mg/dL (0.7-1.3)
[2018-06-27] MEDS: HEPARIN 5,000 UNITS/ML, 1ML SQ SCH ×2 (07:49→22:22)
[2018-06-27] MEDS: OXYcodone IR 5MG TABLET PO PRN ×4 (07:49→22:22)
[2018-06-27] MEDS: PANTOPROZOLE 40MG TABLET PO SCH (07:49)
[2018-06-27] MEDS: SEVELAMER CARBONATE 800MG TAB PO SCH ×3 (07:49→16:04)
[2018-06-27] MEDS: MULTIVITS,STRESS FORMULA 1 TABLET PO SCH (07:49)
[2018-06-27 08:03] VITALS: BP 112/71
[2018-06-27 14:15] VITALS: BP 127/86
[2018-06-27 19:00] VITALS: BP 108/72
[2018-06-28] MEDS: PIPERACILLIN/TAZO/PMX 2.25GM 50 ML IV SCH ×3 (00:54→16:39)
[2018-06-28 02:09] VITALS: BP 115/72
[2018-06-28 05:43] LABS: HCT (SEDRATE) 28.2 % (39.2-51.8)
[2018-06-28 05:44] LABS: BASOPHILS # (AUTO) 0.05 x10^3/uL (0-0.1); BASOPHILS % (AUTO) 1 % (0-1); EOSINOPHILS # (AUTO) 0.16 x10^3/uL (0-0.4); EOSINOPHILS % (AUTO) 4 % (1-7); LYMPHOCYTES # (AUTO) 1.14 x10^3/uL (1-3.4); LYMPHOCYTES % (AUTO) 29 % (22-44); MD NO; MEAN CORPUSCULAR HEMOGLOBIN 30.2 pg (27.5-34.5); MEAN CORPUSCULAR HGB CONC 33.9 g/dL (33.2-36.2); MEAN CORPUSCULAR VOLUME 89.1 fL (81-97); MEAN PLATELET VOLUME 6.5 fL (7.4-10.4); MONOCYTES # (AUTO) 0.41 x10^3/uL (0.2-0.8); MONOCYTES % (AUTO) 10 % (2-9); NEUTROPHILS # (AUTO) 2.23 x10^3/uL (1.8-6.8); NEUTROPHILS % (AUTO) 56 % (42-75); PLATELET COUNT 202 x10^3/uL (130-400); RED BLOOD COUNT 3.14 x10^6/uL (4.38-5.82); RED CELL DISTRIBUTION WIDTH 17.2 % (9.4-14.8)
[2018-06-28 05:53] LABS: CALCIUM 10.1 mg/dL (8.5-10.1)
[2018-06-28 05:56] LABS: ALBUMIN 2.6 g/dL (3.4-5.0); CHLORIDE 103 mmol/L (98-107)
[2018-06-28 06:06] LABS: % IRON SATURATION 42 % (20-55); ALANINE AMINOTRANSFERASE 53 U/L (12-78); ALKALINE PHOSPHATASE 81 U/L (45-117); ANION GAP 9 mmol/L (5-15); BILIRUBIN,TOTAL 0.8 mg/dL (0.2-1.0); CALCIUM 9.3 mg/dL (8.5-10.1); IRON LEVEL 76 mcg/dL (65-175); TOTAL IRON BINDING CAPACITY 180 mcg/dL (250-450); TOTAL PROTEIN 7.2 g/dL (6.4-8.2)
[2018-06-28 07:39] VITALS: BP 111/74
[2018-06-28] MEDS: SEVELAMER CARBONATE 800MG TAB PO SCH ×3 (08:00→16:39)
[2018-06-28] MEDS: HEPARIN 5,000 UNITS/ML, 1ML SQ SCH ×2 (08:45→20:40)
[2018-06-28] MEDS: MULTIVITS,STRESS FORMULA 1 TABLET PO SCH (08:46)
[2018-06-28] MEDS: SIMETHICONE 125 MG CHEW TAB PO SCH ×4 (08:46→20:40)
[2018-06-28] MEDS: PANTOPROZOLE 40MG TABLET PO SCH (08:46)
[2018-06-28] MEDS: OXYcodone IR 5MG TABLET PO PRN ×4 (08:51→22:47)
[2018-06-28] MEDS: HEPARIN 5,000 UNITS/ML*10ML IVF SCH (11:58)
[2018-06-28 13:29] VITALS: BP 120/81
[2018-06-28 18:56] VITALS: BP 124/72
[2018-06-28] MEDS: ONDANSETRON 2MG/ML, 2ML IVPush PRN (22:47)
[2018-06-29] MEDS: PIPERACILLIN/TAZO/PMX 2.25GM 50 ML IV SCH ×3 (00:04→20:44)
[2018-06-29 01:57] VITALS: BP 113/66
[2018-06-29 05:26] LABS: BASOPHILS # (AUTO) 0.05 x10^3/uL (0-0.1); BASOPHILS % (AUTO) 1 % (0-1); EOSINOPHILS # (AUTO) 0.23 x10^3/uL (0-0.4); EOSINOPHILS % (AUTO) 5 % (1-7); LYMPHOCYTES # (AUTO) 1.09 x10^3/uL (1-3.4); LYMPHOCYTES % (AUTO) 24 % (22-44); MD NO; MEAN CORPUSCULAR HEMOGLOBIN 30.4 pg (27.5-34.5); MEAN CORPUSCULAR VOLUME 89.2 fL (81-97); MEAN PLATELET VOLUME 6.3 fL (7.4-10.4); MONOCYTES % (AUTO) 9 % (2-9); NEUTROPHILS # (AUTO) 2.72 x10^3/uL (1.8-6.8); NEUTROPHILS % (AUTO) 61 % (42-75); PLATELET COUNT 228 x10^3/uL (130-400); RED BLOOD COUNT 3.08 x10^6/uL (4.38-5.82)
[2018-06-29 05:35] LABS: ALANINE AMINOTRANSFERASE 51 U/L (12-78); ALBUMIN 2.5 g/dL (3.4-5.0); CALCIUM 9.4 mg/dL (8.5-10.1); CHLORIDE 105 mmol/L (98-107)
[2018-06-29 05:37] LABS: ALKALINE PHOSPHATASE 77 U/L (45-117); ANION GAP 11 mmol/L (5-15); BILIRUBIN,TOTAL 0.3 mg/dL (0.2-1.0); TOTAL PROTEIN 6.8 g/dL (6.4-8.2)
[2018-06-29 07:04] VITALS: BP 109/74
[2018-06-29] MEDS: PANTOPROZOLE 40MG TABLET PO SCH (08:22)
[2018-06-29] MEDS: SEVELAMER CARBONATE 800MG TAB PO SCH ×3 (08:22→20:45)
[2018-06-29] MEDS: MULTIVITS,STRESS FORMULA 1 TABLET PO SCH (08:22)
[2018-06-29] MEDS: HEPARIN 5,000 UNITS/ML, 1ML SQ SCH ×2 (08:22→20:45)
[2018-06-29] MEDS: SIMETHICONE 125 MG CHEW TAB PO SCH ×4 (08:22→20:44)
[2018-06-29] MEDS: OXYcodone IR 5MG TABLET PO PRN ×3 (08:27→20:44)
[2018-06-29 13:02] VITALS: BP 125/80
[2018-06-29] MEDS: ACETAMINOPHEN 325 MG TABLET PO PRN (15:28)
[2018-06-29 19:56] VITALS: BP 107/66
[2018-06-30] MEDS: ONDANSETRON 2MG/ML, 2ML IVPush PRN (00:40)
[2018-06-30] MEDS: OXYcodone IR 5MG TABLET PO PRN ×4 (01:15→20:22)
[2018-06-30 02:45] VITALS: BP 102/63
[2018-06-30] MEDS: PIPERACILLIN/TAZO/PMX 2.25GM 50 ML IV SCH ×3 (04:18→20:22)
[2018-06-30 05:53] LABS: BASOPHILS # (AUTO) 0.05 x10^3/uL (0-0.1); BASOPHILS % (AUTO) 1 % (0-1); EOSINOPHILS # (AUTO) 0.18 x10^3/uL (0-0.4); EOSINOPHILS % (AUTO) 4 % (1-7); LYMPHOCYTES # (AUTO) 1.42 x10^3/uL (1-3.4); LYMPHOCYTES % (AUTO) 29 % (22-44); MD NO; MEAN CORPUSCULAR HEMOGLOBIN 29.5 pg (27.5-34.5); MEAN CORPUSCULAR HGB CONC 33.3 g/dL (33.2-36.2); MEAN CORPUSCULAR VOLUME 88.7 fL (81-97); MEAN PLATELET VOLUME 6.1 fL (7.4-10.4); MONOCYTES % (AUTO) 10 % (2-9); NEUTROPHILS # (AUTO) 2.76 x10^3/uL (1.8-6.8); NEUTROPHILS % (AUTO) 56 % (42-75); PLATELET COUNT 248 x10^3/uL (130-400); RED BLOOD COUNT 3.53 x10^6/uL (4.38-5.82); RED CELL DISTRIBUTION WIDTH 17.3 % (9.4-14.8)
[2018-06-30 06:03] LABS: ALBUMIN 2.8 g/dL (3.4-5.0); ANION GAP 11 mmol/L (5-15); CALCIUM 9.3 mg/dL (8.5-10.1); CHLORIDE 98 mmol/L (98-107)
[2018-06-30 06:07] LABS: ALANINE AMINOTRANSFERASE 56 U/L (12-78); ALKALINE PHOSPHATASE 93 U/L (45-117); BILIRUBIN,TOTAL 0.4 mg/dL (0.2-1.0); TOTAL PROTEIN 7.8 g/dL (6.4-8.2)
[2018-06-30 06:56] VITALS: BP 104/74
[2018-06-30] MEDS: SEVELAMER CARBONATE 800MG TAB PO SCH ×3 (08:00→17:00)
[2018-06-30] MEDS: SIMETHICONE 125 MG CHEW TAB PO SCH ×4 (08:14→20:22)
[2018-06-30] MEDS: MULTIVITS,STRESS FORMULA 1 TABLET PO SCH (09:11)
[2018-06-30] MEDS: HEPARIN 5,000 UNITS/ML, 1ML SQ SCH ×2 (09:11→20:23)
[2018-06-30] MEDS: PANTOPROZOLE 40MG TABLET PO SCH (09:11)
[2018-06-30] MEDS ORDERED: FUROSEMIDE 100 MG/10 ML IV ONE (09:30)
[2018-06-30] MEDS ORDERED: FUROSEMIDE 120 MG in SODIUM CHLORIDE 0.9% 50 ML IV ONE (10:00)
[2018-06-30 14:11] VITALS: BP 118/73
[2018-06-30 19:04] VITALS: BP 105/74
[2018-07-01 01:18] VITALS: BP 99/68
[2018-07-01] MEDS: PIPERACILLIN/TAZO/PMX 2.25GM 50 ML IV SCH ×3 (03:38→19:53)
[2018-07-01 05:24] LABS: BASOPHILS # (AUTO) 0.07 x10^3/uL (0-0.1); BASOPHILS % (AUTO) 2 % (0-1); EOSINOPHILS # (AUTO) 0.29 x10^3/uL (0-0.4); EOSINOPHILS % (AUTO) 7 % (1-7); LYMPHOCYTES # (AUTO) 1.25 x10^3/uL (1-3.4); LYMPHOCYTES % (AUTO) 31 % (22-44); MD NO; MEAN CORPUSCULAR HEMOGLOBIN 30.4 pg (27.5-34.5); MEAN CORPUSCULAR HGB CONC 33.9 g/dL (33.2-36.2); MEAN CORPUSCULAR VOLUME 89.8 fL (81-97); MEAN PLATELET VOLUME 6.5 fL (7.4-10.4); MONOCYTES # (AUTO) 0.51 x10^3/uL (0.2-0.8); MONOCYTES % (AUTO) 13 % (2-9); NEUTROPHILS # (AUTO) 1.87 x10^3/uL (1.8-6.8); NEUTROPHILS % (AUTO) 47 % (42-75); PLATELET COUNT 260 x10^3/uL (130-400); RED BLOOD COUNT 3.56 x10^6/uL (4.38-5.82); RED CELL DISTRIBUTION WIDTH 17.8 % (9.4-14.8)
[2018-07-01 05:31] LABS: ALBUMIN 2.8 g/dL (3.4-5.0); ANION GAP 9 mmol/L (5-15); CALCIUM 9.8 mg/dL (8.5-10.1); CHLORIDE 100 mmol/L (98-107)
[2018-07-01 05:34] LABS: ALANINE AMINOTRANSFERASE 57 U/L (12-78); ALKALINE PHOSPHATASE 96 U/L (45-117); BILIRUBIN,TOTAL 0.7 mg/dL (0.2-1.0); TOTAL PROTEIN 7.7 g/dL (6.4-8.2)
[2018-07-01 07:04] VITALS: BP 105/64
[2018-07-01] MEDS: SEVELAMER CARBONATE 800MG TAB PO SCH ×3 (08:00→19:53)
[2018-07-01] MEDS: MULTIVITS,STRESS FORMULA 1 TABLET PO SCH (08:34)
[2018-07-01] MEDS: HEPARIN 5,000 UNITS/ML, 1ML SQ SCH ×2 (08:34→20:41)
[2018-07-01] MEDS: SIMETHICONE 125 MG CHEW TAB PO SCH ×4 (08:34→20:39)
[2018-07-01] MEDS: PANTOPROZOLE 40MG TABLET PO SCH (08:34)
[2018-07-01] MEDS: OXYcodone IR 5MG TABLET PO PRN ×2 (08:38→19:53)
[2018-07-01 12:15] VITALS: BP 114/78
[2018-07-01] MEDS: HEPARIN 5,000 UNITS/ML*10ML IVF SCH (12:30)
[2018-07-01] MEDS: ACETAMINOPHEN 325 MG TABLET PO PRN (16:08)
[2018-07-01] MEDS: ONDANSETRON 2MG/ML, 2ML IVPush PRN (18:19)
[2018-07-01 20:00] VITALS: BP 113/62
[2018-07-02] MEDS: OXYcodone IR 5MG TABLET PO PRN ×4 (00:32→18:33)
[2018-07-02 01:26] VITALS: BP 102/68
[2018-07-02] MEDS: PIPERACILLIN/TAZO/PMX 2.25GM 50 ML IV SCH (03:22)
[2018-07-02 06:07] LABS: BASOPHILS # (AUTO) 0.04 x10^3/uL (0-0.1); BASOPHILS % (AUTO) 1 % (0-1); EOSINOPHILS # (AUTO) 0.18 x10^3/uL (0-0.4); EOSINOPHILS % (AUTO) 5 % (1-7); LYMPHOCYTES # (AUTO) 1.26 x10^3/uL (1-3.4); LYMPHOCYTES % (AUTO) 34 % (22-44); MD NO; MEAN CORPUSCULAR HEMOGLOBIN 30.7 pg (27.5-34.5); MEAN CORPUSCULAR VOLUME 90.1 fL (81-97); MEAN PLATELET VOLUME 6.5 fL (7.4-10.4); MONOCYTES % (AUTO) 13 % (2-9); NEUTROPHILS # (AUTO) 1.72 x10^3/uL (1.8-6.8); NEUTROPHILS % (AUTO) 47 % (42-75); PLATELET COUNT 270 x10^3/uL (130-400); RED BLOOD COUNT 3.47 x10^6/uL (4.38-5.82); RED CELL DISTRIBUTION WIDTH 17.2 % (9.4-14.8)
[2018-07-02 06:12] LABS: ALANINE AMINOTRANSFERASE 55 U/L (12-78); ALBUMIN 2.8 g/dL (3.4-5.0); ANION GAP 8 mmol/L (5-15); CALCIUM 9.2 mg/dL (8.5-10.1); CHLORIDE 98 mmol/L (98-107)
[2018-07-02 06:15] LABS: ALKALINE PHOSPHATASE 72 U/L (45-117); BILIRUBIN,TOTAL 0.4 mg/dL (0.2-1.0); CREATININE 6.55 mg/dL (0.7-1.3); TOTAL PROTEIN 7.4 g/dL (6.4-8.2)
[2018-07-02] MEDS: SIMETHICONE 125 MG CHEW TAB PO SCH ×3 (06:35→18:26)
[2018-07-02 07:25] VITALS: BP 103/69
[2018-07-02] MEDS: PANTOPROZOLE 40MG TABLET PO SCH (09:54)
[2018-07-02] MEDS: MULTIVITS,STRESS FORMULA 1 TABLET PO SCH (09:54)
[2018-07-02] MEDS: SEVELAMER CARBONATE 800MG TAB PO SCH ×3 (09:54→18:26)
[2018-07-02] MEDS: HEPARIN 5,000 UNITS/ML, 1ML SQ SCH (09:55)
[2018-07-02] MEDS: ONDANSETRON 2MG/ML, 2ML IVPush PRN (11:48)
[2018-07-02] MEDS ORDERED: ONDA4TAB13 PO (12:38)
[2018-07-02] MEDS ORDERED: MULT1TAB76 PO (12:38)
[2018-07-02] MEDS ORDERED: ACET325T14 PO (12:38)
[2018-07-02] MEDS ORDERED: DARB60VI SQ (12:38)
[2018-07-02] MEDS ORDERED: SEVE800T8 PO (12:38)
[2018-07-02] MEDS ORDERED: PANT40TA5 PO (12:38)
[2018-07-02] MEDS ORDERED: OXYC5TAB3 PO (12:38)
[2018-07-02 14:20] VITALS: BP 109/66
== END 2018-07-02 19:32 | disposition home or self-care (01) | DRG 853 ==
LOC: ED 01:37 → EDIP 03:09 → 3NE 03:47 → 4EST 05-07 10:59 → CCU 05-12 21:03 → 4WST 05-15 17:25
PROVIDERS: ADMIT Hospitalist; ATTEND Hospitalist
PROC: 0JH63XZ Insertion of Tunneled Vascular Access Device into Chest Subcutaneous Tissue and Fascia, Percutaneous Approach (ICD-10-PCS; 2018-05-10)
PROC: 02H633Z Insertion of Infusion Device into Right Atrium, Percutaneous Approach (ICD-10-PCS; 2018-05-10)
PROC: B2141ZZ Fluoroscopy of Right Heart using Low Osmolar Contrast (ICD-10-PCS; 2018-05-10)
PROC: 0D1N0Z4 Bypass Sigmoid Colon to Cutaneous, Open Approach (ICD-10-PCS; 2018-05-12)
PROC: 0DQN0ZZ Repair Sigmoid Colon, Open Approach (ICD-10-PCS; 2018-05-12)
PROC: 5A1935Z Respiratory Ventilation, Less than 24 Consecutive Hours (ICD-10-PCS; 2018-05-12)
PROC: 0BH17EZ Insertion of Endotracheal Airway into Trachea, Via Natural or Artificial Opening (ICD-10-PCS; 2018-05-12)
PROC: 0DBN0ZZ Excision of Sigmoid Colon, Open Approach (ICD-10-PCS; principal; 2018-05-12 18:00)
PROC: 0J2TXYZ Change Other Device in Trunk Subcutaneous Tissue and Fascia, External Approach (ICD-10-PCS; 2018-05-17)
PROC: 0J2TXYZ Change Other Device in Trunk Subcutaneous Tissue and Fascia, External Approach (ICD-10-PCS; 2018-05-18)
PROC: BD14YZZ Fluoroscopy of Colon using Other Contrast (ICD-10-PCS; 2018-05-20)
PROC: 30233N1 Transfusion of Nonautologous Red Blood Cells into Peripheral Vein, Percutaneous Approach (ICD-10-PCS; 2018-05-24)
PROC: 0W9F30Z Drainage of Abdominal Wall with Drainage Device, Percutaneous Approach (ICD-10-PCS; 2018-05-26)
PROC: 031C0ZF Bypass Left Radial Artery to Lower Arm Vein, Open Approach (ICD-10-PCS; 2018-06-14)
DX: A41.9 Sepsis, unspecified organism (principal); E43 Unspecified severe protein-calorie malnutrition; N18.6 End stage renal disease; J96.90 Respiratory failure, unspecified, unspecified whether with hypoxia or hypercapnia; K65.0 Generalized (acute) peritonitis; K65.1 Peritoneal abscess; T82.898A Other specified complication of vascular prosthetic devices, implants and grafts, initial encounter; T81.30XA Disruption of wound, unspecified, initial encounter; K57.20 Diverticulitis of large intestine with perforation and abscess without bleeding; Z68.41 Body mass index [BMI] 40.0-44.9, adult; Q61.3 Polycystic kidney, unspecified; E87.2 Acidosis; I12.0 Hypertensive chronic kidney disease with stage 5 chronic kidney disease or end stage renal disease; D62 Acute posthemorrhagic anemia; E87.1 Hypo-osmolality and hyponatremia; J93.9 Pneumothorax, unspecified; N17.9 Acute kidney failure, unspecified; N25.81 Secondary hyperparathyroidism of renal origin; R18.8 Other ascites; Z99.11 Dependence on respirator [ventilator] status; E87.5 Hyperkalemia; Y83.8 Other surgical procedures as the cause of abnormal reaction of the patient, or of later complication, without mention of misadventure at the time of the procedure; E66.01 Morbid (severe) obesity due to excess calories; F12.90 Cannabis use, unspecified, uncomplicated; D63.1 Anemia in chronic kidney disease; E55.9 Vitamin D deficiency, unspecified; E83.39 Other disorders of phosphorus metabolism; E83.42 Hypomagnesemia; E87.6 Hypokalemia; F41.9 Anxiety disorder, unspecified; J45.909 Unspecified asthma, uncomplicated; K59.00 Constipation, unspecified; K62.89 Other specified diseases of anus and rectum; K75.9 Inflammatory liver disease, unspecified; N25.0 Renal osteodystrophy; R65.20 Severe sepsis without septic shock; Z82.71 Family history of polycystic kidney; Z99.2 Dependence on renal dialysis; Y92.89 Other specified places as the place of occurrence of the external cause
CPT/HCPCS: 36415; 36600; 74021; 74270; 75984; 75989; 77001; J3490; J7613; J7620; 36558; 36581; 49405; 49406; 71045; 71260; 74176; 74177; 76770; 76937; 80048; 80053; 80069; 80074; 81001; 82040; 82306; 82310; 82330; 82436; 82728; 82803; 82947; 83540; 83550; 83690; 83735; 83970; 84100; 84132; 84133; 84295; 84300; 85014; 85025; 85610; 85651; 86140; 86480; 86705; 86706; 86850; 86900; 86923; 87040; 87070; 87075; 87081; 87086; 87205; 87340; 88304; 88307; 94002; 94003; 94640; 99156; 99157; C1894; G0378; J0171; J0690; J0696; J0881; J1100; J1170; J1644; J1885; J2250; J2405; J2543; J2704; J2710; J2720; J2997; J3010; J7070; P9045; Q0162; Q9966; Q9967; C1729; C1750; C1765; C1769; C9113; J0330; J0360; J1642; J2270; J2310; J2370; J3475; J7030; J7040; J7120; P9016

== ENCOUNTER → 2018-07-05 | Outpatient (CLI) | payer MEDICAID ==
[~2018-07-05] MED LIST: ACET325T14 PO; DARB60VI SQ; MULT1TAB76 PO; ONDA4TAB13 PO; OXYC5TAB3 PO; PANT40TA5 PO; SEVE800T8 PO
== END | disposition home or self-care (01) ==
LOC: WOUND 14:57
PROVIDERS: ATTEND Family Medicine
DX: T81.31XA Disruption of external operation (surgical) wound, not elsewhere classified, initial encounter (principal); Q61.2 Polycystic kidney, adult type; I13.11 Hypertensive heart and chronic kidney disease without heart failure, with stage 5 chronic kidney disease, or end stage renal disease; N18.6 End stage renal disease; J45.20 Mild intermittent asthma, uncomplicated; F41.9 Anxiety disorder, unspecified; K57.01 Diverticulitis of small intestine with perforation and abscess with bleeding; E66.01 Morbid (severe) obesity due to excess calories; Z68.34 Body mass index [BMI] 34.0-34.9, adult; Z99.2 Dependence on renal dialysis; Z87.891 Personal history of nicotine dependence; Y83.8 Other surgical procedures as the cause of abnormal reaction of the patient, or of later complication, without mention of misadventure at the time of the procedure; Y92.89 Other specified places as the place of occurrence of the external cause
CPT/HCPCS: 99215

== ENCOUNTER → 2018-07-07 | Outpatient (CLI) | payer MEDICAID | END | disposition home or self-care (01) | LOC: WOUND 12:59 | PROVIDERS: ATTEND Internal Medicine Cardiovascular Disease | DX: T81.31XA Disruption of external operation (surgical) wound, not elsewhere classified, initial encounter (principal); I12.0 Hypertensive chronic kidney disease with stage 5 chronic kidney disease or end stage renal disease; N18.6 End stage renal disease; K57.01 Diverticulitis of small intestine with perforation and abscess with bleeding; Q41.2 Congenital absence, atresia and stenosis of ileum; J45.20 Mild intermittent asthma, uncomplicated; F41.9 Anxiety disorder, unspecified; E66.01 Morbid (severe) obesity due to excess calories; Z99.2 Dependence on renal dialysis; Z87.891 Personal history of nicotine dependence; Y83.8 Other surgical procedures as the cause of abnormal reaction of the patient, or of later complication, without mention of misadventure at the time of the procedure; Y92.89 Other specified places as the place of occurrence of the external cause | CPT/HCPCS: 99213 ==

== ENCOUNTER → 2018-07-09 | Outpatient (CLI) | payer MEDICAID | END | disposition home or self-care (01) | LOC: WOUND 14:04 | PROVIDERS: ATTEND Family Medicine | DX: T81.31XD Disruption of external operation (surgical) wound, not elsewhere classified, subsequent encounter (principal); I12.0 Hypertensive chronic kidney disease with stage 5 chronic kidney disease or end stage renal disease; N18.6 End stage renal disease; Q61.2 Polycystic kidney, adult type; J45.20 Mild intermittent asthma, uncomplicated; F41.9 Anxiety disorder, unspecified; E66.01 Morbid (severe) obesity due to excess calories; K57.01 Diverticulitis of small intestine with perforation and abscess with bleeding; Z99.2 Dependence on renal dialysis; Z87.891 Personal history of nicotine dependence; Y83.8 Other surgical procedures as the cause of abnormal reaction of the patient, or of later complication, without mention of misadventure at the time of the procedure | CPT/HCPCS: 99213 ==

== ENCOUNTER → 2018-07-12 | Outpatient (CLI) | payer MEDICAID | END | disposition home or self-care (01) | LOC: WOUND 10:17 | PROVIDERS: ATTEND Family Medicine | DX: T81.31XD Disruption of external operation (surgical) wound, not elsewhere classified, subsequent encounter (principal); I12.0 Hypertensive chronic kidney disease with stage 5 chronic kidney disease or end stage renal disease; N18.6 End stage renal disease; J45.20 Mild intermittent asthma, uncomplicated; F41.9 Anxiety disorder, unspecified; E66.01 Morbid (severe) obesity due to excess calories; Q61.2 Polycystic kidney, adult type; K57.01 Diverticulitis of small intestine with perforation and abscess with bleeding; F12.90 Cannabis use, unspecified, uncomplicated; Z87.891 Personal history of nicotine dependence; Z99.2 Dependence on renal dialysis; Z68.34 Body mass index [BMI] 34.0-34.9, adult; Y83.8 Other surgical procedures as the cause of abnormal reaction of the patient, or of later complication, without mention of misadventure at the time of the procedure | CPT/HCPCS: 97597; 97598 ==

== ENCOUNTER 2018-07-19 11:12 | Outpatient (CLI) | payer MEDICAID | END 2018-07-19 23:59 | disposition home or self-care (01) | LOC: WOUND 11:12 | PROVIDERS: ATTEND Internal Medicine | DX: T81.31XD Disruption of external operation (surgical) wound, not elsewhere classified, subsequent encounter (principal); Q61.2 Polycystic kidney, adult type; K57.01 Diverticulitis of small intestine with perforation and abscess with bleeding; J45.20 Mild intermittent asthma, uncomplicated; I12.0 Hypertensive chronic kidney disease with stage 5 chronic kidney disease or end stage renal disease; N18.6 End stage renal disease; F41.9 Anxiety disorder, unspecified; E66.01 Morbid (severe) obesity due to excess calories; Z99.2 Dependence on renal dialysis; Z87.891 Personal history of nicotine dependence; Y83.8 Other surgical procedures as the cause of abnormal reaction of the patient, or of later complication, without mention of misadventure at the time of the procedure | CPT/HCPCS: 99213 ==

== ENCOUNTER 2018-07-23 10:35 | Outpatient (CLI) | payer MEDICAID | END 2018-07-23 23:59 | disposition home or self-care (01) | LOC: WOUND 10:35 | PROVIDERS: ATTEND Family Medicine | DX: T81.31XD Disruption of external operation (surgical) wound, not elsewhere classified, subsequent encounter (principal); Q61.2 Polycystic kidney, adult type; I12.0 Hypertensive chronic kidney disease with stage 5 chronic kidney disease or end stage renal disease; N18.6 End stage renal disease; K57.01 Diverticulitis of small intestine with perforation and abscess with bleeding; F41.9 Anxiety disorder, unspecified; J45.20 Mild intermittent asthma, uncomplicated; E21.1 Secondary hyperparathyroidism, not elsewhere classified; E66.01 Morbid (severe) obesity due to excess calories; Z68.34 Body mass index [BMI] 34.0-34.9, adult; Z87.891 Personal history of nicotine dependence; Y83.8 Other surgical procedures as the cause of abnormal reaction of the patient, or of later complication, without mention of misadventure at the time of the procedure | CPT/HCPCS: 97597 ==

== ENCOUNTER → 2018-07-30 | Outpatient (CLI) | payer MEDICAID | END | disposition home or self-care (01) | LOC: WOUND 10:54 | PROVIDERS: ATTEND Family Medicine | DX: T81.31XD Disruption of external operation (surgical) wound, not elsewhere classified, subsequent encounter (principal); Q61.2 Polycystic kidney, adult type; I12.0 Hypertensive chronic kidney disease with stage 5 chronic kidney disease or end stage renal disease; K57.01 Diverticulitis of small intestine with perforation and abscess with bleeding; J45.20 Mild intermittent asthma, uncomplicated; E11.22 Type 2 diabetes mellitus with diabetic chronic kidney disease; N18.6 End stage renal disease; E21.1 Secondary hyperparathyroidism, not elsewhere classified; F41.9 Anxiety disorder, unspecified; E66.01 Morbid (severe) obesity due to excess calories; Z68.34 Body mass index [BMI] 34.0-34.9, adult; Z87.891 Personal history of nicotine dependence; Z99.2 Dependence on renal dialysis | CPT/HCPCS: 97597 ==

== ENCOUNTER → 2018-08-06 | Outpatient (CLI) | payer MEDICAID | END | disposition home or self-care (01) | LOC: WOUND 10:50 | PROVIDERS: ATTEND Family Medicine | DX: T81.31XD Disruption of external operation (surgical) wound, not elsewhere classified, subsequent encounter (principal); Q61.2 Polycystic kidney, adult type; I12.0 Hypertensive chronic kidney disease with stage 5 chronic kidney disease or end stage renal disease; N18.6 End stage renal disease; F41.9 Anxiety disorder, unspecified; J45.20 Mild intermittent asthma, uncomplicated; E21.1 Secondary hyperparathyroidism, not elsewhere classified; K57.01 Diverticulitis of small intestine with perforation and abscess with bleeding; E66.01 Morbid (severe) obesity due to excess calories; Z68.34 Body mass index [BMI] 34.0-34.9, adult; Z99.2 Dependence on renal dialysis; Z87.891 Personal history of nicotine dependence; Y83.8 Other surgical procedures as the cause of abnormal reaction of the patient, or of later complication, without mention of misadventure at the time of the procedure | CPT/HCPCS: 99213 ==

== ENCOUNTER 2020-07-25 14:59 | Emergency (ER) | payer MEDICARE, MEDICAID ==
[~2020-07-25] VITALS: Ht 177.8 cm; Wt 84.0 kg
[~2020-07-25 14:59] MED LIST changes: -OXYC5TAB3 PO; +OXYC5TAB98 PO; -PANT40TA5 PO; +PANT40TA6 PO; +SERT25TA PO
--- NOTE | 2020-07-25 15:31 | NUR ---
PT COMES IN SENT FROM DIALYSIS FOR C/O RIGHT FLANK PAIN. PT STATES HE HAS HAD LEFT KIDNEY PAIN IN THE PAST AND "WAITED TOO LONG AND HAD TO BE HOSPITALIZED". PT STATES HE TOLD HIS DIALYSIS TEAM ABOUT HIS SYMPTOMS WHO SENT HIM HERE. MONITORS CONNECTED. VSS. NAD. WARM BLANKETS PROVIDED.
--- NOTE | 2020-07-25 15:45 | NUR ---
PT AMBULATED TO/FROM BATHROOM W/STEADY GAIT. URINE COLLECTED. MONITORS RECONNECTED. VSS. NAD.
--- NOTE | 2020-07-25 16:43 | NUR ---
PT RESTING ON GUBARBER. AWATING PROVIDER ORDERS. VSS. NAD. CALL LIGHT W/I REACH
[2020-07-25 17:43] LABS: MICROSCOPIC AUTO
[2020-07-25 17:49] LABS: BASOPHILS % (AUTO) 1 % (0-1); EOSINOPHILS % (AUTO) 1 % (1-7); LYMPHOCYTES % (AUTO) 28 % (22-44); MEAN CORPUSCULAR HEMOGLOBIN 27.5 pg (27.5-34.5); MEAN CORPUSCULAR HGB CONC 33.1 g/dL (33.2-36.2); MEAN PLATELET VOLUME 7.4 fL (7.4-10.4); MONOCYTES % (AUTO) 11 % (2-9); NEUTROPHILS % (AUTO) 59 % (42-75); PLATELET COUNT 159 x10^3/uL (130-400); RED BLOOD COUNT 5.75 x10^6/uL (4.38-5.82); RED CELL DISTRIBUTION WIDTH 18.6 % (9.4-14.8)
[2020-07-25 17:50] LABS: MD NO
[2020-07-25 17:55] LABS: ALANINE AMINOTRANSFERASE 35 U/L (12-78); ANION GAP 6 mmol/L (5-15); CALCIUM 10.3 mg/dL (8.5-10.1); CHLORIDE 98 mmol/L (98-107); CREATININE 7.75 mg/dL (0.7-1.3)
[2020-07-25 17:56] LABS: ALKALINE PHOSPHATASE 72 U/L (45-117); BILIRUBIN,TOTAL 0.6 mg/dL (0.2-1.0); TOTAL PROTEIN 8.4 g/dL (6.4-8.2)
[2020-07-25 19:00] VITALS: BP 111/75
--- NOTE | 2020-07-25 19:04 | NUR ---
Pt dc'd with written and verbal instructions. Pt states he understands. Rx reviewed with patient. Pt ambulatory out of ed without difficulty.
== END 2020-07-25 19:06 | disposition other institution (70) ==
LOC: ED 17:45
DX: Q61.3 Polycystic kidney, unspecified (principal); N18.9 Chronic kidney disease, unspecified; J45.909 Unspecified asthma, uncomplicated; Z87.891 Personal history of nicotine dependence
CPT/HCPCS: 36415; 74176; 80053; 81001; 83690; 85025; 99284